=== PATIENT | female | born 1955 | race African-American/Black ===

== ENCOUNTER 2017-11-08 08:00 | Emergency (ER) | payer MEDICARE, MEDICAID ==
[~2017-11-08] VITALS: Ht 157.5 cm; Wt 81.0 kg
[~2017-11-08 08:00] MED LIST: AMLODIPINE5 MG PO; ATORVASTATIN CA10 MG PO; BIOTUSSIN PO; CELEBREX100 M1 PO; CLONIDINE0.1 MG PO; DARVOCET-N 100100 MG OR; DUONEB IN; FAMOTIDINE20 M1 PO; FLEXERIL OR; FLEXERIL PO; GLYBURIDE5 M1 PO; GLYBURIDE5 MG PO; HYDROCHLOROT12.5 MG PO; INCRUSE EL62.5 MCG/I; LISINOP/HCTZ1 TA1 PO; LISINOPRIL20 MG PO; MEDDOSEPAK PO; MELOXICAM15 MG PO; MELOXICAM7.5 MG PO; NAPROSYN500 MG PO; NO HOME MEDS; PAROXETINE HCL30 MG PO; PAROXETINE20 MG PO; PAXIL20 MG OR; PREDNISONE10 MG PO; PREMARIN0.625 MG OR; PREVACID30 MG OR; PROAIR HFA IN; PROVERA5 MG OR; ROBITUSSIN AC10 ML PO; SULAR10 MG OR; TESSALON PER100 MG PO; TRAMADOL HCL50 MG PO; VENTOLIN HFA IN; ZITHROMAX250 MG PO; ZITHROMAX500 MG PO; ZPAK PO
[2017-11-08 09:09] VITALS: BP 159/82
[2017-11-08] MEDS ORDERED: LORTAB 1010 MG PO (09:19)
== END 2017-11-08 11:20 | disposition short-term general hospital (02) ==
LOC: ED 08:00
PROC: 2W3MX1Z Immobilization of Left Lower Extremity using Splint (ICD-10-PCS; principal; 2017-11-08)
DX: S82.62XA Displaced fracture of lateral malleolus of left fibula, initial encounter for closed fracture (principal); S72.422A Displaced fracture of lateral condyle of left femur, initial encounter for closed fracture; M25.562 Pain in left knee; V18.4XXA Pedal cycle driver injured in noncollision transport accident in traffic accident, initial encounter; Y92.414 Local residential or business street as the place of occurrence of the external cause; Y93.55 Activity, bike riding

== ENCOUNTER 2017-11-26 11:21 | Observation (INO) | payer MEDICARE, MEDICAID ==
[~2017-11-26] VITALS: Ht 157.5 cm; Wt 89.2 kg
[~2017-11-26 11:21] MED LIST changes: +LORTAB 1010 MG PO
[2017-11-26] MEDS ORDERED: LOVENOX40 MG/0.4 SC (12:00)
[2017-11-26] MEDS ORDERED: AMLODIPINE5 MG PO (12:02)
[2017-11-26] MEDS ORDERED: LOSARTAN POT50 MG PO (12:02)
[2017-11-26 12:24] LABS: HEMATOCRIT 30.5 % (37.0-47.0); HEMOGLOBIN 9.6 g/dl (12.0-16.0); IMMATURE GRANULOCYTES 0.8 % (0.0-1.0); MEAN CORPUSCULAR HGB 31.5 pG CALC (26.0-32.0); MEAN CORPUSCULAR HGB CONC 31.5 g/L CALC (32.0-36.0); NEUT# 10.2 thou/uL (2.00-7.15); RED BLOOD COUNT 3.05 mill/uL (4.20-5.60); RED CELL DISTRI WIDTH 13.9 % (11.5-15.5)
[2017-11-26 12:47] LABS: ALBUMIN 3.7 g/dL (3.2-5.0); BILIRUBIN, TOTAL 0.7 mg/dL (0.0-1.4); CALCIUM 10.3 mg/dL (8.4-10.2); CREATININE 1.2 mg/dL (0.5-1.0); POTASSIUM 4.2 mmol/l (3.5-5.1)
[2017-11-26 14:06] LABS: MYOGLOBIN 29 ng/mL (0 - 62)
[2017-11-26 17:00] VITALS: BP 155/89
[2017-11-26 18:00] VITALS: BP 149/75
[2017-11-27] VITALS (7 sets, daily range): BP systolic 132–154; BP diastolic 63–82
[2017-11-27 06:29] LABS: HEMATOCRIT 27.7 % (37.0-47.0); HEMOGLOBIN 8.6 g/dl (12.0-16.0); IMMATURE GRANULOCYTES 0.3 % (0.0-1.0); NEUT# 5.94 thou/uL (2.00-7.15); RED BLOOD COUNT 2.77 mill/uL (4.20-5.60); RED CELL DISTRI WIDTH 13.6 % (11.5-15.5)
[2017-11-27 06:59] LABS: ANION GAP 12 (6-22 (CALC)); BUN 17 mg/dL (8-23); BUN/CREATININE RATIO 16 (12-20 (CALC)); CALCIUM 9.8 mg/dL (8.4-10.2); CARBON DIOXIDE 22 mmol/l (22-30); CHLORIDE 108 mmol/l (95-108); CREATININE 1.1 mg/dL (0.5-1.0); GFR 50 ML/MIN (>=60 (CALC)); GFR FOR AFR.AMER. > 60 ML/MIN (>=60 (CALC)); GLUCOSE 113 mg/dL (82-115); MAGNESIUM 1.8 mg/dL (1.6-2.3); POTASSIUM 4.4 mmol/l (3.5-5.1); SODIUM 138 mmol/l (137-146)
[2017-11-27 15:01] LABS: URINE BILIRUBIN - DIPSTICK NEGATIVE (NEGATIVE); URINE BLOOD DIPSTICK NEGATIVE (NEGATIVE); URINE COLOR YELLOW; URINE GLUCOSE - DIPSTICK NEGATIVE (NEGATIVE); URINE KETONE NEGATIVE (NEGATIVE); URINE LEUK ESTERASE NEGATIVE (NEGATIVE); URINE NITRITE - DIPSTICK NEGATIVE (Negative); URINE PROTEIN - DIPSTICK NEGATIVE (NEG-TRACE); URINE UROBILINOGEN - DIPSTICK 0.2 E.U./dL (0.2)
[2017-11-27 15:02] LABS: URINE CLARITY CLEAR
[2017-11-28 05:28] VITALS: BP 155/79
[2017-11-28 06:34] LABS: HEMATOCRIT 28.2 % (37.0-47.0); HEMOGLOBIN 8.7 g/dl (12.0-16.0); IMMATURE GRANULOCYTES 0.5 % (0.0-1.0); MEAN CORPUSCULAR HGB 30.9 pG CALC (26.0-32.0); MEAN CORPUSCULAR HGB CONC 30.9 g/L CALC (32.0-36.0); NEUT# 5.37 thou/uL (2.00-7.15); RED BLOOD COUNT 2.82 mill/uL (4.20-5.60); RED CELL DISTRI WIDTH 13.4 % (11.5-15.5)
[2017-11-28 06:48] LABS: ANION GAP 12 (6-22 (CALC)); BUN 15 mg/dL (8-23); BUN/CREATININE RATIO 13 (12-20 (CALC)); CARBON DIOXIDE 23 mmol/l (22-30); CHLORIDE 109 mmol/l (95-108); CREATININE 1.1 mg/dL (0.5-1.0); GFR 50 ML/MIN (>=60 (CALC)); GFR FOR AFR.AMER. > 60 ML/MIN (>=60 (CALC)); GLUCOSE 125 mg/dL (82-115); MAGNESIUM 1.6 mg/dL (1.6-2.3); POTASSIUM 4.4 mmol/l (3.5-5.1); SODIUM 139 mmol/l (137-146)
[2017-11-28 07:23] VITALS: BP 141/78
[2017-11-28] MEDS ORDERED: OXYCODONE/ACETA1 TA8 PO (11:53)
[2017-11-28] MEDS ORDERED: RESTORIL15 MG PO (11:53)
[2017-11-28 12:02] VITALS: BP 139/79
== END 2017-11-28 14:35 | disposition home health service (06) ==
LOC: ED 11:21 → ED-I 15:04 → ED 15:58 → MS2 15:59
PROVIDERS: Emergency Medicine; Nurse Practitioner Family; ADMIT Internal Medicine; ATTEND Internal Medicine
PROC: 3E0234Z Introduction of Serum, Toxoid and Vaccine into Muscle, Percutaneous Approach (ICD-10-PCS; principal; 2017-11-28)
DX: R07.89 Other chest pain (principal); S43.402A Unspecified sprain of left shoulder joint, initial encounter; S72.92XD Unspecified fracture of left femur, subsequent encounter for closed fracture with routine healing; S82.002D Unspecified fracture of left patella, subsequent encounter for closed fracture with routine healing; S82.892D Other fracture of left lower leg, subsequent encounter for closed fracture with routine healing; M19.90 Unspecified osteoarthritis, unspecified site; F17.210 Nicotine dependence, cigarettes, uncomplicated; J44.9 Chronic obstructive pulmonary disease, unspecified; B19.20 Unspecified viral hepatitis C without hepatic coma; F32.9 Major depressive disorder, single episode, unspecified; K21.9 Gastro-esophageal reflux disease without esophagitis; G89.29 Other chronic pain; M54.9 Dorsalgia, unspecified; E11.22 Type 2 diabetes mellitus with diabetic chronic kidney disease; I12.9 Hypertensive chronic kidney disease with stage 1 through stage 4 chronic kidney disease, or unspecified chronic kidney disease; N18.9 Chronic kidney disease, unspecified; E66.9 Obesity, unspecified; X50.0XXA Overexertion from strenuous movement or load, initial encounter; V13.4XXD Pedal cycle driver injured in collision with car, pick-up truck or van in traffic accident, subsequent encounter; Z79.01 Long term (current) use of anticoagulants; Z68.36 Body mass index [BMI] 36.0-36.9, adult; M25.532 Pain in left wrist; D64.9 Anemia, unspecified; Z23 Encounter for immunization
CPT/HCPCS: J1650; Q9967

== ENCOUNTER → 2018-08-18 | Outpatient (REF) | payer MEDICARE, MEDICAID ==
[~2018-08-18] MED LIST changes: +LOSARTAN POT50 MG PO; +LOVENOX40 MG/0.4 SC; +OXYCODONE/ACETA1 TA8 PO; +RESTORIL15 MG PO
== END | disposition home or self-care (01) ==
LOC: LAB 09:47
PROVIDERS: ATTEND Internal Medicine
DX: I10 Essential (primary) hypertension (principal); E78.49 Other hyperlipidemia; N18.9 Chronic kidney disease, unspecified; E03.9 Hypothyroidism, unspecified; R53.83 Other fatigue; I50.22 Chronic systolic (congestive) heart failure; E11.65 Type 2 diabetes mellitus with hyperglycemia; E55.9 Vitamin D deficiency, unspecified

== ENCOUNTER 2019-01-27 17:08 | Observation (INO) | payer MEDICARE, MEDICAID ==
[~2019-01-27] VITALS: Ht 157.5 cm; Wt 81.8 kg
[2019-01-27] MEDS ORDERED: GLIPIZIDE5 MG PO (17:36)
[2019-01-27] MEDS ORDERED: TRELEGY ELLIPTA1 AER IN (17:38)
[2019-01-27 18:14] LABS: HEMATOCRIT 40.2 % (37.0-47.0); HEMOGLOBIN 12.8 g/dl (12.0-16.0); IMMATURE GRANULOCYTES 0.4 % (0.0-5.0); MEAN CELL VOLUME 96.9 fL CALC (80.0-100.0); MEAN CORPUSCULAR HGB 30.8 pG CALC (26.0-32.0); MEAN CORPUSCULAR HGB CONC 31.8 g/L CALC (32.0-36.0); NEUT# 7.09 thou/uL (2.00-7.15); RED BLOOD COUNT 4.15 mill/uL (4.20-5.60); RED CELL DISTRI WIDTH 12.6 % (11.5-15.5)
[2019-01-27 18:33] LABS: ALBUMIN 4.2 g/dL (3.2-5.0); ALKALINE PHOSPHATASE 134 u/l (38-126); ANION GAP 15 (6-22 (CALC)); BILIRUBIN, TOTAL 0.3 mg/dL (0.0-1.4); BUN 31 mg/dL (8-23); BUN/CREATININE RATIO 15 (12-20 (CALC)); CARBON DIOXIDE 20 mmol/l (22-30); CHLORIDE 108 mmol/l (95-108); CREATININE 2.1 mg/dL (0.5-1.0); GFR 24 ML/MIN (>=60 (CALC)); GFR FOR AFR.AMER. 29 ML/MIN (>=60 (CALC)); LIPASE 18 u/l (23-300); POTASSIUM 4.6 mmol/l (3.5-5.1); SGOT/AST 112 u/l (9-36); SODIUM 138 mmol/l (137-146); TOTAL PROTEIN 7.4 g/dL (6.3-8.2)
[2019-01-27 18:34] LABS: D-DIMER 0.27 mg/L (0.19-0.60); INTERNATIONAL NORMALIZED RATIO 0.9 RATIO (0.7-1.3); PROTHROMBIN TIME 9.8 SECONDS (9.0-12.5)
[2019-01-27 20:35] LABS: URINE BILIRUBIN - DIPSTICK NEGATIVE (NEGATIVE); URINE BLOOD DIPSTICK NEGATIVE (NEGATIVE); URINE COLOR YELLOW; URINE GLUCOSE - DIPSTICK NEGATIVE (NEGATIVE); URINE KETONE TRACE mg/dL (NEGATIVE); URINE LEUK ESTERASE NEGATIVE (NEGATIVE); URINE NITRITE - DIPSTICK NEGATIVE (Negative); URINE PH 5.5 (4.5-8.0); URINE PROTEIN - DIPSTICK TRACE mg/dL (NEG-TRACE); URINE SPECIFIC GRAVITY 1.025; URINE UROBILINOGEN - DIPSTICK 0.2 E.U./dL (0.2)
[2019-01-27 21:10] VITALS: BP 156/84
[2019-01-27 22:26] VITALS: BP 157/77
[2019-01-27 22:55] VITALS: BP 196/84
[2019-01-27 23:50] VITALS: BP 196/84
[2019-01-28] VITALS (11 sets, daily range): BP systolic 136–198; BP diastolic 61–98
[2019-01-28 06:18] LABS: HEMATOCRIT 36.6 % (37.0-47.0); HEMOGLOBIN 11.8 g/dl (12.0-16.0); IMMATURE GRANULOCYTES 0.4 % (0.0-5.0); MEAN CELL VOLUME 97.1 fL CALC (80.0-100.0); MEAN CORPUSCULAR HGB 31.3 pG CALC (26.0-32.0); MEAN CORPUSCULAR HGB CONC 32.2 g/L CALC (32.0-36.0); NEUT# 6.14 thou/uL (2.00-7.15); RED BLOOD COUNT 3.77 mill/uL (4.20-5.60); RED CELL DISTRI WIDTH 12.6 % (11.5-15.5)
[2019-01-28 06:26] LABS: CREATININE 1.3 mg/dL (0.5-1.0); POTASSIUM 4.1 mmol/l (3.5-5.1)
[2019-01-28] MEDS ORDERED: ADVAIR DISK1 PO (16:01)
[2019-01-29 04:06] VITALS: BP 149/73
[2019-01-29 05:42] LABS: ALBUMIN 3.4 g/dL (3.2-5.0); CREATININE 1.2 mg/dL (0.5-1.0); POTASSIUM 4.4 mmol/l (3.5-5.1)
[2019-01-29 07:36] VITALS: BP 175/69
[2019-01-29 11:14] VITALS: BP 143/79
[2019-01-29 15:00] VITALS: BP 137/55
== END 2019-01-29 15:34 | disposition home or self-care (01) ==
LOC: ED 17:08 → ED-I 20:00 → ED 20:18 → MS2 20:19
PROVIDERS: Emergency Medicine; Internal Medicine Nephrology; ADMIT Internal Medicine; ATTEND Internal Medicine
DX: R07.89 Other chest pain (principal); N17.9 Acute kidney failure, unspecified; I12.9 Hypertensive chronic kidney disease with stage 1 through stage 4 chronic kidney disease, or unspecified chronic kidney disease; E11.22 Type 2 diabetes mellitus with diabetic chronic kidney disease; N18.3 Chronic kidney disease, stage 3 (moderate); J44.9 Chronic obstructive pulmonary disease, unspecified; F41.1 Generalized anxiety disorder; F32.9 Major depressive disorder, single episode, unspecified; F17.200 Nicotine dependence, unspecified, uncomplicated; B19.20 Unspecified viral hepatitis C without hepatic coma; D63.1 Anemia in chronic kidney disease; E87.2 Acidosis; N25.81 Secondary hyperparathyroidism of renal origin; R55 Syncope and collapse
CPT/HCPCS: G0378

== ENCOUNTER 2019-03-08 21:21 | Emergency (ER) | payer MEDICARE, MEDICAID ==
[~2019-03-08] VITALS: Ht 157.5 cm; Wt 95.0 kg
[~2019-03-08 21:21] MED LIST changes: +ADVAIR DISK1 PO; +GLIPIZIDE5 MG PO; +TRELEGY ELLIPTA1 AER IN
[2019-03-08 21:55] LABS: HEMATOCRIT 40.9 % (37.0-47.0); HEMOGLOBIN 12.8 g/dl (12.0-16.0); IMMATURE GRANULOCYTES 0.3 % (0.0-5.0); MEAN CELL VOLUME 98.1 fL CALC (80.0-100.0); MEAN CORPUSCULAR HGB 30.7 pG CALC (26.0-32.0); MEAN CORPUSCULAR HGB CONC 31.3 g/L CALC (32.0-36.0); NEUT# 6.86 thou/uL (2.00-7.15); RED BLOOD COUNT 4.17 mill/uL (4.20-5.60); RED CELL DISTRI WIDTH 12.8 % (11.5-15.5)
[2019-03-08 22:44] LABS: CREATININE 1.7 mg/dL (0.5-1.0)
[2019-03-08] MEDS ORDERED: CYCLOBENZAPR5 MG PO (23:22)
[2019-03-09 00:03] VITALS: BP 170/79
[2019-03-09] MEDS ORDERED: PERCOCET 10/31 COMBO PO (12:42)
[2019-03-09] MEDS ORDERED: MEDDOSEPAK PO (12:42)
[2019-03-11] MEDS ORDERED: OMEPRAZOLE20 M1 PO (17:08)
[2019-03-11] MEDS ORDERED: OXYBUTYNIN CHLOR5 M1 PO (17:09)
== END 2019-03-09 00:03 | disposition home or self-care (01) ==
LOC: ED 21:21
PROVIDERS: Family Medicine
DX: M54.2 Cervicalgia (principal); E11.9 Type 2 diabetes mellitus without complications; I10 Essential (primary) hypertension

== ENCOUNTER 2019-03-09 09:35 | Emergency (ER) | payer MEDICARE, MEDICAID ==
[~2019-03-09] VITALS: Ht 157.5 cm; Wt 81.8 kg
[~2019-03-09 09:35] MED LIST changes: +CYCLOBENZAPR5 MG PO
[2019-03-09 10:32] LABS: HEMATOCRIT 39.9 % (37.0-47.0); HEMOGLOBIN 12.7 g/dl (12.0-16.0); IMMATURE GRANULOCYTES 0.4 % (0.0-5.0); MEAN CELL VOLUME 97.1 fL CALC (80.0-100.0); MEAN CORPUSCULAR HGB 30.9 pG CALC (26.0-32.0); MEAN CORPUSCULAR HGB CONC 31.8 g/L CALC (32.0-36.0); NEUT# 7.22 thou/uL (2.00-7.15); RED BLOOD COUNT 4.11 mill/uL (4.20-5.60); RED CELL DISTRI WIDTH 12.6 % (11.5-15.5)
[2019-03-09 11:48] LABS: C-REACTIVE PROTEIN 0.6 mg/dL (0-0.9)
[2019-03-09] MEDS ORDERED: PERCOCET 10/31 COMBO PO (12:42)
[2019-03-09] MEDS ORDERED: MEDDOSEPAK PO (12:42)
[2019-03-09 13:45] VITALS: BP 146/76
[2019-03-11] MEDS ORDERED: OMEPRAZOLE20 M1 PO (17:08)
[2019-03-11] MEDS ORDERED: OXYBUTYNIN CHLOR5 M1 PO (17:09)
== END 2019-03-09 13:50 | disposition home or self-care (01) ==
LOC: ED 09:35
PROVIDERS: Emergency Medicine
DX: M50.30 Other cervical disc degeneration, unspecified cervical region (principal); I10 Essential (primary) hypertension; E11.9 Type 2 diabetes mellitus without complications

== ENCOUNTER 2019-07-08 14:54 | Observation (INO) | payer MEDICARE, MEDICAID ==
[~2019-07-08] VITALS: Ht 157.5 cm; Wt 80.0 kg
[~2019-07-08 14:54] MED LIST changes: +OMEPRAZOLE20 M1 PO; +OXYBUTYNIN CHLOR5 M1 PO; +PERCOCET 10/31 COMBO PO
[2019-07-08 15:23] LABS: HEMATOCRIT 37.7 % (37.0-47.0); HEMOGLOBIN 11.9 g/dl (12.0-16.0); IMMATURE GRANULOCYTES 0.8 % (0.0-5.0); MEAN CELL VOLUME 96.2 fL CALC (80.0-100.0); MEAN CORPUSCULAR HGB 30.4 pG CALC (26.0-32.0); MEAN CORPUSCULAR HGB CONC 31.6 g/L CALC (32.0-36.0); NEUT# 6.46 thou/uL (2.00-7.15); RED BLOOD COUNT 3.92 mill/uL (4.20-5.60); RED CELL DISTRI WIDTH 13.3 % (11.5-15.5)
[2019-07-08 15:42] LABS: ANION GAP 13 (6-22 (CALC)); BUN 18 mg/dL (8-23); BUN/CREATININE RATIO 11 (12-20 (CALC)); CARBON DIOXIDE 22 mmol/l (22-30); CHLORIDE 110 mmol/l (95-108); CREATININE 1.7 mg/dL (0.5-1.0); GFR 30 ML/MIN (>=60 (CALC)); GFR FOR AFR.AMER. 37 ML/MIN (>=60 (CALC)); POTASSIUM 3.8 mmol/l (3.5-5.1); SODIUM 141 mmol/l (137-146)
[2019-07-08] MEDS ORDERED: OMEPRAZOLE20 M1 PO (16:52)
[2019-07-08 18:51] VITALS: BP 178/79
[2019-07-08 22:48] VITALS: BP 144/72
[2019-07-09] VITALS (9 sets, daily range): BP systolic 141–187; BP diastolic 69–88
[2019-07-09 05:38] LABS: HEMATOCRIT 38.8 % (37.0-47.0); HEMOGLOBIN 12.4 g/dl (12.0-16.0); IMMATURE GRANULOCYTES 0.4 % (0.0-5.0); MEAN CELL VOLUME 94.6 fL CALC (80.0-100.0); MEAN CORPUSCULAR HGB 30.2 pG CALC (26.0-32.0); NEUT# 5.05 thou/uL (2.00-7.15); RED BLOOD COUNT 4.1 mill/uL (4.20-5.60)
[2019-07-09 05:58] LABS: ALBUMIN 3.5 g/dL (3.2-5.0); CHOLESTEROL HDL RATIO 2.3 (<4.4 (CALC)); CREATININE 1.3 mg/dL (0.5-1.0); TOTAL PROTEIN 6.4 g/dL (6.3-8.2)
[2019-07-09 06:01] LABS: BILIRUBIN, TOTAL 0.5 mg/dL (0.0-1.4)
[2019-07-10 01:23] VITALS: BP 125/70
[2019-07-10 05:45] VITALS: BP 145/70
[2019-07-10 08:30] VITALS: BP 158/64
[2019-07-10 08:42] VITALS: BP 158/64
[2019-07-10] MEDS ORDERED: GLUCOTROL5 MG PO (10:07)
[2019-07-10] MEDS ORDERED: MEDDOSEPAK PO (10:10)
[2019-07-10] MEDS ORDERED: TRAMADOL HCL50 MG PO (10:10)
[2019-07-10] MEDS ORDERED: FLEXERIL5 MG PO (10:10)
== END 2019-07-10 11:42 | disposition home or self-care (01) ==
LOC: ED 14:54 → ED-I 16:22 → ED 16:34 → MS2 16:35
PROVIDERS: Family Medicine; ADMIT Internal Medicine; ATTEND Internal Medicine
DX: R07.2 Precordial pain (principal); E11.22 Type 2 diabetes mellitus with diabetic chronic kidney disease; I12.9 Hypertensive chronic kidney disease with stage 1 through stage 4 chronic kidney disease, or unspecified chronic kidney disease; N18.9 Chronic kidney disease, unspecified; J44.9 Chronic obstructive pulmonary disease, unspecified; D64.9 Anemia, unspecified; K21.9 Gastro-esophageal reflux disease without esophagitis; F17.200 Nicotine dependence, unspecified, uncomplicated; G47.33 Obstructive sleep apnea (adult) (pediatric); Z79.84 Long term (current) use of oral hypoglycemic drugs

== ENCOUNTER 2020-01-26 09:54 | Observation (INO) | payer MEDICARE, MEDICAID ==
[~2020-01-26] VITALS: Ht 157.5 cm; Wt 75.2 kg
[2020-01-26] VITALS (7 sets, daily range): BP systolic 102–205; BP diastolic 62–105
[~2020-01-26 09:54] MED LIST changes: +FLEXERIL5 MG PO; +GLUCOTROL5 MG PO
--- NOTE | 2020-01-26 10:03 | NUR ---
PT TO ROOM VIA EMS
[2020-01-26] MEDS ORDERED: DITROPAN XL5 MG PO (10:09)
[2020-01-26] MEDS ORDERED: COZAAR100 MG PO (10:10)
[2020-01-26] MEDS ORDERED: RAYALDEE30 MCG PO (10:11)
[2020-01-26] MEDS ORDERED: WIXELA INHUB 251 AER IN (10:13)
[2020-01-26 10:48] LABS: HEMATOCRIT 39.7 % (37.0-47.0); IMMATURE GRANULOCYTES 0.3 % (0.0-5.0); MEAN CELL VOLUME 97.3 fL CALC (80.0-100.0); MEAN CORPUSCULAR HGB 31.9 pG CALC (26.0-32.0); MEAN CORPUSCULAR HGB CONC 32.7 g/L CALC (32.0-36.0); NEUT# 4.27 thou/uL (2.00-7.15); RED BLOOD COUNT 4.08 mill/uL (4.20-5.60); RED CELL DISTRI WIDTH 12.5 % (11.5-15.5)
[2020-01-26 11:01] LABS: ALBUMIN 3.8 g/dL (3.2-5.0); ALKALINE PHOSPHATASE 109 u/l (38-126); AMYLASE 65 u/l (30-110); ANION GAP 11 (6-22 (CALC)); BILIRUBIN, TOTAL 0.5 mg/dL (0.0-1.4); BUN 24 mg/dL (8-23); BUN/CREATININE RATIO 19 (12-20 (CALC)); CARBON DIOXIDE 24 mmol/l (22-30); CHLORIDE 108 mmol/l (95-108); CREATININE 1.3 mg/dL (0.5-1.0); GFR 41 ML/MIN (>=60 (CALC)); GFR FOR AFR.AMER. 50 ML/MIN (>=60 (CALC)); LIPASE < 10 u/l (23-300); POTASSIUM 4.6 mmol/l (3.5-5.1); SGOT/AST 64 u/l (9-36); SODIUM 138 mmol/l (137-146)
--- NOTE | 2020-01-26 11:01 | NUR ---
PT RESTING ON STRETCHER; NO S/SOF DISTRESS NOTED; MONITORING DEVICES IN PLACE; CALL LIGHT WITHIN REACH;WILL CONTINUE TO MONITOR
[2020-01-26 11:25] LABS: MYOGLOBIN 38 ng/mL (0 - 62)
--- NOTE | 2020-01-26 11:45 | NUR ---
DR PABLO AT BEDSIDE TO DISCUCC POC AND FINDINGS
--- NOTE | 2020-01-26 11:52 | NUR ---
PT MEDICATED PER MAR FOR CHESTPRESSURE RATING 6 OUT OF 10; PT ADVISED OF CONTINUED WAIT TIME AND PENDING ADMISSION; DENIES ANY OTHER NEEDS AT THIS TIME; WILL CONTINUE TO MONITOR
--- NOTE | 2020-01-26 12:34 | NUR ---
PT MEDICATED PER MAR FOR PT MAINTANANCE BP MEDICATIONS; PT ADVISED OF CONTINUED WAIT TIME
--- NOTE | 2020-01-26 13:06 | NUR ---
ATTEMPTED TO CALL REPORT TO MS; RN BUSY AND WOULD CALL BACK
--- NOTE | 2020-01-26 13:22 | NUR ---
Admission Note Report Given to: NADER AVITIA Transported by: X Wheelchair Stretcher Transported with: X Nurse Transporter X Patent IV O2 X Training And Development Rep Location: ICU X MS2
--- NOTE | 2020-01-26 13:24 | NUR ---
REPORT RECEIVED FROM PAMELA IN ED, PT TRANSPORTED TO UNIT VIA W/C @ 3725, ALERT AND ORIENTED X 3, DENIES PAIN, TELE MONITOR IN PLACE. ORIENTED TO ROOM AND CALL THAYER, WEIGHED AND SETTLED IN BED, MEAL ORDERED PT STATES SHE HUNGRY, WILL CONTINUE TO MONITOR.
--- NOTE | 2020-01-26 16:38 | NUR ---
JUST STARTED ADMISSION ASSESSMENT, PT STARTED ANSWERING QUESTINGS OK THEN SUDDENLY I OBSERVED HER APPEARANCE WAS CHANGED, WHEN QUESTIONED, SHE STATED SHE DOES NOT FEEL GOOD, SHE BECAME DIAPHORETIC, LETHARGIC AND WEAK. VS MEASURED AND THERE WAS SIGNIFICANT DROP IN BP, WALKING DRAGLINE OILER (DINH) NOTIFIED AND WROTE ORDERS, WILL CONTINUE TO ASSESS AND MONITOR.
--- NOTE | 2020-01-26 18:26 | NUR ---
PT C/O NUMBNESS TO BOTH HANDS STATING THIS IS NEW ONSET, STATES SHE STILL HAS SOME LEFT CHEST PAIN BUT NOT BAD EARLIER, WILL CONTINUE TO MONITOR.
--- NOTE | 2020-01-26 19:45 | NUR ---
PHYSICAL ASSESMENT COMPLETE. PT REPORTS NAUSEA HAS RESOLVED. PT DOES NOT WANT TO EAT DINNER TRAY AND TRAY IS REMOVED PER PT'S REQUEST. MEDICATED FOR C/O PAIN TO L SIDE CHEST, SUBSTERNAL. PAIN DESCRIBED "ACHING" AND CONSTANT. RATES 5/10. SEE MAR FOR ADMIN & F/U. PT DENIES FURTHER NEEDS @ THIS TIME. PLAN OF CARE REVIEWED. PT VERBALIZES UNDERSTANDING AND DENIES QUESTIONS. CALL THAYRE WITHIN REACH, AGREES TO CALL PRN. BED LOCKED IN LOW POSITION W/ BEDRAILS UP X2. ITEMS WITHIN REACH.
--- NOTE | 2020-01-26 20:30 | NUR ---
PT PROVIDED W/ 1/2 TURKEY SANDWICH, JELLO, SMALL SODA CAN ALTERNATIVE TO DINNER TRAY/HS SNACK. PT TOLERATED W/O DIFFICULTY.
--- NOTE | 2020-01-26 23:32 | NUR ---
MEDICATED FOR INSOMNIA, SEE MAR. WARM BLANKETS PROVIDED. CALL THAYER WITHIN REACH. AGREES TO CALL PRN.
--- NOTE | 2020-01-27 04:10 | NUR ---
PT SLEEPING, APPEARS COMFORTABLE AND IN NO DISTRESS. RESP REG AND UNLABORED. CALL THAYER REMAINS WITHIN REACH. BED ALARM ON. BED LOCKED IN LOW POSITION WITH TOP BED RAILS UP X2. ITEMS WITHIN REACH.
[2020-01-27 04:56] LABS: CHOLESTEROL HDL RATIO 2.1 (<4.4 (CALC)); MAGNESIUM 1.9 mg/dL (1.6-2.3)
[2020-01-27 06:10] VITALS: BP 181/80
--- NOTE | 2020-01-27 06:36 | NUR ---
AM ANTIHYPERTENSIVES ADMINISTERED EARLY FOR ELEVATED B/P. WILL ENDORSE TO ONCOMING NURSE TO RECHECK B/P AND ADVISE PHYSICIAN IF B/P REMAINS ELEVATED.
--- NOTE | 2020-01-27 07:00 | NUR ---
SHIFT CHANGE REPORT, PT AWAKE ALERT AND ORIENTED SITTING UP IN BED, C/O SHARP BURNING PAIN TO TRACY BREASTS RADIATING TO UPPER BACK THAT SHE HAS BEEN EXPERIENCING FOR SOME TIME NOW, SHE ALSO STATES SHE FEELS BETTER THAN SHE DID YESTERDAY, TELE MONITOR IN PLACE, CALL THAYER IN REACH.
[2020-01-27 07:50] VITALS: BP 173/81
[2020-01-27 10:03] LABS: CREATININE 1.3 mg/dL (0.5-1.0); POTASSIUM 4.8 mmol/l (3.5-5.1)
[2020-01-27 11:01] VITALS: BP 143/76
[2020-01-27] MEDS ORDERED: FLEXERIL5 M1 PO (11:58)
[2020-01-27] MEDS ORDERED: TRAMADOL HCL50 MG PO (11:58)
--- NOTE | 2020-01-27 12:00 | NUR ---
MEDICAL TEAM ROUNDED AND DISCUSSED PLAN OF CARE, PT ATE MEAL, REPORTS FEELING BETTER.
== END 2020-01-27 17:06 | disposition home or self-care (01) ==
LOC: ED 09:54 → ED-I 11:40 → ED 11:51 → MS2 11:52 → ED-I 11:52 → MS2 12:11
PROVIDERS: Emergency Medicine; Nurse Practitioner Family; ADMIT Internal Medicine; ATTEND Internal Medicine
DX: S29.011A Strain of muscle and tendon of front wall of thorax, initial encounter (principal); I16.0 Hypertensive urgency; I12.9 Hypertensive chronic kidney disease with stage 1 through stage 4 chronic kidney disease, or unspecified chronic kidney disease; E11.22 Type 2 diabetes mellitus with diabetic chronic kidney disease; N18.2 Chronic kidney disease, stage 2 (mild); J43.9 Emphysema, unspecified; G47.33 Obstructive sleep apnea (adult) (pediatric); K21.9 Gastro-esophageal reflux disease without esophagitis; F17.200 Nicotine dependence, unspecified, uncomplicated; M19.90 Unspecified osteoarthritis, unspecified site; B19.20 Unspecified viral hepatitis C without hepatic coma; E03.9 Hypothyroidism, unspecified; X50.3XXA Overexertion from repetitive movements, initial encounter; Y93.H9 Activity, other involving exterior property and land maintenance, building and construction; Z79.84 Long term (current) use of oral hypoglycemic drugs
CPT/HCPCS: G0378

== ENCOUNTER 2020-07-11 07:30 | Observation (INO) | payer MEDICARE, MEDICAID ==
[2020-07-11] VITALS (16 sets, daily range): BP systolic 129–191; BP diastolic 67–95
[~2020-07-11] VITALS: Ht 157.5 cm; Wt 76.7 kg
[~2020-07-11 07:30] MED LIST changes: +COZAAR100 MG PO; +DITROPAN XL5 MG PO; +FLEXERIL5 M1 PO; +RAYALDEE30 MCG PO; +WIXELA INHUB 251 AER IN
--- NOTE | 2020-07-11 07:40 | NUR ---
PATIENT AMBULATED TO ROOM BY AMBULANCE AND PHYSICIAN AT BEDSIDE FOR EVAL
--- NOTE | 2020-07-11 07:45 | NUR ---
PT ASSESSED. CHANGED TO GOWN. MONITORS IN PLACE. PT COMPLAINS OF 10/10 PAIN TO LEFT ARM AND SHOULDER SINCE SATURDAY. HAS NOT BEEN ABLE TO MOVE ARE. LEFT HAND SWOLLEN. RING REMOVED, PLACED IN CONTAINER, LABELED AND PUT IN PTS PURSE. PT AWARE OF THIS. PT AO X 3, SKIN PINK WARM AND DRY. UNABLE TO RAISE OR HOLD LEFT ARM FOR NIHSS DUE TO PAIN
[2020-07-11 08:27] LABS: HEMATOCRIT 38.2 % (37.0-47.0); HEMOGLOBIN 11.8 g/dl (12.0-16.0); IMMATURE GRANULOCYTES 0.5 % (0.0-5.0); MEAN CELL VOLUME 96.7 fL CALC (80.0-100.0); MEAN CORPUSCULAR HGB 29.9 pG CALC (26.0-32.0); MEAN CORPUSCULAR HGB CONC 30.9 g/dL CAL (32.0-36.0); NEUT# 11.66 thou/uL (2.00-7.15); RED BLOOD COUNT 3.95 mill/uL (4.20-5.60)
[2020-07-11 08:47] LABS: ALBUMIN 3.9 g/dL (3.2-5.0); ALKALINE PHOSPHATASE 122 u/l (38-126); ANION GAP 12 (6-22 (CALC)); BILIRUBIN, TOTAL 0.5 mg/dL (0.0-1.4); BUN 18 mg/dL (8-23); BUN/CREATININE RATIO 14 (12-20 (CALC)); CARBON DIOXIDE 24 mmol/l (22-30); CHLORIDE 104 mmol/l (95-108); CREATININE 1.3 mg/dL (0.5-1.0); GFR 41 ML/MIN (>=60 (CALC)); GFR FOR AFR.AMER. 50 ML/MIN (>=60 (CALC)); POTASSIUM 4.7 mmol/l (3.5-5.1); SGOT/AST 41 u/l (9-36); SODIUM 135 mmol/l (137-146); TOTAL PROTEIN 6.9 g/dL (6.3-8.2)
--- NOTE | 2020-07-11 09:15 | NUR ---
PT RETURNED FROM XRAY. MONITORS IN PLACE. POSITION OF COMFORT. BLANKET GIVEN
--- NOTE | 2020-07-11 10:30 | NUR ---
PT RESTING ON STRETCHER. IV ANTIBIOTICS INFUSING
--- NOTE | 2020-07-11 10:30 | NUR ---
REPORT CALLED TO PAOLA DOE ICU
--- NOTE | 2020-07-11 10:50 | NUR ---
PT ADMITTED TO ICU BED 5 FROM ED FOR CVA RULE OUT. PT TRANSFERRED TO BED FROM STRETCHER WITH MAX ASSIST. PT A&OX4, ABLE TO MAKE NEEDS KNOWN. SR ON TELEMETRY, HR 78. PT DENIES CP, SOB OR DISTRESS. PT VERY PROTECTIVE OF LUE, GUARDING, STATES PAIN 10/10, DENIES FALLING OR HITTING ARM. LUE SWOLLEN, PP STRONG. PT UNABLE TO MAKE FIST, MOVE FINGERS OR LIFT ARM AT THIS ITME. RESPIRATIONS EVEN/UNLABORED, SA02@99%RA, LS CLEAR THROUGHOUT. ABDOMEN SOFT, NON-TENDER, BSX4 ACTIVE. PT REPORTS LBM 8-30-20. PT REMAINS NPO, 20G TO LEJ/SL, FLUSHES WITHOUT DIFFICULTY, GOOD BLOOD RETURN. PT ORIENTED TO ROOM, UNIT, AND CALL LIGHT. WILL MONITOR.
--- NOTE | 2020-07-11 10:50 | NUR ---
PT TRANSPORTED VIA STRETCHER, MONITOR IN PLACE TO ICU
--- NOTE | 2020-07-11 11:25 | NUR ---
NOTIFIED SHAWN DONATO OF PT PAIN LEVEL AND SWELLING AT LUE, NEW ORDERS RECIEVED.
--- NOTE | 2020-07-11 12:00 | NUR ---
ALEXANDRA WITH OT AT BEDSIDE FOR ASSESSMENT.
--- NOTE | 2020-07-11 12:24 | NUR ---
LAB AT BEDSIDE FOR BLOOD DRAW.
--- NOTE | 2020-07-11 12:45 | NUR ---
OFF UNIT TO CT SCAN VIA WC.
--- NOTE | 2020-07-11 13:05 | NUR ---
SP THERAPY AT BEDSIDE FOR ASSESSMENT
--- NOTE | 2020-07-11 13:37 | NUR ---
SHAWN DONATO AT BEDSIDE FOR ASSESSMENT AND TO DISCUSS PLAN OF CARE.
--- NOTE | 2020-07-11 13:39 | NUR ---
PT ARRIVED AT BEDSIDE FOR VISIT.
--- NOTE | 2020-07-11 13:54 | NUR ---
OBTAINED BLOOD FOR LABS VIA LEJ, PT TOLERATED WELL. LAB NOTIFIED.
[2020-07-11] MEDS ORDERED: EPCLUSA PO (14:16)
[2020-07-11 14:29] LABS: C-REACTIVE PROTEIN 2.9 mg/dL (0-0.9)
--- NOTE | 2020-07-11 15:40 | NUR ---
PT ASSISTED TO BSC, VOIDED 500ML YELLOW URINE. SPECIMEN OBTAINED AND SENT TO LAB.
[2020-07-11 15:53] LABS: URINE BILIRUBIN - DIPSTICK NEGATIVE (NEGATIVE); URINE BLOOD DIPSTICK NEGATIVE (NEGATIVE); URINE COLOR YELLOW; URINE GLUCOSE - DIPSTICK NEGATIVE (NEGATIVE); URINE KETONE NEGATIVE (NEGATIVE); URINE NITRITE - DIPSTICK NEGATIVE (Negative); URINE PROTEIN - DIPSTICK NEGATIVE (NEG-TRACE); URINE SPECIFIC GRAVITY 1.025; URINE UROBILINOGEN - DIPSTICK 0.2 E.U./dL (0.2)
[2020-07-11 15:56] LABS: URINE LEUK ESTERASE SMALL (NEGATIVE)
[2020-07-11 16:09] LABS: URINE RBC 0-2 RBC/hpf (0-5); URINE SQUAMOUS EPITHELIAL CELL FEW EPI/hpf (0-FEW); URINE WBC 0-2 WBC/hpf (0-5)
--- NOTE | 2020-07-11 16:22 | NUR ---
PT CALLED WITH CODE. UPDATE GIVEN.
--- NOTE | 2020-07-11 17:15 | NUR ---
DIETARY ON UNIT, DINNER TRAY SET UP.
--- NOTE | 2020-07-11 19:00 | NUR ---
RECEIVED REPORT. BEDRESTING WITH LEFT ARM ELEVATED. C/O LEFT SHOULDER PAIN WHICH RADIATES DOWN LEFT ARM AND WORSE WITH MOVEMENT. LEFT ARM WARM TO TOUCH. ALSO, C/O PAIN OF LEFT GROIN. PT SATATES "THE MORE IT RAINS, THE WORSE MY JOINTS ACHE AND THE MORE PAIN TO MOVE THEM". BLOOD DRAWN FOR LAST TROPONIN
--- NOTE | 2020-07-11 20:50 | NUR ---
BEDRESING. EYES CLOSED. N/C OR DISTRESS NOTED.
--- NOTE | 2020-07-11 21:10 | NUR ---
ACCUCHECK 191. DENIES NEEDS/PAIN. SCHED MEDS GIVEN AND SNACK PROVIDED. ENCOURAGED TO CALL FOR ANY NEEDS. CALL LIGHT IS IN REACH.
--- NOTE | 2020-07-11 23:00 | NUR ---
bedresting. eyes closed. no distress noted
[2020-07-12] VITALS (15 sets, daily range): BP systolic 131–169; BP diastolic 67–96
--- NOTE | 2020-07-12 00:20 | NUR ---
LAB HERE FOR LAST TROPONIN TO BE DRAWN-TOLERATED WELL. AFTER, STANDBY ASSIST TO BSC.
--- NOTE | 2020-07-12 01:28 | NUR ---
BEDRESTING. INTERMITTENT SNOORING NOTED. N/C VOICED
--- NOTE | 2020-07-12 02:30 | NUR ---
TO BSC WITH STANDBY ASSIST-TOLREATED WELL
--- NOTE | 2020-07-12 04:30 | NUR ---
BEDRESTING. LIGHTS OUT. EYES CLOSED. RESP EVEN AND NONLABORED. NO DISTRESS NOTED
[2020-07-12] MEDS ORDERED: OMEPRAZOLE20 MG PO (05:11)
--- NOTE | 2020-07-12 05:11 | NUR ---
PT. C/O INDEGESTION AND REPORTS TAKING OMEPRAZOLE AT HOME AND UPDATED IN MED REC; PT. MEDICATED WITH ORDERED PRN ZOFRAN ALONG ITH SCHEDULED HEPARIN. MILK PROVIDED TO ASSIST WITH INDIGESTION. DENIES FURTHER NEEDS.
[2020-07-12 05:39] LABS: CHOLESTEROL HDL RATIO 2.8 (<4.4 (CALC)); MAGNESIUM 2.1 mg/dL (1.6-2.3)
--- NOTE | 2020-07-12 06:36 | NUR ---
BEDRESTING. STATES FEELS BETTER. STILL A LITTLE CHILLY, EVEN WITH AN EXTRA BLANKET. N/C AT THIS TIME
--- NOTE | 2020-07-12 06:45 | NUR ---
REPORT RECEIVED FROM JUSTINO DOE. CARE ASSUMED.
--- NOTE | 2020-07-12 07:00 | NUR ---
PT RESTING IN BED AWAKE. PT IS ALERT AND ORIENTED X3. SHIFT ASSESSMENT COMPLETED AT THIS TIME. IV PATENT X1. CALL LIGHT IN REACH. WILL CONTINUE TO MONITOR.
--- NOTE | 2020-07-12 07:20 | NUR ---
PT TO MRI VIA WHEELCHAIR ACCOMPANIED BY HOME SALES SERVICE PROFESSIONALCHLOE IZAGUIRRE.
[2020-07-12 07:32] LABS: HEMATOCRIT 36.8 % (37.0-47.0); HEMOGLOBIN 11.7 g/dl (12.0-16.0); IMMATURE GRANULOCYTES 0.5 % (0.0-5.0); MEAN CELL VOLUME 95.1 fL CALC (80.0-100.0); MEAN CORPUSCULAR HGB 30.2 pG CALC (26.0-32.0); MEAN CORPUSCULAR HGB CONC 31.8 g/dL CAL (32.0-36.0); NEUT# 14.76 thou/uL (2.00-7.15); RED BLOOD COUNT 3.87 mill/uL (4.20-5.60); RED CELL DISTRI WIDTH 11.9 % (11.5-15.5)
[2020-07-12 07:37] LABS: ALBUMIN 3.7 g/dL (3.2-5.0); BILIRUBIN, TOTAL 0.4 mg/dL (0.0-1.4); CREATININE 1.5 mg/dL (0.5-1.0); TOTAL PROTEIN 6.7 g/dL (6.3-8.2)
[2020-07-12 07:44] LABS: POTASSIUM 5.3 mmol/l (3.5-5.1)
--- NOTE | 2020-07-12 07:45 | NUR ---
PT RETURNED FROM MRI VIA WHEELCHAIR. UNABLE TO PERFORM MRI.
--- NOTE | 2020-07-12 08:31 | NUR ---
PT TEARFUL AND STATING HEAD HURTS AND SHE FEELS DEPRESSED. DR KEITH NOTIFIED.
--- NOTE | 2020-07-12 08:32 | NUR ---
ADDENDUM: PT ATTEMPTED TO EVALUATE THE PATIENT ON 07/11/2020 AT 01:25 PM, HOWEVER, SPEECH THERAPISTS WERE EVALUATING THE PATIENT AND STATED THAT THEY WILL BE FINISHED BY 2:00 PM.
--- NOTE | 2020-07-12 08:53 | NUR ---
DR KEITH AT BEDSIDE.
--- NOTE | 2020-07-12 09:43 | NUR ---
PT ASSISTED UP TO BS TO VOID. THEN ASSISTED BACK TO BED.
--- NOTE | 2020-07-12 10:37 | NUR ---
report called to lu cru[facility] on [facility]
--- NOTE | 2020-07-12 10:40 | NUR ---
PHYSICAL THERAPY AT BEDSIDE.
--- NOTE | 2020-07-12 11:00 | NUR ---
PT TRANSFERRED TO MED SURG VIA WHEELCHAIR ACCOMPANIED BY THIS NURSE. BED SIDE REPORT GIVEN TO CHARLES DOE WELL.
--- NOTE | 2020-07-12 11:30 | NUR ---
PT PRESENTS TO MED/SURG ROOM 269 FROM ICU ALERT AND ORIENTED X 3. LEFT ARM IS PAINFUL FOR HER TO MOVE, THUS SLING PROVIDED. PT IS NEGATIVE FOR NIHSS, 1 FOR LEFT ARM DRIFT ONLY, WHICH HAS BEEN THERE FOR SOME TIME. NO COMPLAINTS, NO DISTRESS OBSERVED.
--- NOTE | 2020-07-12 19:24 | NUR ---
PT. SITTING UP IN BED WITH NO RESP. DISTRESS NOTED; DENIES NEEDS AT THIS TIME. ASSESSMENT COMPLETED. NEURO CHECK AT BASELINE; NO CHANGES. LEFT ARM IN SLING; PT. CONTINUES TO REPORT PAIN WITH MOVEMENT. ENCOURAGED TO CALL FOR ANY NEEDS. CALL LIGHT IS IN REACH. WILL CONITNUE TO MONITOR.
--- NOTE | 2020-07-12 23:18 | NUR ---
VSS. NO DISTRESS NOTED. DENIES NEEDS/PAIN. ENCOURAGED TO CALL FOR ANY NEEDS. CALL LIGHT IS IN REACH. COFFEE PROVIDED.
--- NOTE | 2020-07-13 02:45 | NUR ---
PT. C/O LEFT ARM PAIN AND MEDICATED WITH ORDERED PRN MORPHINE; WILL REASSESS. COMMODE EMPTIED.
[2020-07-13 03:34] VITALS: BP 146/70
[2020-07-13 07:40] VITALS: BP 158/71
--- NOTE | 2020-07-13 07:40 | NUR ---
PT SITTING IN BED. &O X3. NO DISTRESS NOTED. SLING TO LT ARM IN PLACE. PT DENIES ANY CURRENT PAIN AT THIS TIME. NO OTHER NEEDS AT THIS TIME. ASSESSMENT COMPLETED. DISCUSSED POC. CALL LIGHT IN REACH. CONTINUE TO MONITOR.
[2020-07-13 08:39] LABS: HEMATOCRIT 34.1 % (37.0-47.0); HEMOGLOBIN 10.6 g/dl (12.0-16.0); MEAN CELL VOLUME 95.3 fL CALC (80.0-100.0); MEAN CORPUSCULAR HGB 29.6 pG CALC (26.0-32.0); MEAN CORPUSCULAR HGB CONC 31.1 g/dL CAL (32.0-36.0); RED BLOOD COUNT 3.58 mill/uL (4.20-5.60); RED CELL DISTRI WIDTH 11.5 % (11.5-15.5)
[2020-07-13 08:50] LABS: CREATININE 1.4 mg/dL (0.5-1.0); POTASSIUM 5.5 mmol/l (3.5-5.1)
[2020-07-13 10:30] VITALS: BP 150/72
--- NOTE | 2020-07-13 10:50 | NUR ---
Pt. found resting in bed, informed pt. of treatment plan of which she agreed to participate in physical therapy. Pt. reports she is familiar with exercise as she used to attend a class before. Started treatment with in room gait training 2x25 feet with CGA of 1, pt. refused use of assistive devices. Pt. required CGA and intermittent cues for safety. At the foot of the bed. pt. used R hand on railing and also performed standing: marching, heel raises, hip abduction and mini squat exercises x 10 repetitions each with CGA and verbal instruction. Pt. returned to sit then supine with min. assist x 1. Reviewed use of call light and left within reach. Pt. without questions/concerns after treatment. Floor nurse informed of pt.'s request for BSC to be emptied. AMPAC score:16.
[2020-07-13] MEDS ORDERED: ULTRAM50 MG PO (11:48)
[2020-07-13] MEDS ORDERED: PREDNISONE10 MG PO (11:48)
--- NOTE | 2020-07-13 13:02 | NUR ---
Discharge instructions given. Patient verbalizes understanding of same. Discharged in stable condition via Wheelchair to Home accompanied by staff. All belongings sent with pt.
--- NOTE | 2020-07-13 13:34 | NUR ---
LEI MAKER screened patient following physician's diet order change. Patient did not have any signs or symptoms of aspiration. LEI MAKER provided education about posture and rate of eating. Patient repeated instructions back to LEI MAKER to ensure understanding.
== END 2020-07-13 13:02 | disposition home health service (06) ==
LOC: ED 07:30 → ED-I 09:20 → ED 09:36 → MS2 09:37 → ICU 10:09 → MS2 10:09 → ICU 10:09 → MS2 07-12 10:59
PROVIDERS: Family Medicine; Nurse Practitioner; ADMIT Internal Medicine; ATTEND Internal Medicine
DX: M13.89 Other specified arthritis, multiple sites (principal); J43.9 Emphysema, unspecified; D72.829 Elevated white blood cell count, unspecified; E87.5 Hyperkalemia; I12.9 Hypertensive chronic kidney disease with stage 1 through stage 4 chronic kidney disease, or unspecified chronic kidney disease; E11.22 Type 2 diabetes mellitus with diabetic chronic kidney disease; N18.2 Chronic kidney disease, stage 2 (mild); G47.00 Insomnia, unspecified; B19.20 Unspecified viral hepatitis C without hepatic coma; K21.9 Gastro-esophageal reflux disease without esophagitis; G47.33 Obstructive sleep apnea (adult) (pediatric); F17.200 Nicotine dependence, unspecified, uncomplicated; Z79.84 Long term (current) use of oral hypoglycemic drugs; Z20.828 Contact with and (suspected) exposure to other viral communicable diseases
CPT/HCPCS: G0378

== ENCOUNTER 2020-09-28 10:47 | Observation (INO) | payer MEDICARE, MEDICAID ==
[~2020-09-28] VITALS: Ht 154.9 cm; Wt 78.6 kg
[~2020-09-28 10:47] MED LIST changes: +EPCLUSA PO; +OMEPRAZOLE20 MG PO; +ULTRAM50 MG PO
--- NOTE | 2020-09-28 10:50 | NUR ---
PT AMBULATED TO ROOM WITH STEADY GAIT FOR BEDSIDE TRIAGE, DECLINED WC
[2020-09-28 11:40] LABS: IMMATURE GRANULOCYTES 0.4 % (0.0-5.0); MEAN CELL VOLUME 98.6 fL CALC (80.0-100.0); MEAN CORPUSCULAR HGB 30.8 pG CALC (26.0-32.0); MEAN CORPUSCULAR HGB CONC 31.2 g/dL CAL (32.0-36.0); NEUT# 10.04 thou/uL (2.00-7.15); RED BLOOD COUNT 4.19 mill/uL (4.20-5.60); RED CELL DISTRI WIDTH 14.2 % (11.5-15.5)
[2020-09-28 11:45] LABS: ALKALINE PHOSPHATASE 92 u/l (38-126); BILIRUBIN, TOTAL 0.5 mg/dL (0.0-1.4); BUN 23 mg/dL (8-23); BUN/CREATININE RATIO 14 (12-20 (CALC)); CHLORIDE 107 mmol/l (95-108); CREATININE 1.6 mg/dL (0.5-1.0); GFR 32 ML/MIN (>=60 (CALC)); GFR FOR AFR.AMER. 39 ML/MIN (>=60 (CALC)); POTASSIUM 4.4 mmol/l (3.5-5.1); SGOT/AST 38 u/l (9-36); SODIUM 141 mmol/l (137-146); TOTAL PROTEIN 7.9 g/dL (6.3-8.2)
[2020-09-28 11:48] LABS: ALBUMIN 4.5 g/dL (3.2-5.0); ANION GAP 12 (6-22 (CALC)); CARBON DIOXIDE 26 mmol/l (22-30)
[2020-09-28 11:54] LABS: HEMATOCRIT 41.3 % (37.0-47.0); HEMOGLOBIN 12.9 g/dl (12.0-16.0)
--- NOTE | 2020-09-28 12:10 | NUR ---
PT AMBULATED TO BATHROOM WITHOUT SOB OR CHEST PAIN.
--- NOTE | 2020-09-28 13:32 | NUR ---
PT RETURNED FROM XRAY. IV INFILTRATED DURING CT. REMOVED AT THIS TIME.
--- NOTE | 2020-09-28 14:45 | NUR ---
PT COMFORTABLE IN BED. ATTACHED TO MONITOR. NEW IV SITE OBTAINED. PENDING ADMISSION.
[2020-09-28] MEDS ORDERED: AMLODIPINE BESY10 MG PO (14:49)
[2020-09-28] MEDS ORDERED: FUROSEMIDE20 MG PO (14:53)
[2020-09-28] MEDS ORDERED: LOSARTAN POTASS50 MG PO (14:54)
[2020-09-28] MEDS ORDERED: LOPRESSOR50 M1 PO (14:55)
[2020-09-28] MEDS ORDERED: ADULT ASPIRIN R81 MG PO (14:56)
[2020-09-28] MEDS ORDERED: OMEPRAZOLE20 MG PO (14:57)
[2020-09-28] MEDS ORDERED: GLIPIZIDE5 MG PO (14:57)
--- NOTE | 2020-09-28 15:55 | NUR ---
PT REPORTS PAIN IMPROVED. BED IN LOW POSITION. CALL LIGHT WITHIN REACH.
--- NOTE | 2020-09-28 16:20 | NUR ---
ATTEMPTED TO CALL REPORT TO M/S.
--- NOTE | 2020-09-28 16:42 | NUR ---
REPORT CALLED TO NURSE IRIS SANTA.
--- NOTE | 2020-09-28 16:50 | NUR ---
BP ELEVATED. 0.1 CLONIDINE GIVEN PO. WILL RECHK BP IN 20MINS
--- NOTE | 2020-09-28 18:29 | NUR ---
PT BP IMPROVED, UPDATED BP 178/71, REPORT CALLED TO NADER SIMMONS ON [facility]
[2020-09-28 18:35] VITALS: BP 183/77
--- NOTE | 2020-09-28 18:38 | NUR ---
PT ARRIVED TO [facility] ROOM 267 VIA WHEELCHAIR ACCOMPAINED BY ER STAFF. PT AMBULATED FROM WHEELCHAIR TO BED WITH NO DIFFICULTY. VITALS OBATINED. PT OREINTED TO ROOM AND CALL LIGHT SYSTEM. PT DENIES ANY NEEDS AT THIS TIME. WRITTER EXPLAINED THAT SHIFT CHANGE WAS IN PROGRESS AND NIGHT NURSE WOULD BE TAKING OVER. PT VERBAILZED UNDERSTANDING. ALL SAFETY PRECAUTIONS IN PLACE WITH CALL LIGHT IN REACH. ENCOURAGED PT TO CALL IF NEEDED ASSIST. WILL CONTINUE TO MONITOR
--- NOTE | 2020-09-28 19:30 | NUR ---
PATIENT RESTING IN BED AT THIS TIME WITH HOB ELEVATED. PATIENT IS AWAKE ALERT AND ORIENTEDX3. PATIENT C/O CHEST PRESSURE THAT RADIATES TO HER BACK AND SHOULDER BLADES. STATES 9/10 AND STATES THAT SHE HAS HAD THIS PAIN FOR A COUPLE OF DAYS. WAS SEE AT CLINIC TODAY AND SENT TO THE HOSPITAL FOR HTN. BP-183/77, HR-64 AT THIS TIME. TELE MONITOR IN PLACE. SALINE LOCK TO LEFT NECK-SITE APPEARS HEALTHY AT THIS TIME. LUNGS ARE CLEAR. NO PERIPHERAL EDEMA NOTED. DENIES ANY DIFFICULTY WITH URINATION AND STATES THAT SHE HAS BEEN HAVING LOOSE STOOLS LAST TIME IN THE ER HERE. PATIENT ORIENTED TO ROOM AND SURROUNDINGS. INSTRUCTED ON USE OF NURSE CALL LIGHT, TV REMOTE, AND USE OF PHONE. SAFETY PRECAUTIONS IN PLACE. CALL LIGHT IN REACH. WILL CONT TO MONITOR
[2020-09-28 21:14] VITALS: BP 167/88
--- NOTE | 2020-09-28 22:14 | NUR ---
SPOKE WITH DR VICTOR MANUEL WHYTE PATIENT BP AND PAIN-NEW ORDERS RECIEVED-LOPRESSOR 50MG PO GIVEN ORDERED AND ULTRAM 50MG PO GIVEN FOR CHEST PAIN RADIATING TO HER BACK. PT RESTING IN BED WATCHING TV. ATE WELL FOR DINNER. TELE MONITOR IN PLACE. CALL LIGHT IN REACH. WILL CONT TO MONITOR.
--- NOTE | 2020-09-28 23:42 | NUR ---
PATIENT RESTING IN BED-STATES THAT HER PAIN IS BETTER IN HER CHEST AFTER ULTRAM. NO COMPLAINTS AT THIS TIME. LAST TROP WAS NEG. TELE MONITOR IN PLACE. CALL LIGHT IN REACH. WILL CONT TO MONITOR.
[2020-09-29] VITALS: BP 151/73
[2020-09-29 03:23] VITALS: BP 136/76
--- NOTE | 2020-09-29 03:31 | NUR ---
BP IS MUCH BETTER THIS MORNING. PATIENT RESTING IN BED AND APPEARS SLEEPING AT THIS TIME. TELE MONITOR IN PLACE. LEFT NECK IV SITE INTACT. CALL LIGHT IN REACH. WILL CONT TO MONITOR.
--- NOTE | 2020-09-29 04:37 | NUR ---
PATIENT RESTING IN BED WATCHING TV. PATIENT MEDICATED WITH ULTRAM FOR CHEST AND BACK PAIN. TELE MONITOR IN PLACE. IV SITE TO LEFT NECK REMAINS INTACT. CALL LIGHT IN REACH. WILL CONT TO MONITOR.
[2020-09-29 06:08] LABS: HEMATOCRIT 36.1 % (37.0-47.0); HEMOGLOBIN 11.1 g/dl (12.0-16.0); IMMATURE GRANULOCYTES 0.3 % (0.0-5.0); MEAN CELL VOLUME 98.9 fL CALC (80.0-100.0); MEAN CORPUSCULAR HGB 30.4 pG CALC (26.0-32.0); MEAN CORPUSCULAR HGB CONC 30.7 g/dL CAL (32.0-36.0); NEUT# 6.04 thou/uL (2.00-7.15); RED BLOOD COUNT 3.65 mill/uL (4.20-5.60)
[2020-09-29 06:10] LABS: BILIRUBIN, TOTAL 0.4 mg/dL (0.0-1.4); CREATININE 1.5 mg/dL (0.5-1.0); POTASSIUM 4.1 mmol/l (3.5-5.1)
[2020-09-29 06:14] LABS: ALBUMIN 3.2 g/dL (3.2-5.0); TOTAL PROTEIN 5.9 g/dL (6.3-8.2)
[2020-09-29 07:30] VITALS: BP 159/82
--- NOTE | 2020-09-29 07:30 | NUR ---
ASSESSMENT IS COMPLETED: IV SITE IS FREE FROM REDNESS OR EDEMA HR IS REG,PULSES ARE STRONG X4, ABD IS SOFT WITH ACTIVE BS. BREATH SOUNDS ARE CLEAR, BILATERALLY. C/O MID CHEST PAIN. TELE MONITOR #[id number]
--- NOTE | 2020-09-29 08:30 | NUR ---
DR KEITH IN TO VISIT WITH PT
[2020-09-29] MEDS ORDERED: MEDDOSEPAK PO (10:20)
[2020-09-29] MEDS ORDERED: TIZANIDINE2 MG PO (10:25)
--- NOTE | 2020-09-29 10:45 | NUR ---
PT TRANSPORTED TO HAVE A CXR COMPLETED. VIA WC WITH STAFF. RETURNED AT 11AM AND C/O NAUSEA. NO MEDICATIONS ORDERED AT THIS TIME.
[2020-09-29 11:29] VITALS: BP 169/87
--- NOTE | 2020-09-29 12:00 | NUR ---
PT IS RELAXING IN BED WITH NO DISTRESS. C/O PAIN IN THE MID CHEST EXPLAINED IT WAS MUSCLE PAIN PER MD. VERBALIED UNDERSTANDING.
--- NOTE | 2020-09-29 12:30 | NUR ---
IV SITE DISCONTINUED CATHETER INTACT. NO REDNESS OR EDEMA. PRESSURE APPLIED PT TOLERATED WELL.
--- NOTE | 2020-09-29 13:00 | NUR ---
DISCHARGE INSTRUCTIONS GIVEN AND VERBALIZED UNDERSTANDING, PT TRANSPORTED VIA WC WITH STAFF TO PERSONAL VEHICLE. IV SITE DISCONTINEUD CATHETER INTACT. Discharge instructions given. Patient verbalizes understanding of same. Discharged in stable condition via Wheelchair to Home with family. All belongings sent with pt.
== END 2020-09-29 13:02 | disposition home or self-care (01) ==
LOC: ED 10:47 → ED-I 13:45 → ED 16:21 → MS2 16:22
PROVIDERS: Family Medicine; Nurse Practitioner Family; ADMIT Internal Medicine; ATTEND Internal Medicine
DX: R07.89 Other chest pain (principal); M19.91 Primary osteoarthritis, unspecified site; I10 Essential (primary) hypertension; E11.9 Type 2 diabetes mellitus without complications; J43.9 Emphysema, unspecified; B19.20 Unspecified viral hepatitis C without hepatic coma; K21.9 Gastro-esophageal reflux disease without esophagitis; F41.9 Anxiety disorder, unspecified; G47.33 Obstructive sleep apnea (adult) (pediatric); F32.9 Major depressive disorder, single episode, unspecified; F17.200 Nicotine dependence, unspecified, uncomplicated; Z20.828 Contact with and (suspected) exposure to other viral communicable diseases
CPT/HCPCS: J1650; Q9967

== ENCOUNTER 2021-01-15 09:59 | Inpatient (IN) | payer MEDICARE, MEDICAID ==
[~2021-01-15] VITALS: Ht 157.5 cm; Wt 82.6 kg
[~2021-01-15 09:59] MED LIST changes: +ADULT ASPIRIN R81 MG PO; +AMLODIPINE BESY10 MG PO; +FUROSEMIDE20 MG PO; +LOPRESSOR50 M1 PO; +LOSARTAN POTASS50 MG PO; +TIZANIDINE2 MG PO
[2021-01-15] MEDS ORDERED: CIPROFLOXACN500 MG PO (11:20)
[2021-01-15 12:00] LABS: HEMATOCRIT 33.4 % (37.0-47.0); HEMOGLOBIN 10.4 g/dl (12.0-16.0); IMMATURE GRANULOCYTES 0.4 % (0.0-5.0); MEAN CELL VOLUME 99.1 fL CALC (80.0-100.0); MEAN CORPUSCULAR HGB 30.9 pG CALC (26.0-32.0); MEAN CORPUSCULAR HGB CONC 31.1 g/dL CAL (32.0-36.0); NEUT# 5.26 thou/uL (2.00-7.15); RED BLOOD COUNT 3.37 mill/uL (4.20-5.60); RED CELL DISTRI WIDTH 14.3 % (11.5-15.5)
[2021-01-15 12:11] LABS: INTERNATIONAL NORMALIZED RATIO 1.1 RATIO (0.7-1.3)
[2021-01-15 12:13] LABS: CREATININE 1.4 mg/dL (0.5-1.0); POTASSIUM 4.3 mmol/l (3.5-5.1); TOTAL PROTEIN 6.7 g/dL (6.3-8.2)
[2021-01-15 12:17] LABS: ALBUMIN 3.9 g/dL (3.2-5.0); BILIRUBIN, TOTAL 0.9 mg/dL (0.0-1.4)
[2021-01-15 18:05] VITALS: BP 190/99
[2021-01-15 19:42] VITALS: BP 170/84
[2021-01-15 19:50] VITALS: BP 174/99
[2021-01-15 20:41] VITALS: BP 190/88
[2021-01-16] VITALS: BP 145/80
[2021-01-16 04:00] VITALS: BP 155/82
[2021-01-16 04:12] LABS: HEMATOCRIT 34.3 % (37.0-47.0); IMMATURE GRANULOCYTES 0.5 % (0.0-5.0); MEAN CELL VOLUME 96.6 fL CALC (80.0-100.0); MEAN CORPUSCULAR HGB CONC 32.1 g/dL CAL (32.0-36.0); NEUT# 11.95 thou/uL (2.00-7.15); RED BLOOD COUNT 3.55 mill/uL (4.20-5.60); RED CELL DISTRI WIDTH 14.1 % (11.5-15.5)
[2021-01-16 04:19] LABS: ALBUMIN 3.9 g/dL (3.2-5.0); BILIRUBIN, TOTAL 0.7 mg/dL (0.0-1.4); CREATININE 1.6 mg/dL (0.5-1.0); TOTAL PROTEIN 6.6 g/dL (6.3-8.2)
[2021-01-16 07:30] VITALS: BP 146/68
[2021-01-16 11:00] VITALS: BP 146/88
[2021-01-16 16:55] VITALS: BP 157/93
[2021-01-16 19:00] VITALS: BP 158/92
[2021-01-17] VITALS: BP 143/86
[2021-01-17 04:00] VITALS: BP 139/85
[2021-01-17 08:09] VITALS: BP 151/82
[2021-01-17 10:30] VITALS: BP 134/75
[2021-01-17 11:00] LABS: HEMATOCRIT 37.3 % (37.0-47.0); HEMOGLOBIN 11.3 g/dl (12.0-16.0); IMMATURE GRANULOCYTES 0.5 % (0.0-5.0); MEAN CELL VOLUME 100.5 fL CALC (80.0-100.0); MEAN CORPUSCULAR HGB 30.5 pG CALC (26.0-32.0); MEAN CORPUSCULAR HGB CONC 30.3 g/dL CAL (32.0-36.0); NEUT# 13.8 thou/uL (2.00-7.15); RED BLOOD COUNT 3.71 mill/uL (4.20-5.60); RED CELL DISTRI WIDTH 14.4 % (11.5-15.5)
[2021-01-17 11:20] LABS: ALBUMIN 4.1 g/dL (3.2-5.0); BILIRUBIN, TOTAL 0.6 mg/dL (0.0-1.4); POTASSIUM 4.7 mmol/l (3.5-5.1); TOTAL PROTEIN 6.9 g/dL (6.3-8.2)
[2021-01-17 15:12] VITALS: BP 136/81
[2021-01-17 19:00] VITALS: BP 144/74
[2021-01-18] VITALS: BP 132/67
[2021-01-18 04:00] VITALS: BP 125/67
[2021-01-18 05:13] LABS: HEMATOCRIT 34.2 % (37.0-47.0); HEMOGLOBIN 10.3 g/dl (12.0-16.0); MEAN CELL VOLUME 100.9 fL CALC (80.0-100.0); MEAN CORPUSCULAR HGB 30.4 pG CALC (26.0-32.0); MEAN CORPUSCULAR HGB CONC 30.1 g/dL CAL (32.0-36.0); RED BLOOD COUNT 3.39 mill/uL (4.20-5.60); RED CELL DISTRI WIDTH 14.2 % (11.5-15.5)
[2021-01-18 05:35] LABS: CREATININE 2.3 mg/dL (0.5-1.0); MAGNESIUM 1.6 mg/dL (1.6-2.3)
[2021-01-18 07:18] VITALS: BP 136/73
[2021-01-18 11:07] VITALS: BP 139/85
[2021-01-18 15:25] VITALS: BP 138/83
[2021-01-18 19:00] VITALS: BP 142/88
[2021-01-19] VITALS: BP 155/90
[2021-01-19 04:00] VITALS: BP 146/86
[2021-01-19 04:46] LABS: HEMATOCRIT 36.2 % (37.0-47.0); MEAN CELL VOLUME 99.5 fL CALC (80.0-100.0); MEAN CORPUSCULAR HGB 30.2 pG CALC (26.0-32.0); MEAN CORPUSCULAR HGB CONC 30.4 g/dL CAL (32.0-36.0); RED BLOOD COUNT 3.64 mill/uL (4.20-5.60); RED CELL DISTRI WIDTH 13.8 % (11.5-15.5)
[2021-01-19 05:09] LABS: CREATININE 2.1 mg/dL (0.5-1.0); MAGNESIUM 1.7 mg/dL (1.6-2.3); POTASSIUM 5.1 mmol/l (3.5-5.1)
[2021-01-19 07:24] VITALS: BP 147/94
[2021-01-19 11:31] VITALS: BP 135/81
[2021-01-19] MEDS ORDERED: LEVAQUIN750 M1 PO (11:34)
[2021-01-19] MEDS ORDERED: ULTRAM50 M1 PO (11:36)
[2021-01-19] MEDS ORDERED: GABAPENTIN300 M2 PO (11:38)
[2021-01-19] MEDS ORDERED: PREDNISONE20 MG PO (12:03)
== END 2021-01-19 13:52 | DRG 291 ==
LOC: ED 09:59 → ED-I 15:50 → ED 16:36 → MS2 16:37
PROVIDERS: Emergency Medicine; Nurse Practitioner; ADMIT Internal Medicine; ATTEND Internal Medicine
PROC: 06HY33Z Insertion of Infusion Device into Lower Vein, Percutaneous Approach (ICD-10-PCS; principal; 2021-01-15)
DX: I13.0 Hypertensive heart and chronic kidney disease with heart failure and stage 1 through stage 4 chronic kidney disease, or unspecified chronic kidney disease (principal); J18.9 Pneumonia, unspecified organism; N17.9 Acute kidney failure, unspecified; E11.22 Type 2 diabetes mellitus with diabetic chronic kidney disease; N18.9 Chronic kidney disease, unspecified; I50.9 Heart failure, unspecified; J43.9 Emphysema, unspecified; E11.42 Type 2 diabetes mellitus with diabetic polyneuropathy; G47.33 Obstructive sleep apnea (adult) (pediatric); F32.9 Major depressive disorder, single episode, unspecified; K21.9 Gastro-esophageal reflux disease without esophagitis; F17.200 Nicotine dependence, unspecified, uncomplicated; T50.1X6A Underdosing of loop [high-ceiling] diuretics, initial encounter; Z91.128 Patient's intentional underdosing of medication regimen for other reason; B19.20 Unspecified viral hepatitis C without hepatic coma; Z79.84 Long term (current) use of oral hypoglycemic drugs; Z20.822 Contact with and (suspected) exposure to COVID-19
CPT/HCPCS: J1650; Q9967

== ENCOUNTER 2021-02-01 22:03 | Inpatient (IN) | payer MEDICARE, MEDICAID ==
[~2021-02-01] VITALS: Ht 152.4 cm; Wt 84.0 kg
[~2021-02-01 22:03] MED LIST changes: +CIPROFLOXACN500 MG PO; +GABAPENTIN300 M2 PO; +LEVAQUIN750 M1 PO; +PREDNISONE20 MG PO; +ULTRAM50 M1 PO
--- NOTE | 2021-02-01 22:42 | NUR ---
IV ATTEMPTED WITHOUT SUCCESS. PT STATES THEY HAVE TO PUT IT IN HER NECK. SAT IS NOW AT 94...PT CONTINUES TO BREATHE AT 34 MIN.
[2021-02-01 23:18] LABS: HEMATOCRIT 32.9 % (37.0-47.0); HEMOGLOBIN 10.3 g/dl (12.0-16.0); IMMATURE GRANULOCYTES 0.4 % (0.0-5.0); MEAN CELL VOLUME 97.1 fL CALC (80.0-100.0); MEAN CORPUSCULAR HGB 30.4 pG CALC (26.0-32.0); MEAN CORPUSCULAR HGB CONC 31.3 g/dL CAL (32.0-36.0); NEUT# 7.22 thou/uL (2.00-7.15); RED BLOOD COUNT 3.39 mill/uL (4.20-5.60); RED CELL DISTRI WIDTH 13.5 % (11.5-15.5)
--- NOTE | 2021-02-01 23:26 | NUR ---
BREATHING TREATMENT GIVEN BACK TO BACK.
--- NOTE | 2021-02-01 23:30 | NUR ---
IV ESTABLISHED. MEDS GIVEN. PLACED ON O2.
[2021-02-01 23:35] LABS: ALBUMIN 4.1 g/dL (3.2-5.0); CREATININE 1.7 mg/dL (0.5-1.0); POTASSIUM 4.2 mmol/l (3.5-5.1)
[2021-02-01 23:38] LABS: ACT PARTIAL THROMBO TIME 25.6 SECONDS (20.0-32.5); INTERNATIONAL NORMALIZED RATIO 1.1 RATIO (0.7-1.3); PROTHROMBIN TIME 10.8 SECONDS (9.0-12.5)
[2021-02-01 23:40] LABS: BILIRUBIN, TOTAL 1.1 mg/dL (0.0-1.4)
[2021-02-01 23:41] LABS: D-DIMER 1.19 mg/L (0.19-0.60)
--- NOTE | 2021-02-02 00:30 | NUR ---
RESTING QUIETLY AWAITING DISPO.
--- NOTE | 2021-02-02 01:19 | NUR ---
BREATHING APPEARS IMPROVED.
--- NOTE | 2021-02-02 01:40 | NUR ---
Admission Note Report Given to: NADER SIMMONS Transported by: X Wheelchair Stretcher Transported with: X Nurse Transporter X Patent IV X O2 X Bat Carrier Location: ICU X MS2
[2021-02-02 01:50] VITALS: BP 148/85
--- NOTE | 2021-02-02 01:50 | NUR ---
PT RECEIVED FROM ED TO ROOM 278. ARRIVES VIA WHEELCHAIR ACCOMPANIED BY SOMMER DOE. PT AMBULATORY TO BED. GAIT UNSTEADY. PT DENIES PAIN AT THIS TIME. ORIENTED TO UNIT, ROOM, CALL THAYER, LIGHTS, TV. ICE WATER PROVIDED. CALL THAYER WITHIN REACH. AGREES TO CALL PRN.
--- NOTE | 2021-02-02 02:02 | NUR ---
FLUTE TEACHER REPORT TRIJEMINAlexandre PVC'S.P TREMAINS ASYMTOMATIC. WILL CONTINUE TO MONITOR.
--- NOTE | 2021-02-02 02:31 | NUR ---
PHYSICAL ASSESMENT COMPLETE. PT STATING AT 99 % O2 WITH LABORED BREATHING. PT HAS STRONG PULSES BUT HAS ANKLE SWELLING BILATERALLY. SCHEDULED MEDICATIONS AND PRN MEDICATION ADMINISTERED, SEE E-MAR. PT DENIES ANY NEEDS AT THIS TIME. PLAN OF CARE REVIEWED, PT DENIES QUESTIONS, VERBALIZES UNDERSTANDING. ITEMS WITHIN REACH, BED LOCKED IN LOW POSITION W/ BEDRAILS UP X2. CALL THAYER WITHIN REACH, AGREES TO CALL PRN.
[2021-02-02 04:00] VITALS: BP 150/86
--- NOTE | 2021-02-02 04:02 | NUR ---
PT RESTING IN BED. PT VOICES NO NEEDS OR COMPLAINTS AT THIS TIME. CALL LIGHT IN REACH, CONTINUE TO MONITOR.
--- NOTE | 2021-02-02 07:00 | NUR ---
RECIEVED REPORT FROM NADER SIMMONS
[2021-02-02 07:25] VITALS: BP 142/79
--- NOTE | 2021-02-02 07:48 | NUR ---
PT RESTING IN HIGH FOWLERS POSITION. PT IS A/O X3. ASSESSMENT AND VITALS COMPLETED.BP 142/79, HR 78, O2 99% ON 2L NC. RESPIRATIONS ARE SHALLOW. LUNG SOUNDS ARE CLEAR IN UPPERS WITH WHEEZING IN LOWER. HEART RHYTH IS NORMAL WITH TELE IN PLACE, SR WITH IVCD PER ER MONITORING. BOWEL SOUNDS ARE ACTIVE. RADIAL AND PEDAL PULSES ARE STRONG. #20G IN REJ, FLUSHED SITE APPEARS HEALTHY AND PATENT WITH VERY LITTLE BLOOD RETURN. SITE APPEARS HEALTHY AND PATENT. SKIN IS WARM AND INTACT. 2+ EDEMA NOTED IN BLE, MORE SO ON THE LEFT. PT COMPLAINS OF 6/10 BACK PAIN, TORADOL ADMINISTERED. PT DENIES OF ANY OTHER NEEDS AT THIS TIME ALL SAFETY PRECAUTIONS ARE IN PLACE WITH CALL LIGHT IN REACH. WILL CONTINUE TO MONITOR.
--- NOTE | 2021-02-02 08:46 | NUR ---
TORADOL ADMINISTERED FOR 8/ BACK PT. PT TOLERATED WELL. ATTEMPTED TO CHECK #20G LEJ FOR BLOOD RETURN, GOOD BLOOD RETURN NOTED. SITE REMAINS HEALTHY AND PATENT. PT DENIES OF ANY OTHER NEEDS AT THIS TIME. ALL SAFETY PRECAUTIONS ARE IN PLACE. WILL CONTINUE TO MONITOR.
--- NOTE | 2021-02-02 09:01 | NUR ---
PT REQUEST FOR BREATHING TREATMENT. RT CALLED .
--- NOTE | 2021-02-02 09:46 | NUR ---
REASSESSMENT OF PAIN RESULTING IN 03/20. RT AT BEDSIDE TO ADMINISTER TREATMENT.
[2021-02-02 10:43] LABS: URINE BILIRUBIN - DIPSTICK NEGATIVE (NEGATIVE); URINE BLOOD DIPSTICK NEGATIVE (NEGATIVE); URINE COLOR YELLOW; URINE GLUCOSE - DIPSTICK NEGATIVE (NEGATIVE); URINE KETONE NEGATIVE (NEGATIVE); URINE LEUK ESTERASE NEGATIVE (NEGATIVE); URINE PROTEIN - DIPSTICK NEGATIVE (NEG-TRACE); URINE UROBILINOGEN - DIPSTICK 0.2 E.U./dL (0.2)
[2021-02-02 10:49] VITALS: BP 146/83
[2021-02-02 10:49] LABS: URINE NITRITE - DIPSTICK NEGATIVE (Negative)
--- NOTE | 2021-02-02 11:54 | NUR ---
PT RESTINGNIN SEMI EDMONDSON POSITION EATING LUNCH. REPSIRATIONS ARE SHALLOW ON 2L NC. TROPONIN DRAW FROM #20G LE, SITE FLUSHED, REMAINS HEALTHY AND PATENT. PT DENIES OF ANY NEEDS AT THIS TIME. ALL SAFETY PRECAUTIONS ARE IN PLACE WITH CALL LIGHT IN REACH. WILL CONTINUE TO MONITOR.
[2021-02-02 15:05] VITALS: BP 130/72
--- NOTE | 2021-02-02 15:44 | NUR ---
PT COMPLAINS OF 8/10 BACK PAIN, TORADOL ADMINISTERED. RESPIRATIONS ARE LABORED, WHEEZING PRESENT. RT CALLED FOR BREATHING TREATMENT. TELE MONITORING IN PLACE. #20G LEJ REMAINS HEALTHY AND PATENT. PT DENIES OF ANY OTHER NEEDS OR DISCOMFORTS. ALL SAFTEY PRECAUTIONS ARE IN PLACE. WILL CONTINUE TO MONITOR.
--- NOTE | 2021-02-02 16:40 | NUR ---
RT AT BEDSIDE TO ADMINISTER BREATHING TREATMENT.
[2021-02-02 19:00] VITALS: BP 148/75
--- NOTE | 2021-02-02 19:56 | NUR ---
PHYSICAL ASSESMENT COMPLETE. PT CURRENTLY DENIES PAIN OR DISCOMFORT. SCHEDULED MEDICATIONS AND PRN MEDICATION ADMINISTERED, SEE E-MAR. PT DENIES ANY NEEDS AT THIS TIME. PLAN OF CARE REVIEWED, PT DENIES QUESTIONS, VERBALIZES UNDERSTANDING. ITEMS WITHIN REACH, BED LOCKED IN LOW POSITION W/ BEDRAILS UP X2. CALL THAYER WITHIN REACH, AGREES TO CALL PRN.
[2021-02-03] VITALS (7 sets, daily range): BP systolic 138–160; BP diastolic 77–90
--- NOTE | 2021-02-03 00:07 | NUR ---
PT HAS A TEMPORAL TEMPERATURE OF 102.2. PT STATES HE IS A LITTLE HOT. ADMINISTERED PO TYLENOL. WILL RECHECK TEMPERATURE AND MONITURE CLOSELY.
--- NOTE | 2021-02-03 00:13 | NUR ---
PT LAYING IN BED WITH EYES CLOSED, APPEARS TO BE SLEEPING, APPEARS COMFORTABLE AND IN NO DISTRESS. RESPIRATIONS REGULAR AND UNLABORED. ITEMS REMAIN WITHIN REACH, CALL THAYER REMAINS WITHIN REACH. BED REMAINS LOCKED AND IN LOW POSITION WITH BEDRAILS UP X2. WILL CONTINUE TO MONITOR.
--- NOTE | 2021-02-03 04:14 | NUR ---
PT RESTING IN BED, NO SIGNS OF DISTRESS NOTED, RESP EVEN AND UNLABORED. PT VOICES NO NEEDS OR COMPLAINTS AT THIS TIME. CALL LIGHT IN REACH, CONTINUE TO MONITOR.
[2021-02-03 05:42] LABS: HEMATOCRIT 31.6 % (37.0-47.0); HEMOGLOBIN 9.5 g/dl (12.0-16.0); MEAN CELL VOLUME 99.1 fL CALC (80.0-100.0); MEAN CORPUSCULAR HGB 29.8 pG CALC (26.0-32.0); MEAN CORPUSCULAR HGB CONC 30.1 g/dL CAL (32.0-36.0); RED BLOOD COUNT 3.19 mill/uL (4.20-5.60); RED CELL DISTRI WIDTH 13.3 % (11.5-15.5)
[2021-02-03 06:08] LABS: CREATININE 2.4 mg/dL (0.5-1.0); MAGNESIUM 1.9 mg/dL (1.6-2.3); POTASSIUM 4.5 mmol/l (3.5-5.1)
--- NOTE | 2021-02-03 07:30 | NUR ---
PATIENT RESTING IN BED AT THIS TIME. SIDERAILS UP X2 CALL LIGHT WITHIN REACH. BRUSH CUTTER DONE SEE INTERVENTIONS. LUNG SOUNDS ARE DIMINISHED AND EXPIRATORY WHEEZING NOTED. PATIENT DOES EXHIBIT 2+ PITTING EDEMA ON BILATERAL LOWER LEGS AND ANKLES. PATIENT STATES HER PAIN LEVEL HAS COME DOWN FROM BEING PREVIOUSLY MEDICATED ON PREVIOUS SHIFT. PATIENT STATES HER PAIN LEVEL IS ONLY A 2. TELE ON AND BEING MONITORED BY ED.
--- NOTE | 2021-02-03 11:44 | NUR ---
PATIENT IN BED AT THIS TIME AGRICULTURE SCIENCE TEACHER PREFORMING TEST PATIENT DENIES ANY NEEDS SIDERAILS ARE UP CALL LIGHT WITHIN REACH.
--- NOTE | 2021-02-03 12:46 | NUR ---
EDUCATION GIVEN ON THE USE OF AN INCENTIVE SPIROMETER AT THIS TIME. PATIENT VERBALIZES AND DEMONSTRATES PROPER USE.
--- NOTE | 2021-02-03 15:53 | NUR ---
PATIENT RESTING IN BED AT THIS TIME AND WATCHING TV. PATIENT DENEIS ANY NEEDS. PATIENT RATES HER PAIN AT A 2 CURRENTLY AND IS DULL FEELING. PATIENT BREATH SOUNDS ARE CLEAR AT THIS TIME. PATIENT SIDERAILS ARE UP X 2 CALL LIGHT WITHIN REACH.
[2021-02-04 03:35] VITALS: BP 167/92
[2021-02-04 06:21] LABS: HEMOGLOBIN 9.9 g/dl (12.0-16.0); MEAN CELL VOLUME 100.3 fL CALC (80.0-100.0); MEAN CORPUSCULAR HGB 30.1 pG CALC (26.0-32.0); RED BLOOD COUNT 3.29 mill/uL (4.20-5.60); RED CELL DISTRI WIDTH 13.2 % (11.5-15.5)
[2021-02-04 06:39] LABS: CREATININE 2.4 mg/dL (0.5-1.0); MAGNESIUM 1.9 mg/dL (1.6-2.3); POTASSIUM 4.5 mmol/l (3.5-5.1)
[2021-02-04 07:05] VITALS: BP 152/88
--- NOTE | 2021-02-04 07:05 | NUR ---
PATIENT LAYING IN BED AT THIS TIME. LINT CLEANER DONE AT THIS TIME SEE INTERVENTIONS. LUNG SOUNDS ARE DIMINISHED IN LOWER BASIS, RESPIRATIONS ARE SHALLOW AND EVEN. PATIENT STATED PAIN IS A 2 ON PAIN SCALE OF 0-10. PATIENT HAS EDEMA 2-2+. IJ IN LEFT NECK IN PLACE AT THIS TIME AND FLUSHED WITHOUT ISSUE. SIDERAILS ARE UP X 2 CALL LIGHT WIHTIN REACH.
[2021-02-04 10:42] VITALS: BP 168/91
--- NOTE | 2021-02-04 11:53 | NUR ---
YOVANI SITTING AT BED SIDE EATING LUNCH. PATIENT STATES HER PAIN LEVEL IS ONLY A "2" A THIS TIME AND DENIES ANY OTHER NEEDS. CALL LIGHT AND PERSONAL ITEMS ARE WITHIN REACH. SIDERAILS ARE UP X 2
[2021-02-04 15:04] VITALS: BP 161/85
--- NOTE | 2021-02-04 15:28 | NUR ---
PATIENT RESTING IN BED AT THIS TIME DENIES ANY NEEDS CALL LIGHT AND PERSONAL ITEMS WITHIN REACH SIDERAILS UP X 2
--- NOTE | 2021-02-04 19:35 | NUR ---
PT ASSESSMENT COMPLETED AT THIS TIME. C/O SOB UPON EXERTION. PT IS WEARING NC OXYGEN. V/S ASSESSED ALSO AT THIS TIME. NO S/O DISTRESS NOTED. POC AND MEDICATION SCHEDULE DISCUSSED AT THIS TIME.
--- NOTE | 2021-02-04 21:58 | NUR ---
PT MEDICATED ORDERS PROVIDE AND FOR PAIN REPORTED "EVERYWHERE" 7/10 ON PAIN SCALE.
[2021-02-05] VITALS (7 sets, daily range): BP systolic 152–174; BP diastolic 52–91
--- NOTE | 2021-02-05 00:55 | NUR ---
PT MEDICATED FOR ELEVATED BP. PT WAS ASLEEP I ENTERED THE ROOM. NO S/O DISTRESS OR PAIN. DENIED ANY OTHER NEEDS AT THIS TIME.
--- NOTE | 2021-02-05 04:51 | NUR ---
BLOOD DRAWN FOR LABS AND SITE FLUSHED WITH NS. PT REPORTS SLEEPING VERY WELL AND QUICKLY RETURNED TO SLEEP PRIOR TO MY LEAVING THE ROOM. TV IS ON AND LIGHTS TURNED BACK DOWN FOR PT COMFORT. CALL LIGHT AND BSC ARE AT SIDE.
[2021-02-05 04:57] LABS: HEMOGLOBIN 10.1 g/dl (12.0-16.0); IMMATURE GRANULOCYTES 1.1 % (0.0-5.0); MEAN CELL VOLUME 99.7 fL CALC (80.0-100.0); MEAN CORPUSCULAR HGB 30.5 pG CALC (26.0-32.0); MEAN CORPUSCULAR HGB CONC 30.6 g/dL CAL (32.0-36.0); NEUT# 17.3 thou/uL (2.00-7.15); RED BLOOD COUNT 3.31 mill/uL (4.20-5.60); RED CELL DISTRI WIDTH 13.2 % (11.5-15.5)
[2021-02-05 05:08] LABS: ALBUMIN 3.4 g/dL (3.2-5.0); CREATININE 2.2 mg/dL (0.5-1.0); POTASSIUM 4.6 mmol/l (3.5-5.1); TOTAL PROTEIN 6.1 g/dL (6.3-8.2)
[2021-02-05 05:11] LABS: BILIRUBIN, TOTAL 0.5 mg/dL (0.0-1.4)
--- NOTE | 2021-02-05 07:00 | NUR ---
PATIENT RESTING IN BED AT THIS TIME GEOTHERMAL PRODUCTION MANAGER DONE AT THIS TIME. LUNG SOUNDS REMAIN DIMINISHED BREATH SOUND ARE NON LABORED. PATIENT DENIES ANY PAIN AT THIS TIME. O2 REMAINS ON AT 2 LITERS AND SPO2 IS 94% TELE REMAINS ON PATIENT AND BEING MONITORED BY ED. SIDERAILS ARE UP X 2 CALL LIGHT AND PERSONAL ITEMS WITHIN REACH.
--- NOTE | 2021-02-05 12:05 | NUR ---
PATIENT RESTING IN BED AT THIS TIME. PATIENT STATED SHE FEELS A LITTLE SHORT OF BREATH AND VITAL SIGNS TAKEN T. 97.3 REP. 20 BP 151/79 P. 56 SPOE 93% ON 2 LITERS. CALL LIGHT AND PERSONAL ITEMS WITHIN REACH AND PATIENT EATING LUNCH.
--- NOTE | 2021-02-05 16:00 | NUR ---
PATIENT RESTING IN BED DENIES ANY NEEDS AT THIS TIME. SIDERAILS UP X 2 CALL LIGHT AND PERSONAL ITEMS WITHIN REACH.
--- NOTE | 2021-02-05 19:00 | NUR ---
REPORT RECEIVED FROM [place] RED RN, CARE OF PT ASSUMED AT THIS TIME.
--- NOTE | 2021-02-05 20:35 | NUR ---
PT RESTING IN BED, APPEARS COMFORTABLE AND IN NO APPARENT DISTRESS. RESPIRATIONS REGULAR AND UNLABORED. PHYSICAL ASSESMENT COMPLETED. PT REORTS NO BM X 2 DAYS. MOM ADMINISTERED, SEE E-MAR. WARM PRUNE JUICE PROVIDED. SCHEDULED MEDICATIONS ADMINISTERED, SEE E-MAR. PRN ANALGESIC ADMINISTERED PER PT'S REQUEST FOR GENERALIZED ACHES, SEE E-MAR. PLAN OF CARE REVIEWED. PT VERBALIZES UNDERSTANDING. DIET COLA AND ICE PROVIDED PER PTS REQUEST, PT DENIES FURTHER NEEDS AT THIS TIME. CALL THAYER WITHIN REACH, AGREES TO CALL PRN.
--- NOTE | 2021-02-06 02:00 | NUR ---
PT LAYING IN BED WITH EYES CLOSED, RESPIRATIONS REGULAR AND UNLABORED, NO APPARENT DISTRESS. APPEARS TO BE SLEEPING COMFORTABLY. CALL THAYER REMAINS WITHIN REACH.
--- NOTE | 2021-02-06 03:58 | NUR ---
PT REQUESTS NEBULIZER TXRONALDO RT MADE AWARE.
[2021-02-06 04:00] VITALS: BP 158/86
--- NOTE | 2021-02-06 05:00 | NUR ---
NO RESULTS FROM MOM AND PRUNE JUICE. AM LABS DRAWN FROM - SITE. WEIGHT ON STAND UP SCALE IS 85 KG, UNCHANGED FROM YESTERDAY. PT DENIES NEEDS AT THIS TIME. CALL THAYER WITHIN REACH, AGREES TO CALL PRN.
--- NOTE | 2021-02-06 05:22 | NUR ---
REPORTED BY Terry MONTESINOS CNA, PT UP TO BATHROOM, LARGE SOLID BM NOTED, THEN PT BACK TO BED.
[2021-02-06 05:48] LABS: HEMATOCRIT 34.6 % (37.0-47.0); HEMOGLOBIN 10.8 g/dl (12.0-16.0); MEAN CORPUSCULAR HGB 30.6 pG CALC (26.0-32.0); MEAN CORPUSCULAR HGB CONC 31.2 g/dL CAL (32.0-36.0); NEUT# 15.81 thou/uL (2.00-7.15); RED BLOOD COUNT 3.53 mill/uL (4.20-5.60)
[2021-02-06 06:14] LABS: ALBUMIN 3.4 g/dL (3.2-5.0); BILIRUBIN, TOTAL 0.5 mg/dL (0.0-1.4); CREATININE 2.1 mg/dL (0.5-1.0); POTASSIUM 4.4 mmol/l (3.5-5.1); TOTAL PROTEIN 6.2 g/dL (6.3-8.2)
--- NOTE | 2021-02-06 07:00 | NUR ---
PT REPORT RECEIVED FROM NIGHT NURSETAL
[2021-02-06 07:37] VITALS: BP 179/83
--- NOTE | 2021-02-06 08:00 | NUR ---
PT WAS FOUND RESTING IN BED EATING BREAKFAST;PT IS A&O X3;VS AND ASSESSMENT WERE COMPLETED;PT HAS NO REPORTS OF PAIN AT THIS TIME;HEART SOUNDS WERE REGULAR IN RATE AND RHYTHM;LUNG SOUNDS ARE CLEAR AND DIMINSHED IN THE LOWER LOBES;RESPIRATIONS ARE EVEN AND UNLABORED ON 2L O2 VIA NC;PT HAS SOME EDEMA PRESENT IN THE LOWER EXTREMETIES BILATERALLY;TELE IS IN PLACE;#20G IV IN LEJ IS SL, PATENT, AND FREE OF COMPLICATIONS AT THIS TIME;TELE IS IN PLACE;SAFETY PRECAUTIONS IN PLACE;CALL LIGHT WITHIN REACH;WILL CONTINUE TO MONITOR.
--- NOTE | 2021-02-06 08:40 | NUR ---
CALL PLACED TO OFFICE, SPOKE WITH RAH.
--- NOTE | 2021-02-06 09:21 | NUR ---
AND TANMAY ESCOBAR AT BEDSIDE DISCUSSING POC WITH PT
[2021-02-06 10:50] VITALS: BP 168/75
--- NOTE | 2021-02-06 12:00 | NUR ---
PT WAS FOUND RESTING IN BED;PT HAS NO REPORTS OF PAIN AT THIS TIME;O2 @2L VIA NC IS IN PLACE;TELE IN PLACE;#20G IV IN LEJ IS SL, PATENT AND FREE OF COMPLICATIONS;SAFETY PRECAUTIONS IN PLACE;CALL LIGHT WITHIN REACH;BED IN LOWEST POSITION;WILL CONTINUE TO MONITOR.
[2021-02-06 15:00] VITALS: BP 155/68
--- NOTE | 2021-02-06 16:00 | NUR ---
PT WAS FOUND RESTING IN BED;PT HAS NO REPORTS OF PAIN AT THIS TIME;O2 @2L VIA NC IS IN PLACE;TELE IS IN PLACE;#20G IV IN LEJ IS SL, PATENT AND FREE OF COMPLICATIONS;SAFETY PRECAUTIONS IN PLACE;CALL LIGHT WITHIN REACH;BED IN LOWEST POSITION;WILL CONTINUE TO MONITOR.
--- NOTE | 2021-02-06 16:28 | NUR ---
ERICH,ANRP AT BEDSIDE
[2021-02-06 19:00] VITALS: BP 165/82
--- NOTE | 2021-02-06 20:00 | NUR ---
RECEIVED REPORT FROM NURSE FARHANA, PATIENT CURREBTLY RESTING IN BED WATCHING TV, ALERT ORIENTED, WITH SALINE LOCK ON LEFT EJ PATENT FLUSHES WELL, REMAINS ON TELE SB 55, HOOKED TO O2 @ 2LPM VIA NC POX 99%, EXERTIONAL DYSPNEA NOTED, C/O GENERAIZED BODY PAIN WILL MEDICATE, LBM 02/06, REMAINS ON FLUID RESTRICTION 1500CC COMPLIAT, CALL LIGHT AT REACH.
--- NOTE | 2021-02-06 20:10 | NUR ---
NOTIFIED SKIN DIVING TEACHER ABOUT PATIENT REQUEST FOR A SLEEP AID WITH ORDERS MADE REQUEST SENT TO [facility].
[2021-02-07] VITALS (7 sets, daily range): BP systolic 148–160; BP diastolic 73–84
--- NOTE | 2021-02-07 01:11 | NUR ---
PATIENT RESTING WITH EYES CLOSED, BREATHING SHALLOW UNLABORED REMAINS ON O2 @ 2LPM CALL LIGHT AT REACH.
--- NOTE | 2021-02-07 03:53 | NUR ---
PATIENT SITTING IN BED, REQUESTED ICE CHIPS, I&0 RECORDEDED, BLOOD DRAWN FROM LEFT EJ AND FLUSHED WITH SALINE, PATIENT RESTING IN BED, EYES CALL LIGHT AT REACH.
[2021-02-07 05:45] LABS: HEMATOCRIT 36.8 % (37.0-47.0); HEMOGLOBIN 11.2 g/dl (12.0-16.0); IMMATURE GRANULOCYTES 0.9 % (0.0-5.0); MEAN CELL VOLUME 98.4 fL CALC (80.0-100.0); MEAN CORPUSCULAR HGB 29.9 pG CALC (26.0-32.0); MEAN CORPUSCULAR HGB CONC 30.4 g/dL CAL (32.0-36.0); NEUT# 13.69 thou/uL (2.00-7.15); RED BLOOD COUNT 3.74 mill/uL (4.20-5.60)
[2021-02-07 06:05] LABS: ALBUMIN 3.2 g/dL (3.2-5.0); BILIRUBIN, TOTAL 0.5 mg/dL (0.0-1.4); CREATININE 2.3 mg/dL (0.5-1.0); POTASSIUM 4.5 mmol/l (3.5-5.1); TOTAL PROTEIN 5.6 g/dL (6.3-8.2)
--- NOTE | 2021-02-07 07:00 | NUR ---
PT REPORT RECEIVED FROM NIGHT NURSERAMAN
--- NOTE | 2021-02-07 08:00 | NUR ---
PT WAS FOUND RESTING IN BED ON HER RIGHT SIDE;PT IS A&O X3;VS AND ASSESSMENT WERE COMPLETED;HEART SOUNDS ARE REGULAR IN RATE AND RHYTHM;LUMG SOUNDS ARE CLEAR AND DIMINISHED IN LOWER LOBES;RESPIRATIONS ARE EVEN AND UNLABORED ON O2 @2L VIA NC;TELE IS IN PLACE;#20G IN LEJ IS SL, PATENT AND FREE OF COMPLICATIONS;SAFETY PRECAUTIONS IN PLACE;CALL LIGHT IS WITHIN REACH;BED IN LOWEST POSITION;WILL CONTINUE TO MONITOR.
--- NOTE | 2021-02-07 12:00 | NUR ---
PT WAS FOUND RESTING IN BED EATING LUNCH;PT HAS NO REPORTS OF PAIN AT THIS TIME;TELE IS IN PLACE;O2 @2L VIA NC IS IN PLACE;#20G IV IN LEJ IS SL, PATENT AND FREE OF COMPLICATIONS;SAFETY PRECAUTIONS IN PLACE;CALL LIGHT WITHIN REACH;BED IN LOWEST POSITION;WILL CONTINUE TO MONITOR.
--- NOTE | 2021-02-07 16:00 | NUR ---
PT WAS FOUND RESTING IN BED;PT HAS NO REPORTS OF PAIN AT THIS TIME;TELE IS IN PLACE;O2 @2L VIA NC IS IN PLACE;#20G IV IN LEJ IS SL, PATENT AND FREE OF COMPLICATIONS;SAFETY PRECAUTIONS IN PLACE;CALL LIGHT WITHIN REACH;BED IN LOWEST POSITION;WILL CONTINUE TO MONITOR.
--- NOTE | 2021-02-07 21:57 | NUR ---
PT UP IN BED WITH EYES OPEN AND ABLE TO MAKE NEEDS KNOWN. SKIN WARM TO TOUCH. MEDS GIVEN AND TOLERATED WELL. TOLERATED NEB TREATMENT WELL. COMPLAINED OF GENERAL PAIN AND WAS MEDICATED WITH MORPHINE ORDERED. LOVENOX THERAPY IN PLACE AND NO S/S OF BLEEDING OR HEMORRHAGE. IV SITE INTACT AND NO S/S OF INFECTION/INFILTRATION. BLOOD SUGAR 285 AND SSC COVERAGE GIVEN AND ORDERED. REQUESTED SONATA FOR INSOMNIA AND GIVEN BY MOUTH AND WILL CONTIBUE TO OBSERVE
[2021-02-08] VITALS (9 sets, daily range): BP systolic 115–188; BP diastolic 73–91
[2021-02-08 06:07] LABS: HEMATOCRIT 35.6 % (37.0-47.0); HEMOGLOBIN 11.2 g/dl (12.0-16.0); MEAN CELL VOLUME 97.3 fL CALC (80.0-100.0); MEAN CORPUSCULAR HGB 30.6 pG CALC (26.0-32.0); MEAN CORPUSCULAR HGB CONC 31.5 g/dL CAL (32.0-36.0); RED BLOOD COUNT 3.66 mill/uL (4.20-5.60); RED CELL DISTRI WIDTH 13.1 % (11.5-15.5)
--- NOTE | 2021-02-08 06:51 | NUR ---
PT SITTING UP IN BED WITH EYES OPENAND ABLE TO MAKE NEEDS KNOWN.SKIN WARMTO TOUCH. IV LASIX GIVEN THIS AM AND TOLERATED WELL. RESPIRATION ARE EVEN AND NONLABORED. HOB ELEVATED AND CALL LIGHT WITHIN REACH
--- NOTE | 2021-02-08 07:10 | NUR ---
REPORT RECEIVED FROM NADER CALVERT
--- NOTE | 2021-02-08 07:20 | NUR ---
PT RESTING IN SEMI FOWLERS POSITION,A&O X3;VS OBTAINED AND ASSESSMENT COMPLETED;PT DENIES ANY CURRENT PAIN OR DISCOMFORTS,PAIN SCALE AND REPORTING EDUCATED;RESPIRATIONS SHALLOW ON O2 @ 2L VIA NC,CLEAR LUNG SOUNDS;ABDOMEN DISTENDED/SOFT ON PALPATION AND ACTIVE IN ALL 4 QUADRANTS;STRONG PEDAL PULSES;SKIN INTACT;TELE MONITORING IN PLACE;#20G TO LEJ FLUSHED AND PATENT,SITE APPEARS HEALTHY;ACCUCHECK 247, PT COVERED WITH SLIDING SCALE INSULIN PER ORDER;PT DENIES ANY ADDITIONAL NEEDS AT THIS TIME;ENCOURAGED TO CALL FOR ASSISTANCE IF NEEDED;FALL PRECAUTIONS IN PLACE WITH BED IN THE LOWEST POSITION AND CALL LIGHT IN REACH;WILL CONTINUE TO MONITOR
--- NOTE | 2021-02-08 07:54 | NUR ---
LAB AT BEDSIDE
--- NOTE | 2021-02-08 09:04 | NUR ---
BP RE-CHECK 140/77 HR 54
--- NOTE | 2021-02-08 09:15 | NUR ---
PT REPORTS RIGHT ASIF PAIN RATING 7/10 ON THE PAIN SCALE AND REQUESTS PRN PAIN MEDICATION, PT MEDICATED WITH PRN MORPHINE 1MG SLOW IVP BY NADER KENDRICK AT THIS TIME;WILL CONTINUE TO MONITOR FOR EFFECTIVENESS
[2021-02-08 09:59] LABS: ALBUMIN 3.1 g/dL (3.2-5.0); POTASSIUM 4.7 mmol/l (3.5-5.1)
--- NOTE | 2021-02-08 11:15 | NUR ---
PT RESTING IN SEMI FOWLERS POSITION;RESPIRATIONS REMAIN EVEN AND UNLABORED ON O2 @ 2L VIA NC;PT DENIES ANY CURRENT PAIN OR DISCOMFORTS;TELE MONITORING IN PLACE;IV SITE PATENT;ACCUCHECK 295 AND PT COVERED WITH SLIDING SCALE INSULIN PER ORDER;BP RE-CHECK 160/73 HR 53;PT DENIES ANY ADDITIONAL NEEDS AND IS ENCOURAGED TO CALL FOR ASSISTANCE IF NEEDED;FALL PRECAUTIONS IN PLACE WITH CALL LIGHT IN REACH;WILL CONTINUE TO MONITOR
--- NOTE | 2021-02-08 11:55 | NUR ---
AT BEDSIDE DISCUSSING POC
--- NOTE | 2021-02-08 12:29 | NUR ---
RT AT BEDSIDE ADMINISTERING BREATHING TX.
--- NOTE | 2021-02-08 16:00 | NUR ---
PT RESTING IN SEMI FOWLERS POSITION;RESPIRATIONS EVEN AND UNLABORED ON O2 @ 2L VIA NC;PT DENIES ANY CURRENT PAIN OR NEEDS;TELE MONITORING IN PLACE;IV SITE PATENT TO LEJ;PT ENCOURAGED TO CALL FOR ASSISTANCE IF NEEDED;CALL LIGHT IN REACH;WILL CONTINUE TO MONITOR
--- NOTE | 2021-02-08 16:40 | NUR ---
PT BP 174/87 HR 54, PT MEDICATED WITH PRN CLODINE 0.2MG PO AT THIS TIME;WILL CONTINUE TO MONITOR FOR EFFECTIVENESS
[2021-02-09 00:35] VITALS: BP 156/83
--- NOTE | 2021-02-09 01:09 | NUR ---
LATE ENTRY FOR 02/08/21 @ 2100 PT IN BED RESTING QUIETLY. IV SITE TO LEJ STARTED LEAKING UPON FLUSH OF SITE. ATTEMPTED TO START A NEW PERIPHERAL LINE WITHOUT SUCCESS. ER NURSE NOTIFIED OF ASSIATNCE NEEDED. PENDING ER NURSE ARRIVAL TO FLOOR AT THIS TIME. BREATHING EVEN AND UNLABORED. NO COMPLAINTS VOICED. WILL MONITOR.
--- NOTE | 2021-02-09 01:11 | NUR ---
PT RESTING QUIETLY IN BED, NO COMPLAINTS VOICED AT THIS TIME. ER STAFF REPORTED TO FLOOR TO ASSIST IN NEW PLACEMENT OF IV SITE. SITE ATTEMPTED TO REJ WITHOUT SUCCESS. ER NURSE WAS ABLE TO START A NEW SITE TO [facility], FLUSHES EASILY. PT IS REFUSING BLOOD DRAW AND IS REQUESTING BLOOD DRAW FROM [facility] SITE. INSTRUCTED PT ON THE RISK OF LOOSING SITE IF BLOOD IS DRAWN FROM SITE, PT VERBALIZED SHE DOESN'T CARE SHE IS NOT GOING TO ALLOW LAB TO STICK HER AGAIN. WILL REASSESS SITUATION WHEN LAB COMES TO FLOOR FOR MORNING DRAW. BED IN LOWEST POSITION, CALL LIGHT WITHIN REACH. WILL CONTINUE TO MONITOR.
[2021-02-09 04:00] VITALS: BP 143/71
--- NOTE | 2021-02-09 04:04 | NUR ---
PT IS REFUSING TO HAVE LABS DRAWN THIS AM. UNABLE TO OBTAIN VIA LEJ AND ATTEMPTED PHLEBOTOMY TO BOTH R HAND AND L HAND WITHOUT SUCCESS. ADVISED PT ON THE IMPORTANCE OF ALLOWING LAB EMPLOYEE TO DRAW BLOOD TO WHICH PT REFUSED AGAIN. WILL MONITOR.
--- NOTE | 2021-02-09 06:55 | NUR ---
REPORT RECEIVED FROM ANNIE KULKARNI.
--- NOTE | 2021-02-09 06:57 | NUR ---
PT RESTING COMFORTABLY IN BED. NAD. VSS.HOT ROLL LAMINATOR TO MONITOR.
[2021-02-09 07:45] VITALS: BP 158/70
--- NOTE | 2021-02-09 08:15 | NUR ---
PT RESTING IN SEMI FOWLERS POSITION,A&O X3;VS OBTAINED AND ASSESSMENT COMPLETED;PT REPORTS NECK PAIN RATING 7/10 ON THE PAIN SCALE AND REQUESTS PRN PAIN MEDICATION;PT MEDICATED WITH PRN MORPHINE 1MG SLOW IVP;RESPIRATIONS EVEN AND UNLABORED ON O2 @ 2L VIA NC, CLEAR LUNG SOUNDS;ABDOMEN DISTENDED/SOFT ON PALPATION AND ACTIVE IN ALL 4 QUADRANTS;STRONG PEDAL PULSES;SKIN INTACT;TELE MONITORING IN PLACE;#20G TO LEJ FLUSHED AND PATENT,SITE APPEARS HEALTHY;ACCUCHECK 209,PT COVERED WITH SLIDING SCALE INSULIN PER ORDER;PT DENIES ANY ADDITIONAL NEEDS AND IS ENCOURAGED TO CALL FOR ASSISTANCE IF NEEDED;FALL PRECAUTIONS IN PLACE WITH BED IN THE LOWEST POSITION AND CALL LIGHT IN REACH;WILL CONTINUE TO MONITOR
--- NOTE | 2021-02-09 08:16 | NUR ---
LAB AT BEDSIDE
[2021-02-09 08:25] LABS: HEMATOCRIT 38.6 % (37.0-47.0); HEMOGLOBIN 11.8 g/dl (12.0-16.0); MEAN CELL VOLUME 97.7 fL CALC (80.0-100.0); MEAN CORPUSCULAR HGB 29.9 pG CALC (26.0-32.0); MEAN CORPUSCULAR HGB CONC 30.6 g/dL CAL (32.0-36.0); RED BLOOD COUNT 3.95 mill/uL (4.20-5.60); RED CELL DISTRI WIDTH 13.1 % (11.5-15.5)
[2021-02-09 09:09] LABS: ALBUMIN 3.3 g/dL (3.2-5.0); CREATININE 1.8 mg/dL (0.5-1.0); POTASSIUM 4.6 mmol/l (3.5-5.1)
[2021-02-09 10:30] VITALS: BP 151/70
--- NOTE | 2021-02-09 11:35 | NUR ---
PT RESTING IN SEMI FOWLERS POSITION TALKING ON THE PHONE WITH FAMILY;RESPIRATIONS EVEN AND UNLABORED ON O2 @ 2L VIA NC;PT DENIES ANY CURRENT PAIN OR DISCOMFORTS;TELE MONITORING IN PLACE;IV SITE TO [facility] REMAINS PATENT;ACCUCHECK 271, PT COVERED WITH SLIDING SCALE INSULIN PER ORDER;PT DENIES ANY ADDITIONAL NEEDS AND IS ENCOURAGED TO CALL FOR ASSISTANCE IF NEEDED;CALL LIGHT IN REACH;WILL CONTINUE TO MONITOR
--- NOTE | 2021-02-09 11:48 | NUR ---
NUTRITION CONSULT OBTAINED AT THIS TIME BY DIETITIAN.
--- NOTE | 2021-02-09 12:17 | NUR ---
AT BEDSIDE DISCUSSING POC.
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
[2021-02-09 15:00] VITALS: BP 151/65
--- NOTE | 2021-02-09 16:20 | NUR ---
PT RESTING IN SEMI FOWLERS POSITION;RESPIRATIONS EVEN AND UNLABORED ON O2 @ 2L VIA NC;PT DENIES ANY CURRENT PAIN OR NEEDS;IV SITE TO [facility] PATENT;TELE MONITORING IN PLACE;ENCOURAGED TO CALL FOR ASSISTANCE IF NEEDED;CALL LIGHT IN REACH;WILL CONTINUE TO MONITOR
[2021-02-09 19:00] VITALS: BP 138/80
--- NOTE | 2021-02-09 20:17 | NUR ---
PT SITING UP IN BED UPON ASSESSMENT. PT C/O PAIN IN LEFT CHEST WALL, DENIES PAIN IS RELATED TO CARDIAC. BREATHING EVEN AND UNLABORED, SOB WITH EXERTION. O2 CONTINUES @ 2L VIA NC. INSTRUCTED PT ON THE IMPORTANCE OF A LOW SODIUM DIET TO DCREASE RISK FOR CARDIAC COMPLICATIONS. PT VERBALIZED UNDERSTANDING TO INSTRUCTION GIVEN. WILL MONITOR.
--- NOTE | 2021-02-09 21:30 | NUR ---
MEDICATIONS ADMINSTERED PER ORDER. PT TOLERATED WELL. IV SITE TO LEJ REMAINS, FLUSHES EASILY. NO S/S OF INFECTION OR INFILTRATION NOTED AT THIS TIME. WILL MONITOR.
--- NOTE | 2021-02-09 22:16 | NUR ---
PT REQUESTED A HS SNACK, PROVIDED PT WITH A HALF OF A TURKEY SANDWICH WITH COLIN AND A CUP OF ORANGE JELLO. PT INDICATED THAT WAS SUFFICIENT FOR HS SNACK. WILL MONITOR.
[2021-02-10 00:03] VITALS: BP 160/76
--- NOTE | 2021-02-10 00:16 | NUR ---
PT RESTING QUIETLY IN BED. NO COMPLAINTS VOICED AT THIS TIME. BREATHING EVEN AND UNLABORED. WILL MONITOR
[2021-02-10 04:15] VITALS: BP 154/77
--- NOTE | 2021-02-10 04:20 | NUR ---
PT RESTING COMFORTBLY WITH EYES CLOSED AT THIS TIME. BREATHING EVEN AND UNLABORED. O2 REMAINS 2L VIA NC. VS STABLE. NO COMPLAINTS VOICED. DENIES PAIN. WILL MONITOR
[2021-02-10 07:33] LABS: ALBUMIN 3.3 g/dL (3.2-5.0); CREATININE 2.1 mg/dL (0.5-1.0); POTASSIUM 5.1 mmol/l (3.5-5.1)
[2021-02-10 07:35] VITALS: BP 166/81
--- NOTE | 2021-02-10 08:30 | NUR ---
PT RESTING IN THE BED, AXOX3. C/O PAIN IN THE CHEST AREA. MED PER ORDER. EDUCATED ON SWITCH FROM IV TO PO MEDS. IS ABLE TO USE THE ISSU, UP TO 1500. NO RESP DISTRESS NOTED AT THIS TIME. REPOSITIONED FOR COMFORT, SIDE RAILS UP CALL LIGHT IN REACH BED LOCKED IN LOW POSITION, ALL SAFTY MEASURES IN PLACE. WILL CONTINUE TO MONIOTR THE PATIENT.
--- NOTE | 2021-02-10 10:11 | NUR ---
PT RESTING IN THE BED, STATES "MUCH MORE RELAXED" , NO DISTRESS NOTED. WILL CONTINUE TO MONIOTR THE PATIENT.
[2021-02-10 10:24] VITALS: BP 153/62
--- NOTE | 2021-02-10 12:00 | NUR ---
INSTRUCTED PT SHE WILL BE DISCHARGED SOMETIME TODAY, AFTER THE LIFE VEST IS FITTED.
[2021-02-10] MEDS ORDERED: LASIX 40 MG TAB40 MG PO (12:09)
[2021-02-10] MEDS ORDERED: MEDDOSEPAK PO (12:10)
[2021-02-10] MEDS ORDERED: LORTAB5 PO (12:11)
--- NOTE | 2021-02-10 17:01 | NUR ---
INFORMED PT , THE VEST WILL BE HERE AT 1800.
--- NOTE | 2021-02-10 18:30 | NUR ---
INFORMED PATIENT [facility] CALLED AND STATED "ON THE WAY".
[2021-02-10 19:55] VITALS: BP 152/80
--- NOTE | 2021-02-10 20:00 | NUR ---
Discharge instructions given. Patient verbalizes understanding of same. Discharged in stable condition via Wheelchair to Home with staff. All belongings sent with pt.
--- NOTE | 2021-02-10 20:11 | NUR ---
LIFE VEST ARRIVED TO FIT PT WITH VEST @ 185. LIFE VEST FITTING COMPLETED AT 1929. THIS NURSE DISCONNECTED PT FROM TELE AND REMOVED IV SITE TO LEJ @ 194. [facility] CALLED FOR TRANSPORT HOME WITH HOME HEALTH AT 1954. PT PHYSICALLY LEFT THE FLOOR WITH ALL BELONGINGS AT 1999 ESCORTED BY STAFF TO THE ER ENTRANCE.
[2021-02-11] MEDS ORDERED: HYDROCO/APAP1 TA9 PO (12:29)
== END 2021-02-10 20:00 | DRG 291 ==
LOC: ED 22:03 → ED-I 02-02 00:08 → ED 02-02 00:25 → MS2 02-02 00:26 → ED 02-02 01:35 → MS2 02-02 01:35
PROVIDERS: Family Medicine; Internal Medicine Nephrology; Nurse Practitioner; Nurse Practitioner Family; ADMIT Internal Medicine; ATTEND Internal Medicine
DX: I13.0 Hypertensive heart and chronic kidney disease with heart failure and stage 1 through stage 4 chronic kidney disease, or unspecified chronic kidney disease (principal); I50.43 Acute on chronic combined systolic (congestive) and diastolic (congestive) heart failure; J18.9 Pneumonia, unspecified organism; N17.9 Acute kidney failure, unspecified; E87.1 Hypo-osmolality and hyponatremia; I42.9 Cardiomyopathy, unspecified; J43.9 Emphysema, unspecified; E11.22 Type 2 diabetes mellitus with diabetic chronic kidney disease; N18.30 Chronic kidney disease, stage 3 unspecified; D63.1 Anemia in chronic kidney disease; I20.9 Angina pectoris, unspecified; K21.9 Gastro-esophageal reflux disease without esophagitis; F32.9 Major depressive disorder, single episode, unspecified; G47.33 Obstructive sleep apnea (adult) (pediatric); F17.200 Nicotine dependence, unspecified, uncomplicated; B19.20 Unspecified viral hepatitis C without hepatic coma; Z79.84 Long term (current) use of oral hypoglycemic drugs; Z20.822 Contact with and (suspected) exposure to COVID-19
CPT/HCPCS: G0378; J1650

== ENCOUNTER 2021-03-13 08:38 | Emergency (ER) | payer MEDICARE, MEDICAID ==
[~2021-03-13 08:38] MED LIST changes: +HYDROCO/APAP1 TA9 PO; +LASIX 40 MG TAB40 MG PO; +LORTAB5 PO
[2021-03-13] MEDS ORDERED: ASPIRIN81 MG PO (09:05)
[2021-03-13] MEDS ORDERED: TRAMADOL HCL50 MG PO (09:06)
[2021-03-13] MEDS ORDERED: CLOTRIMAZOLE PO (09:08)
[2021-03-13] MEDS ORDERED: ISOSORBIDE DINIT5 MG PO (09:08)
[2021-03-13] MEDS ORDERED: B121000 MC1 PO (09:09)
[2021-03-13] MEDS ORDERED: HYDRALAZINE HCL50 MG PO (09:11)
[2021-03-13] MEDS ORDERED: HYDROCO/APAP1 TA9 PO (09:59)
[2021-03-13 10:04] VITALS: BP 167/97
== END 2021-03-13 10:43 | disposition home or self-care (01) ==
LOC: ED 08:38
DX: M25.551 Pain in right hip (principal); I11.0 Hypertensive heart disease with heart failure; I50.9 Heart failure, unspecified; E11.9 Type 2 diabetes mellitus without complications; Z79.84 Long term (current) use of oral hypoglycemic drugs

== ENCOUNTER 2021-03-18 07:23 | Observation (INO) | payer MEDICARE, MEDICAID ==
[~2021-03-18] VITALS: Ht 157.5 cm; Wt 83.0 kg
[~2021-03-18 07:23] MED LIST changes: +ASPIRIN81 MG PO; +B121000 MC1 PO; +CLOTRIMAZOLE PO; +HYDRALAZINE HCL50 MG PO; +ISOSORBIDE DINIT5 MG PO
--- NOTE | 2021-03-18 07:23 | NUR ---
PATIENT TO ROOM VIA EMS AND PHYSICIAN NOTIFIED OF PATIENT STATUS
[2021-03-18] MEDS ORDERED: OXYCODONE5 M1 PO (08:03)
--- NOTE | 2021-03-18 09:00 | NUR ---
PATIENT RESTING AWAITING RADIOLOGY RESULTS. PAIN 4 ON 0-10 SCALE
--- NOTE | 2021-03-18 10:00 | NUR ---
RESTING ON STRETCHER. CALL THAYER WITHIN REACH.
--- NOTE | 2021-03-18 10:41 | NUR ---
UP TO BSC WITH ASSIST OF 1.
--- NOTE | 2021-03-18 11:40 | NUR ---
RESTING ON STRETCHER. CALL THAYER WITHIN REACH.
[2021-03-18 12:12] LABS: HEMATOCRIT 33.4 % (37.0-47.0); HEMOGLOBIN 10.3 g/dl (12.0-16.0); IMMATURE GRANULOCYTES 0.5 % (0.0-5.0); MEAN CELL VOLUME 93.6 fL CALC (80.0-100.0); MEAN CORPUSCULAR HGB 28.9 pG CALC (26.0-32.0); MEAN CORPUSCULAR HGB CONC 30.8 g/dL CAL (32.0-36.0); NEUT# 10.25 thou/uL (2.00-7.15); RED BLOOD COUNT 3.57 mill/uL (4.20-5.60); RED CELL DISTRI WIDTH 13.3 % (11.5-15.5)
[2021-03-18 12:17] LABS: ALBUMIN 3.6 g/dL (3.2-5.0); CREATININE 1.4 mg/dL (0.5-1.0); MAGNESIUM 1.7 mg/dL (1.6-2.3); POTASSIUM 3.8 mmol/l (3.5-5.1); TOTAL PROTEIN 6.8 g/dL (6.3-8.2)
--- NOTE | 2021-03-18 12:40 | NUR ---
PT REPORTS SHE DID NOT TAKE HER BP MEDS THIS MORNING WHEN ASKED BP IS ELEVATED. MD NOTIFIED. PT TO TAKE BP MEDS OF HERS SHE BROUGHT THEM WITH HER.
--- NOTE | 2021-03-18 13:40 | NUR ---
RESTING ON STRETCHER. CALL THAYER WITHIN REACH.
[2021-03-18] MEDS ORDERED: LOSARTAN POTASS50 MG PO (13:55)
[2021-03-18] MEDS ORDERED: TRAMADOL HCL50 MG PO (13:56)
[2021-03-18] MEDS ORDERED: TRELEGY ELLIPTA1 AER IN (13:57)
--- NOTE | 2021-03-18 14:30 | NUR ---
RESTING ON STRETCHER. CALL THAYER WITHIN REACH. AWAITING VENOUS ACCESS. MD AT BEDSIDE TO ATTEMPT.
--- NOTE | 2021-03-18 15:24 | NUR ---
BED ASSIGNMENT RECEIVED. AWAITING CENTRAL LINE PLACEMENT FOR TRANSFER UPSTAIRS.
--- NOTE | 2021-03-18 16:27 | NUR ---
CENTRAL LINE PLACED BY DR ROBB USING STERILE TECHNIQUE. PT TOLERATED WELL. BLEEDING CONTROLLED.
--- NOTE | 2021-03-18 17:23 | NUR ---
RESTING ON STRETCHER. AWAITING CT AND THEN TRANSPORT TO FLOOR
--- NOTE | 2021-03-18 18:15 | NUR ---
PT TRANSPORTED TO FLOOR WITH RN IN STABLE CONDITION.
--- NOTE | 2021-03-18 18:15 | NUR ---
PATIENT ARRIVED TO FLOOR VIA STREACHER. INTO BED WITH ASST. AXOX3, O2 RA. VS B/P 150/86 PL 78 02SATS 98% TEMP 97.4 RESP 18. NOTED TRIPPLE LUMIN CATH TO THE RIGHT GRION, CLEAN DRY AND INTACT. RIGHT LOWER EXT EDEMA, PAIN FUL TO TOUCH. ORIENTED TO THE ROOM, CALL SYSTEM , BED. T.V. AND TELEPHONE. PT RIGHTS EXPLAINED TO THE PATIENT. EDUCATED ON COVID RESTRICTIONS FOR VISITORS. PT UNABLE TO STAND ON SCALES AT THIS TIME DUE TO THE PAIN MEDICATION TAKE EFFECT. ALLERGY BAND AND FALL BAND IN PLACE. REPOSITIONED FOR COMOFRT, SIDE RAILS UP CALL LIGHT IN REACH, BED LOCKED IN LOW POSITION, WILL CONTINUE TO MONIOTR THE PATIENT.
[2021-03-18 18:29] VITALS: BP 150/86
[2021-03-18 19:27] VITALS: BP 147/86
--- NOTE | 2021-03-18 21:37 | NUR ---
PATIENT RESTING IN BED AT THIS TIME-STATES THAT SHE DID VOMITTING MODERATE AMT OF UNDIGESTED FOOD. MEDICATED WITH ZOFRAN 4MG IVP ORDERED FOR N/V. IVF PATENT AND INFUSING VIA RIGHT FEMERAL SITE ORDERED. TELE MONITOR IN PLACE. SAFETY PRECAUTIONS REINFORCED. CALL LIGHT IN REACH. WILL CONT TO MONITOR.
[2021-03-18 23:31] VITALS: BP 151/83
--- NOTE | 2021-03-18 23:35 | NUR ---
PATIENT RESTING IN BED AT THIS TIME. MEDICATED WITH SOLUMEDROL ORDERED VIA RIGHT FEMEROL TLC. IVF PATENT AND INFUSING ORDERED. VS TAKEN AND RECORDED. AFEBRILE. TELE MONITOR IN PLACE. NO FURTHER C/O NAUSEA AT THIS TIME. CALL LIGHT IN REACH. WILL CONT TO MONITOR.
[2021-03-19 05:00] VITALS: BP 144/66
--- NOTE | 2021-03-19 05:14 | NUR ---
PATIENT RESTING IN BED WATCHING TV. AM LABS DRAWN FROM RIGHT FEMORAL TLC-GOOD BLOOD RETURN FROM ALL 3 PORTS. FLUSHED WITH NS PER PROTOCL. VS TAKEN AND RECORDED. C/O RIGHT SIDE PAIN-8/10 ON PAIN SCALE. MEDICATED WITH DILAUDID 1MG IVP ORDERED FOR PAIN. PROVIDED WITH DIET GINGERALE. SAFETY PRECAUTIONS REINFORCED. TELE MONITOR IN PLACE-SR-60 AT LAST READING. CALL LIGHT IN REACH. WILL CONT TO MONITOR.
[2021-03-19 05:19] LABS: HEMATOCRIT 35.6 % (37.0-47.0); HEMOGLOBIN 10.9 g/dl (12.0-16.0); IMMATURE GRANULOCYTES 0.6 % (0.0-5.0); MEAN CELL VOLUME 94.7 fL CALC (80.0-100.0); MEAN CORPUSCULAR HGB CONC 30.6 g/dL CAL (32.0-36.0); NEUT# 11.34 thou/uL (2.00-7.15); RED BLOOD COUNT 3.76 mill/uL (4.20-5.60); RED CELL DISTRI WIDTH 13.4 % (11.5-15.5)
[2021-03-19 05:40] LABS: BILIRUBIN, TOTAL 0.7 mg/dL (0.0-1.4); CREATININE 1.6 mg/dL (0.5-1.0); POTASSIUM 4.5 mmol/l (3.5-5.1)
--- NOTE | 2021-03-19 05:44 | NUR ---
PATIENT ASSISTED OOB TO BSC TO VOID 200CC OF CONCENTRATED JANETH URINE. ASSISTED BACK INTO BED. TELE MONITOR IN PLACE. IVF PATENT AND INFUSING VIA RIGHT TLC FEMORAL SITE ORDERED. CALL LIGHT IN REACH. WILL CONT TO MONITOR.
[2021-03-19 07:35] VITALS: BP 149/82
--- NOTE | 2021-03-19 07:35 | NUR ---
PT LAYING IN BED. A&O X4. NO DISTRESS NOTED. PT C/O OF PAIN TO RT LEG,KNEE AND SHOULDER, WITH ONSET SINCE SATURDAY OF LAST WEEK. TRIPLE LUMEN TO RT GROIN/FEM IN PLACE WITH NS INFUSING @ 100ML/HR. EDEMA NOTE TO RT FOOT +2. NO WARMTH OR SWELLING NOTED TO ANY OTHER PART OF EXTREMITY. PT EDUCATED ON THE NEED FOR A URINE SAMPLE, PT AGREEABLE. MANAGER DATA WAREHOUSE IN PLACE. ACCUCHECK OBTAINED THIS MORNING, NO COVERAGE AVAILABLE A KYLE ESCOBAR NOTIFIED. ASSESSMENT COMPLETED. DISCUSSED POC. CALL LIGHT WITHIN REACH.
--- NOTE | 2021-03-19 09:43 | NUR ---
DR KEITH AND Tiana WRIGHT APRN AT BEDSIDE DISCUSSING POC
[2021-03-19 11:00] VITALS: BP 140/79
[2021-03-19 12:23] LABS: URINE BILIRUBIN - DIPSTICK NEGATIVE (NEGATIVE); URINE BLOOD DIPSTICK NEGATIVE (NEGATIVE); URINE CLARITY CLEAR; URINE GLUCOSE - DIPSTICK NEGATIVE (NEGATIVE); URINE KETONE NEGATIVE (NEGATIVE); URINE LEUK ESTERASE NEGATIVE (Negative); URINE NITRITE - DIPSTICK NEGATIVE (Negative); URINE PROTEIN - DIPSTICK 30 mg/dL (NEG-TRACE); URINE SPECIFIC GRAVITY 1.025
[2021-03-19 12:27] LABS: URINE RBC 0-2 RBC/hpf (0-5); URINE SQUAMOUS EPITHELIAL CELL FEW EPI/hpf (0-FEW); URINE WBC 0-2 WBC/hpf (0-5)
[2021-03-19] MEDS ORDERED: COLCHICINE0.6 M2 PO (12:59)
[2021-03-19 13:57] LABS: URINE COLOR DK. YELLOW
--- NOTE | 2021-03-19 14:12 | NUR ---
UPDATED PT ON D/C PLANNING. RT FEMORAL CENTRAL LINE REMOVED. INTACT UPON REMOVAL. PRESSURE HELD FOR SEVERAL MINUTES, AREA CLEANSED, AND OCCLUSIVE DRESSING PLACED. PT TOLERATED WELL.
[2021-03-19 14:36] VITALS: BP 140/79
--- NOTE | 2021-03-19 14:38 | NUR ---
D/C INSTRUCTIONS GIVEN, VERBALIZED UNDERSTANDING.
--- NOTE | 2021-03-19 15:00 | NUR ---
Discharge instructions given. Patient verbalizes understanding of same. Discharged in stable condition via wheelchair to home accompanied by Tom LARA. Dressing to rt fem remains intact. Vandana metz approved by waterproofing supervisor Kan DOE. All belongings sent with pt.
== END 2021-03-19 15:00 | disposition home or self-care (01) ==
LOC: ED 07:23 → ED-I 13:25 → ED 14:10 → ED-I 14:11 → MS2 14:37
PROVIDERS: Emergency Medicine; Nurse Practitioner Family; ADMIT Internal Medicine; ATTEND Internal Medicine
PROC: 06HY33Z Insertion of Infusion Device into Lower Vein, Percutaneous Approach (ICD-10-PCS; principal; 2021-03-18)
DX: L03.115 Cellulitis of right lower limb (principal); M79.601 Pain in right arm; M25.511 Pain in right shoulder; G89.29 Other chronic pain; I13.0 Hypertensive heart and chronic kidney disease with heart failure and stage 1 through stage 4 chronic kidney disease, or unspecified chronic kidney disease; E11.22 Type 2 diabetes mellitus with diabetic chronic kidney disease; N18.2 Chronic kidney disease, stage 2 (mild); I50.9 Heart failure, unspecified; J43.9 Emphysema, unspecified; E66.9 Obesity, unspecified; B19.20 Unspecified viral hepatitis C without hepatic coma; K21.9 Gastro-esophageal reflux disease without esophagitis; F32.9 Major depressive disorder, single episode, unspecified; G47.33 Obstructive sleep apnea (adult) (pediatric); F17.200 Nicotine dependence, unspecified, uncomplicated; Z79.84 Long term (current) use of oral hypoglycemic drugs; Z20.822 Contact with and (suspected) exposure to COVID-19
CPT/HCPCS: G0378; J2060; Q9967

== ENCOUNTER 2021-06-29 09:17 | Observation (INO) | payer MEDICARE, MEDICAID ==
[~2021-06-29] VITALS: Ht 157.5 cm; Wt 79.0 kg
[~2021-06-29 09:17] MED LIST changes: +COLCHICINE0.6 M2 PO; +OXYCODONE5 M1 PO; +PAROXETINE HCL10 MG PO; -PAROXETINE HCL30 MG PO
--- NOTE | 2021-06-29 09:17 | NUR ---
PATIENT TO ROOM VIA EMS AND PHYSICIAN NOTIFIED OF PATIENT STATUS
--- NOTE | 2021-06-29 10:42 | NUR ---
PT MEDICATED IM. LAB TO COME DRAW ORDERED LABS. COMFORT MEASURES PROVIDED.
[2021-06-29 11:09] LABS: HEMATOCRIT 35.3 % (37.0-47.0); HEMOGLOBIN 10.8 g/dl (12.0-16.0); IMMATURE GRANULOCYTES 0.2 % (0.0-5.0); MEAN CELL VOLUME 96.4 fL CALC (80.0-100.0); MEAN CORPUSCULAR HGB 29.5 pG CALC (26.0-32.0); MEAN CORPUSCULAR HGB CONC 30.6 g/dL CAL (32.0-36.0); NEUT# 8.77 thou/uL (2.00-7.15); RED BLOOD COUNT 3.66 mill/uL (4.20-5.60); RED CELL DISTRI WIDTH 15.9 % (11.5-15.5)
--- NOTE | 2021-06-29 11:30 | NUR ---
PT ADVISED OF WAIT TIME FOR TEST RESULTS. CALL LIGHT PROVIDED.
[2021-06-29 11:37] LABS: ALBUMIN 3.8 g/dL (3.2-5.0); CREATININE 1.7 mg/dL (0.5-1.0)
--- NOTE | 2021-06-29 12:30 | NUR ---
PT MEDICATED FOR RETURN C/O PAIN MORPHINE IM. TOLERATED WELL. COMFORT MEASURES PROVIDED. CALL LIGHT WIHTIN REACH
--- NOTE | 2021-06-29 14:30 | NUR ---
PT RESTING ON STRETCHER. NO C/O PAIN AT THIS TIME. APPEARS COMFORTABLE.
[2021-06-29] MEDS ORDERED: LOSARTAN POTASS50 MG PO (14:38)
[2021-06-29] MEDS ORDERED: TERBINAFINE250 M1 PO (14:39)
[2021-06-29] MEDS ORDERED: FUROSEMIDE20 MG PO (14:39)
[2021-06-29] MEDS ORDERED: CLOPIDOGREL75 MG PO (14:40)
[2021-06-29] MEDS ORDERED: CALCITRIOL0.25 MC1 PO (14:41)
[2021-06-29] MEDS ORDERED: SERTRALINE50 MG PO (14:41)
[2021-06-29] MEDS ORDERED: ALLOPURINOL100 MG PO (14:42)
[2021-06-29] MEDS ORDERED: CRESTOR10 MG PO (14:42)
[2021-06-29] MEDS ORDERED: TRELEGY ELLIPTA1 AER IN (14:43)
[2021-06-29] MEDS ORDERED: VENTOLIN HFA IN (14:45)
[2021-06-29] MEDS ORDERED: OXYCODONE5 M1 PO (14:47)
--- NOTE | 2021-06-29 16:15 | NUR ---
IV SITE OBTAINED TO LEFT NECK PT TOLETATED WELL. BRISK RETURN FLUSHES WELL.
--- NOTE | 2021-06-29 17:30 | NUR ---
MEAL TRAY PROVIDED PT FEEDS SELF WITHOUT ASSIST.
--- NOTE | 2021-06-29 18:15 | NUR ---
PT ABLE TO REPOSITION SELF. CALL LIGHT WITHIN REACH. NO C/O PAIN
[2021-06-29 19:00] VITALS: BP 180/95
--- NOTE | 2021-06-29 19:10 | NUR ---
REPORT RECEIVED FROM Srinath KIRK RN
--- NOTE | 2021-06-29 19:20 | NUR ---
REPORT PROVIDED TO NADER LEE. ADVISED OF ALL EVENTS, MEDS, ATTACHMENTS PT TO MEDSUR VIA STRETCHER ON TELE, LT EJ PATENT SALINE LOCKED. PT DENIES PAIN AT THIS TIME IS ABLE TO MAEW. VSS.
--- NOTE | 2021-06-29 19:25 | NUR ---
REPORT RECEIVED FROM Srinath KIRK RN
--- NOTE | 2021-06-29 19:25 | NUR ---
PATIENT ARRIVED ON FLOOR ACOMPANIED BY Srinath KIRK RN VIA STRETCHER
--- NOTE | 2021-06-29 20:00 | NUR ---
66 YEAR OLD FEMALE ARRIVD TO FLOOR VIA STRETCHER ACCOPANIED BY ER NURSING STAFF WITH DIAGNOSIS OF GOUT, DM, HTN, CHF, COPD, HX OF PNEUMONIA AND ARTHRITIS. PATIENT IS ALERT, VERBAL, ABLE TO MAKE NEEDS KNOWN. ABLE TO TOLERATE MEDS WELL WHOLE. CONT OF BOWEL AND BLADDER WITH OCC EPISODES OF INC NOTD--CARE PROVIDED PRN. ABLE TO TRANSFER WITH ONE PERSON ASSIST D/T WEAKNESS--USES CANE AT HOME--NOT IN HOUSE WITH HER AT THE MOMENT. DENIES PAIN AT TIME OF ASSESSMENT. ALLERGIES TO PCN. CARDIAC LOW FAT 2 GRAM NA DIET IN PLACE. LAST BM YESTERDAY. FULL CODE. SKIN ASSESSMENT COMPLETED--NO GROSS ABNORMALITIES NOTED ONLY OLD SURGICAL SCARRING FROM A CHOLECYSTECTOMY TO THE RIGHT SIDE OF ABDOMEN. 22 GAUGE INTACT TO LEFT JUGGLAR--FLUSHES WELL--SITE UNREMARKABLE. ORIENTED TO ROOM--C/L WITHIN REACH--WILL CONT TO MONITOR FOR ANY FURTHER CHANGES.
--- NOTE | 2021-06-29 20:15 | NUR ---
ADMINISTERED MEDICATIONS PER EMAR, SEE EMAR.
[2021-06-30] VITALS: BP 147/76
--- NOTE | 2021-06-30 00:20 | NUR ---
PATIENT UP USING THE RESTROOM AT THIS TIME. DENIES CHEST PAIN. CALL LIGHT AND BEDSIDE TABLE WITHIN REACH.
[2021-06-30 04:00] VITALS: BP 123/71; BP 137/69
--- NOTE | 2021-06-30 04:20 | NUR ---
PATIENT SLEEPING SOUNDLY. CALL LIGHT AND BEDSIDE TABLE WITHIN REACH
[2021-06-30 06:16] LABS: HEMATOCRIT 33.2 % (37.0-47.0); HEMOGLOBIN 10.2 g/dl (12.0-16.0); MEAN CELL VOLUME 97.1 fL CALC (80.0-100.0); MEAN CORPUSCULAR HGB 29.8 pG CALC (26.0-32.0); MEAN CORPUSCULAR HGB CONC 30.7 g/dL CAL (32.0-36.0); RED BLOOD COUNT 3.42 mill/uL (4.20-5.60); RED CELL DISTRI WIDTH 15.5 % (11.5-15.5)
[2021-06-30 07:56] VITALS: BP 141/74
--- NOTE | 2021-06-30 07:56 | NUR ---
PT IN BED UPON ENTERING ROOM. VITALS AND ASSESSMENT DONE. PT IS ALERT AND ORIENTED. S1 AND S2 HEARD UPON ASCULTATION. LUNGS CLEAR BILATERALLY. PTS BOWELS ACTIVE IN 4 QUADRANTS. SKIN WARM AND DRY. IV IN THE LEFT JUGULAR 22 GAUGE. PEDAL PULSES BILATERALLY STRONG. NO OTHER NEEDS NOTED. CALL LIGHT WITHIN REACH.
--- NOTE | 2021-06-30 08:01 | NUR ---
PT note Patient is screened for PT intervention and no needs are identified at this time
--- NOTE | 2021-06-30 11:40 | NUR ---
DR. HESS AND Sophia GILES. AT BEDSIDE DISCUSSING POC.
--- NOTE | 2021-06-30 12:00 | NUR ---
PT IN BED. NO DISTRESS NOTED. CALL LIGHT WITHIN REACH.
[2021-06-30 12:05] VITALS: BP 150/81
[2021-06-30] MEDS ORDERED: MEDDOSEPAK PO (12:49)
--- NOTE | 2021-06-30 13:55 | NUR ---
PT WAS GIVEN HER HOME MEDICATIONS. 2 BIG BAGS WERE GIVEN TO HER. PT IS AWAITING HER IN ORDER TO GO HOME. CALL LIGHT WITHIN REACH.
--- NOTE | 2021-06-30 14:10 | NUR ---
Discharge instructions given. Patient verbalizes understanding of same. Discharged in stable condition via Wheelchair to Home with staff. All belongings sent with pt. PT WAS SENT HOME WITH HER HOME MEDICATIONS.
== END 2021-06-30 14:20 | disposition home or self-care (01) ==
LOC: ED 09:17 → ED-I 14:55 → ED 15:06 → MS2 15:07 → ED-I 15:07 → MS2 18:45
PROVIDERS: Family Medicine; Nurse Practitioner; ADMIT Hospitalist; ATTEND Hospitalist
DX: M62.838 Other muscle spasm (principal); M47.812 Spondylosis without myelopathy or radiculopathy, cervical region; M54.5 Low back pain; M54.6 Pain in thoracic spine; I13.0 Hypertensive heart and chronic kidney disease with heart failure and stage 1 through stage 4 chronic kidney disease, or unspecified chronic kidney disease; I50.9 Heart failure, unspecified; E11.22 Type 2 diabetes mellitus with diabetic chronic kidney disease; N18.2 Chronic kidney disease, stage 2 (mild); J43.9 Emphysema, unspecified; B19.20 Unspecified viral hepatitis C without hepatic coma; F32.9 Major depressive disorder, single episode, unspecified; G47.33 Obstructive sleep apnea (adult) (pediatric); K21.9 Gastro-esophageal reflux disease without esophagitis; M10.9 Gout, unspecified; F17.200 Nicotine dependence, unspecified, uncomplicated; Z79.84 Long term (current) use of oral hypoglycemic drugs; Z20.822 Contact with and (suspected) exposure to COVID-19; R07.9 Chest pain, unspecified
CPT/HCPCS: G0378

== ENCOUNTER 2021-08-21 10:32 | Observation (INO) | payer MEDICARE, MEDICAID ==
[~2021-08-21] VITALS: Ht 157.5 cm; Wt 79.8 kg
[~2021-08-21 10:32] MED LIST changes: +ALLOPURINOL100 MG PO; +CALCITRIOL0.25 MC1 PO; +CLOPIDOGREL75 MG PO; +CRESTOR10 MG PO; +SERTRALINE50 MG PO; +TERBINAFINE250 M1 PO
[2021-08-21 11:23] LABS: HEMATOCRIT 37.1 % (37.0-47.0); HEMOGLOBIN 11.3 g/dl (12.0-16.0); IMMATURE GRANULOCYTES 0.1 % (0.0-5.0); MEAN CELL VOLUME 100.8 fL CALC (80.0-100.0); MEAN CORPUSCULAR HGB 30.7 pG CALC (26.0-32.0); MEAN CORPUSCULAR HGB CONC 30.5 g/dL CAL (32.0-36.0); NEUT# 6.09 thou/uL (2.00-7.15); RED BLOOD COUNT 3.68 mill/uL (4.20-5.60); RED CELL DISTRI WIDTH 16.7 % (11.5-15.5)
[2021-08-21 11:29] LABS: ALKALINE PHOSPHATASE 98 u/l (38-126); ANION GAP 14 (6-22 (CALC)); BILIRUBIN, TOTAL 1.1 mg/dL (0.0-1.4); BUN 15 mg/dL (8-23); BUN/CREATININE RATIO 10 (12-20 (CALC)); CARBON DIOXIDE 22 mmol/l (22-30); CHLORIDE 111 mmol/l (95-108); CREATININE 1.5 mg/dL (0.5-1.0); GFR 35 ML/MIN (>=60 (CALC)); GFR FOR AFR.AMER. 42 ML/MIN (>=60 (CALC)); LIPASE < 10 u/l (23-300); POTASSIUM 4.4 mmol/l (3.5-5.1); SGOT/AST 51 u/l (9-36); SODIUM 142 mmol/l (137-146); TOTAL PROTEIN 6.9 g/dL (6.3-8.2)
[2021-08-21 11:35] LABS: ACT PARTIAL THROMBO TIME 21.5 SECONDS (20.0-32.5); PROTHROMBIN TIME 10.8 SECONDS (9.0-12.5)
[2021-08-21] MEDS ORDERED: ISOSORB MONO30 MG PO (13:01)
[2021-08-21] MEDS ORDERED: TERBINAFINE HC250 MG PO (13:02)
[2021-08-21] MEDS ORDERED: PROTONIX40 M2 PO (13:03)
[2021-08-21 15:02] VITALS: BP 195/88
[2021-08-21 19:00] VITALS: BP 172/74
[2021-08-22] VITALS: BP 148/62
[2021-08-22 04:00] VITALS: BP 140/54
[2021-08-22 04:54] LABS: HEMOGLOBIN 10.2 g/dl (12.0-16.0); MEAN CELL VOLUME 98.8 fL CALC (80.0-100.0); MEAN CORPUSCULAR HGB 30.5 pG CALC (26.0-32.0); MEAN CORPUSCULAR HGB CONC 30.9 g/dL CAL (32.0-36.0); RED BLOOD COUNT 3.34 mill/uL (4.20-5.60); RED CELL DISTRI WIDTH 16.5 % (11.5-15.5)
[2021-08-22 05:03] LABS: CREATININE 2.1 mg/dL (0.5-1.0); MAGNESIUM 1.5 mg/dL (1.6-2.3); POTASSIUM 3.9 mmol/l (3.5-5.1)
[2021-08-22 08:20] VITALS: BP 136/70
[2021-08-22 11:04] VITALS: BP 158/68
[2021-08-22 14:30] VITALS: BP 130/60
[2021-08-22 19:00] VITALS: BP 158/72
[2021-08-23] VITALS: BP 168/82; BP 175/60
[2021-08-23 04:00] VITALS: BP 147/62
[2021-08-23 05:15] LABS: HEMATOCRIT 33.6 % (37.0-47.0); HEMOGLOBIN 10.3 g/dl (12.0-16.0); MEAN CELL VOLUME 100.3 fL CALC (80.0-100.0); MEAN CORPUSCULAR HGB 30.7 pG CALC (26.0-32.0); MEAN CORPUSCULAR HGB CONC 30.7 g/dL CAL (32.0-36.0); RED BLOOD COUNT 3.35 mill/uL (4.20-5.60); RED CELL DISTRI WIDTH 16.7 % (11.5-15.5)
[2021-08-23 05:39] LABS: CREATININE 2.1 mg/dL (0.5-1.0); MAGNESIUM 1.6 mg/dL (1.6-2.3); POTASSIUM 3.6 mmol/l (3.5-5.1)
[2021-08-23 07:45] VITALS: BP 156/69
[2021-08-23] MEDS ORDERED: LEVAQUIN750 M1 PO (11:14)
[2021-08-23 12:00] VITALS: BP 150/68
== END 2021-08-23 13:35 | disposition home or self-care (01) ==
LOC: ED 10:32 → MS2 12:45
PROVIDERS: Nurse Practitioner; ADMIT Hospitalist; ATTEND Hospitalist
PROC: 05H933Z Insertion of Infusion Device into Right Brachial Vein, Percutaneous Approach (ICD-10-PCS; 2021-08-21)
PROC: 3E02340 Introduction of Influenza Vaccine into Muscle, Percutaneous Approach (ICD-10-PCS; principal; 2021-08-22)
PROC: 3E0234Z Introduction of Serum, Toxoid and Vaccine into Muscle, Percutaneous Approach (ICD-10-PCS; 2021-08-22)
DX: I13.0 Hypertensive heart and chronic kidney disease with heart failure and stage 1 through stage 4 chronic kidney disease, or unspecified chronic kidney disease (principal); I16.0 Hypertensive urgency; I50.9 Heart failure, unspecified; J43.9 Emphysema, unspecified; J18.9 Pneumonia, unspecified organism; E11.22 Type 2 diabetes mellitus with diabetic chronic kidney disease; N18.4 Chronic kidney disease, stage 4 (severe); R09.02 Hypoxemia; G47.33 Obstructive sleep apnea (adult) (pediatric); I42.9 Cardiomyopathy, unspecified; B19.20 Unspecified viral hepatitis C without hepatic coma; K21.9 Gastro-esophageal reflux disease without esophagitis; F32.A Depression, unspecified; M19.90 Unspecified osteoarthritis, unspecified site; M25.511 Pain in right shoulder; F17.200 Nicotine dependence, unspecified, uncomplicated; Z23 Encounter for immunization; Z79.84 Long term (current) use of oral hypoglycemic drugs; Z20.822 Contact with and (suspected) exposure to COVID-19; Z88.0 Allergy status to penicillin
CPT/HCPCS: G0378

== ENCOUNTER 2021-09-13 09:49 | Emergency (ER) | payer MEDICARE, MEDICAID ==
[~2021-09-13] VITALS: Ht 157.5 cm; Wt 68.0 kg
[~2021-09-13 09:49] MED LIST changes: +ISOSORB MONO30 MG PO; +PROTONIX40 M2 PO; +TERBINAFINE HC250 MG PO
[2021-09-13 11:08] LABS: HEMATOCRIT 35.7 % (37.0-47.0); IMMATURE GRANULOCYTES 0.2 % (0.0-5.0); MEAN CELL VOLUME 98.6 fL CALC (80.0-100.0); MEAN CORPUSCULAR HGB 30.4 pG CALC (26.0-32.0); MEAN CORPUSCULAR HGB CONC 30.8 g/dL CAL (32.0-36.0); NEUT# 7.55 thou/uL (2.00-7.15); RED BLOOD COUNT 3.62 mill/uL (4.20-5.60); RED CELL DISTRI WIDTH 15.3 % (11.5-15.5)
[2021-09-13 11:20] LABS: ALBUMIN 3.4 g/dL (3.2-5.0); BILIRUBIN, TOTAL 0.7 mg/dL (0.0-1.4); CREATININE 1.6 mg/dL (0.5-1.0); POTASSIUM 3.8 mmol/l (3.5-5.1); TOTAL PROTEIN 6.1 g/dL (6.3-8.2)
[2021-09-13] MEDS ORDERED: NAPROXEN500 MG PO (11:42)
[2021-09-13 12:06] VITALS: BP 183/80
== END 2021-09-13 12:20 | disposition home or self-care (01) ==
LOC: ED 09:49
PROVIDERS: Emergency Medicine
DX: S73.102A Unspecified sprain of left hip, initial encounter (principal); M16.12 Unilateral primary osteoarthritis, left hip; E11.9 Type 2 diabetes mellitus without complications; I11.0 Hypertensive heart disease with heart failure; I50.9 Heart failure, unspecified; J44.9 Chronic obstructive pulmonary disease, unspecified; G47.30 Sleep apnea, unspecified; F17.200 Nicotine dependence, unspecified, uncomplicated; Z79.84 Long term (current) use of oral hypoglycemic drugs; W19.XXXA Unspecified fall, initial encounter

== ENCOUNTER 2021-11-25 07:49 | Observation (INO) | payer MEDICARE, MEDICAID ==
[~2021-11-25] VITALS: Ht 157.5 cm; Wt 76.0 kg
[2021-11-25] VITALS (7 sets, daily range): BP systolic 170–196; BP diastolic 76–101
[~2021-11-25 07:49] MED LIST changes: +NAPROXEN500 MG PO
--- NOTE | 2021-11-25 08:02 | NUR ---
PATIENT TO ROOM VIA EMS AND PHYSICIAN AT BEDSIDE FOR EVAL
[2021-11-25 08:54] LABS: HEMATOCRIT 34.4 % (37.0-47.0); HEMOGLOBIN 10.2 g/dl (12.0-16.0); IMMATURE GRANULOCYTES 0.2 % (0.0-5.0); MEAN CELL VOLUME 102.4 fL CALC (80.0-100.0); MEAN CORPUSCULAR HGB 30.4 pG CALC (26.0-32.0); MEAN CORPUSCULAR HGB CONC 29.7 g/dL CAL (32.0-36.0); NEUT# 6.16 thou/uL (2.00-7.15); RED BLOOD COUNT 3.36 mill/uL (4.20-5.60); RED CELL DISTRI WIDTH 16.5 % (11.5-15.5)
--- NOTE | 2021-11-25 09:00 | NUR ---
Reassessment of patient completed. No distress noted.
[2021-11-25 09:12] LABS: ALBUMIN 3.6 g/dL (3.2-5.0); ALKALINE PHOSPHATASE 85 u/l (38-126); BUN 20 mg/dL (8-23); BUN/CREATININE RATIO 12 (12-20 (CALC)); CARBON DIOXIDE 26 mmol/l (22-30); CHLORIDE 110 mmol/l (95-108); CREATININE 1.7 mg/dL (0.5-1.0); GFR 30 ML/MIN (>=60 (CALC)); GFR FOR AFR.AMER. 36 ML/MIN (>=60 (CALC)); LIPASE < 10 u/l (23-300); SGOT/AST 29 u/l (9-36); SODIUM 140 mmol/l (137-146); TOTAL PROTEIN 6.5 g/dL (6.3-8.2)
[2021-11-25 09:14] LABS: ACT PARTIAL THROMBO TIME 25.7 SECONDS (20.0-32.5); PROTHROMBIN TIME 10.2 SECONDS (9.0-12.5)
[2021-11-25 09:15] LABS: ANION GAP 9 (6-22 (CALC)); POTASSIUM 4.9 mmol/l (3.5-5.1)
--- NOTE | 2021-11-25 10:05 | NUR ---
PATIENT MEDICATED AND REPOSITIONED FOR COMFORT.
[2021-11-25] MEDS ORDERED: DICLOFENAC SODI OU (10:32)
[2021-11-25] MEDS ORDERED: COLCHICINE0.6 M2 PO (10:33)
[2021-11-25] MEDS ORDERED: OMEPRAZOLE20 MG PO (10:33)
[2021-11-25] MEDS ORDERED: TRELEGY ELLIPTA1 AER IN (10:35)
--- NOTE | 2021-11-25 11:23 | NUR ---
Reassessment of patient completed. No distress noted.
--- NOTE | 2021-11-25 12:05 | NUR ---
Reassessment of patient completed. VSS. PATIENT UNCOMFORTABLE BUT NOT IN DISTRESS.
--- NOTE | 2021-11-25 12:45 | NUR ---
PATIENT RECEIVED FROM ED WITH A BLOOD PRESSURE OF 196/101 AT THIS TIME. PATIENT STATED THAT SHE HAD NOT TAKEN ANY OF HER HOME MEDICATION THIS AM. TANMAY CARPENTERPN ADVISES AND ALL HOME MEDS WERE ORDERED TO BE GIVEN. PATIENT PRESENTED TO FLOOR SHORT OF BREATH AND SPO2 OF 98% ON ROOM AIR. PATIENT PLACED ON OXYGEN AT 2LITERS AND PATIENT GIVEN EXERCISES IN BREATHING AND RELAXATION AT THIS TIME. PATIENT PRESENTS TO FLOOR WITH NO SIGNS OF EDEMA AND PULSES ARE STRONG. PATIENT DOES HAD LARGE BANDAGE ON LEFT UPPER CHEST WALL (4X4) WITH SMALL AMOUNT OF DRAINAGE NOTED. PATIENT STATE SHE HAD AN INTERNAL DEFIBULATOR PLACE ON 11/17/21 AT [facility]. PATIENT COMPLAING OF GENERALIZED PAIN AND REQUESTING HER PAIN MEDICATION AT THIS TIME. LUNG FIELD ARE CLEAR IN UPPER QUILES AND DIMINISHED IN LOWER QUILES. CARBIDER DONE SEE INTERVENTIONS PATIENT HAS TELE ON AT THIS TIME AND READING S/R AT 64BPM. WILL CONTINUE TO MONITOR.
--- NOTE | 2021-11-25 13:10 | NUR ---
PATIENT GIVEN AT THIS TIME 10MG OF ROXICODONE FOR PAIN LEVEL OF 6 OUT OF 10. PATIENT ALSO GIVEN ALL DAILY MEDICATIONS AT THIS TIME WILL CONTINUE TO MONITOR.
--- NOTE | 2021-11-25 15:23 | NUR ---
PATIENT RESTING IN BED AT THIS TIME. PATIENT STATES SHE IS FEELING MUCH BETTER AND BREATHING IN NON-LABORED. SPO2 ON 2 LITERS IS 99% AT THIS TIME. SIDERAILS ARE UP CALL LIGHT WITHIN REACH. PATIENT STATES HE PAIN LEVEL IS DOWN TO A 3 AND TOLERABLE AT THIS TIME. TELE MONITOR ON AND IS BEING MONITORED BY ED. WILL CONTINUE TO MONITOR.
--- NOTE | 2021-11-25 17:21 | NUR ---
PATIENT GIVEN 10MG OF APRESOLINE IV AT THIS TIME FOR BP OF 184/90 WILL CONTINUE TO MONITOR.
--- NOTE | 2021-11-25 20:00 | NUR ---
PATIENT RESTING IN BED AT THIS TIME WITH O2 VIA NASAL CANNULA IN PLACE AT 2LPM-O2 SAT IS 97% AT THIS TIME. BP IS ELEVATED AT 190/90-ALREADY WAS MEDICATED WITH APRESOLINE ON DAYSHIFT-HS MEDS GIVEN AT THIS TIME. ROXICODONE 10MG PO WAS GIVEN FOR GENERALIZED PAIN OF 8/10 ON PAIN SCALE. PATIENT WITH PATIENT WITH DRESSING TO LEFT UPPER CHEST-STATES THAT SHE RECENTLY GOT DEFIB LAST WEEK IN [place]. TELE MONITOR IN PLACE. SALINE LOCK TO LEFT WRIST-SITE APPEARS HEALTHY AT THIS TIME. PATIENT IS ON ISOLATION FOR COVID. SAFETY PRECAUTIONS REINFORCED. CALL LIGHT IN REACH. WILL CONT TO MONITOR.
--- NOTE | 2021-11-25 21:58 | NUR ---
RESTING IN BED. BP IS DOWN TO 170/86, HR-61. STATES THAT HE PAIN IS BETTER AT 6/10 ON PAIN SCALE. HAS BEEN UP TO THE [facility] FOR BM TONIGHT AND IS ALSO VOIDING YELLOW URINE. SAFETY PRECAUTIONS REINFORCED. CALL LIGHT IN REACH. WILL CONT TO MONITOR.
[2021-11-26] VITALS (7 sets, daily range): BP systolic 124–172; BP diastolic 55–90
--- NOTE | 2021-11-26 03:52 | NUR ---
PATIENT RESTING IN BED AT THIS TIME-C/O GENERALIZED PAIN-8/10 ON PAIN SCALE. MEDICATED WITH ROXICODONE 10MG PO FOR P AIN. BP-172/90, P-62. MEDICATED WITH APREOLINE 10MG IVP ORDERED FOR HTN. O2 IS OFF AT THIS TIME-O2 SATS IS 93%. PATIENT STATES THAT HER BREATHING IS COMFORTABLE AT THIS TIME. CALL LIGHT IN REACH. SAFETY PRECAUTIONS REINFORCED. WILL CONT TO MONITOR.
--- NOTE | 2021-11-26 04:49 | NUR ---
PATIENT RESTING IN BED WITH EYES CLOSED AND RESPS EVEN AND UNLABORED. BP-166/84, HR-60. TELE MONITOR IN PLACE. O2 OFF WITH O2 SAT OF 93%. CALL LIGHT IN REACH. WILL CONT TO MONITOR.
[2021-11-26 05:53] LABS: CHOLESTEROL HDL RATIO 3.5 (<4.4 (CALC)); CREATININE 1.7 mg/dL (0.5-1.0); MAGNESIUM 1.9 mg/dL (1.6-2.3); POTASSIUM 4.4 mmol/l (3.5-5.1)
--- NOTE | 2021-11-26 07:15 | NUR ---
PATIENT RESTING IN BED AT THIS TIME SIDERAIL ARE UP X 2 CALL LIGHT WIHTIN REACH PATIENT STATES PAIN IS A 1 OUT OF 10 TRADER DONE AT THIS TIME. LUNG QUILES REMAIN DIMINISHED NON PRODUCTICE COUGH. TELE MONITOR ON AT THIS TIME. WILL CONTINUE TO MONITOR.
--- NOTE | 2021-11-26 12:03 | NUR ---
PATIENT RESTING IN BED AT THIS TIME. PATIENT STATES HER PAIN IS A 1-2 ON PAIN SCALE AT THIS TIME. TELE MONITOR ON AT THIS TIME BEING MONITORED BY ED. SIDERAILS ARE UP CALL LIGHT WITHIN REACH EATING LUNCH AT THIS TIME.,
--- NOTE | 2021-11-26 12:46 | NUR ---
PATIENT COMPLIANING OF PAIN OF 6 OUT OF 10 ACHING (GENERALIZED) PATIENT REQUESING HER PAIN MEDICATION AT THIS TIME. 10MG OF OXYCODONE GIVEN AT THIS TIME, SIDERAILS ARE UP CALL LIGHT LIZ SIM.
--- NOTE | 2021-11-26 16:02 | NUR ---
PATIENT LAYING IN BED AT THIS TIME. PATIENT IV SITE INFILTRATED AT THIS TIME FLUSH WAS ATTEMPTED. TELE MONITOR IN PLACE AND PATIENT STATED PAIN IS A 2 AT THIS TIME. PATIENT GIVEN A SANDWHICH AT THIS TIME PATIENT STATED SHE DIDN'T EAT MUCH LUNCH. SIDERAILS ARE UP CALL LIGHT WIHTIN REACH TELE MONITOR REMAINS IN PLACE.
--- NOTE | 2021-11-26 20:45 | NUR ---
PATIENT RESTING IN BED AT THIS TIME-AWAKE ALERT AND ORIENTEDX3. PATIENT WITH C/O GENERALIZED PAIN 7/10 AT THIS TIME. MEDICATED WITH ROXICODONE 10MG PO FOR PAIN. PATIENT WITH DRESSING TO LEFT UPPER CHEST STILL INTACT. TELE MONITOR IN PLACE-LAST READING WAS SR-60'S. SALINE LOCK TO LEFT FOREARM INTACT-HEALTHY AT THIS TIME. ACCU-CHECK IS 201-NO COVERAGE ORDERED. O2 SAT IS 95% ON RA. SAFETY PRECAUTIONS REINFORCED. CALL LIGHT IN REACH. WILL CONT TO MONITOR.
[2021-11-27 00:12] VITALS: BP 145/68
--- NOTE | 2021-11-27 00:27 | NUR ---
PATIENT RESTING IN BED AT THIS TIME WITH EYES CLOSED. RESPS ARE EVEN AND UNLABORED. CALL LIGHT IN REACH. WILL CONT TO MONITOR
--- NOTE | 2021-11-27 04:06 | NUR ---
BP-177/80, HR-60 AND O2 SAT IS 97% ON RA. MEDICATED WITH APRESOLINE 10MG IVP VIA LEFT FOREARM SITE FOR HTM. MEDICATED WITH ROXICODONE 10MG PO FOR 7/10 ON PAIN SCALE. PATIENT UP TO THE SHOWER-MIN ASSIST. VOIDED 300CC OF YELLOW URINE. TELE MONITOR REAPPLIED. AND PATIENT BACK IN BED. LAB HERE TO DRAW AM LABS. SAFETY PRECAUTIONS REINFORCED. CALL LIGHT IN REACH. WILL CONT TO MONITOR.
[2021-11-27 04:10] VITALS: BP 177/88
[2021-11-27 05:41] LABS: ALBUMIN 3.7 g/dL (3.2-5.0); BILIRUBIN, TOTAL 0.7 mg/dL (0.0-1.4); MAGNESIUM 1.9 mg/dL (1.6-2.3); POTASSIUM 4.4 mmol/l (3.5-5.1); TOTAL PROTEIN 6.6 g/dL (6.3-8.2)
[2021-11-27 05:44] LABS: HEMATOCRIT 35.7 % (37.0-47.0); HEMOGLOBIN 10.8 g/dl (12.0-16.0); IMMATURE GRANULOCYTES 0.3 % (0.0-5.0); MEAN CELL VOLUME 99.2 fL CALC (80.0-100.0); MEAN CORPUSCULAR HGB CONC 30.3 g/dL CAL (32.0-36.0); NEUT# 8.96 thou/uL (2.00-7.15); RED BLOOD COUNT 3.6 mill/uL (4.20-5.60); RED CELL DISTRI WIDTH 16.9 % (11.5-15.5)
[2021-11-27 09:14] VITALS: BP 139/88
--- NOTE | 2021-11-27 09:14 | NUR ---
PATIENT IS RESTING IN BED. ASSESSMENT DONE. PATIENT IS ALERT AND ORIENT X3. TELE IN PLACE. PATIENT SATS 97% RA. PATIENT DENEIS PAIN AT THIS TIME. BRYNN CHEST DRESSING IN PLACE. PATIENT DENIES NEEDS AT THIS TIME. CALL LIGHT IN REACH.
[2021-11-27 11:05] VITALS: BP 147/90
--- NOTE | 2021-11-27 12:03 | NUR ---
PATIENT IS SITTING IN THE SIDE OF THE BED USING HER CELL PHONE WITH NO DISTRESS NOTED. PATIENT DENIES NEEDS AT THIS TIME. CALL LIGHT IN REACH.
[2021-11-27 15:18] VITALS: BP 145/69
--- NOTE | 2021-11-27 16:05 | NUR ---
PATIENT IS RESTING IN BED . PATIENT DENIES ANY NEEDS AT THIS TIME. CALL LIGHT IN REACH.
--- NOTE | 2021-11-27 16:55 | NUR ---
Discharge instructions given. Patient verbalizes understanding of same. Discharged in stable condition via Wheelchair to Home with staff. All belongings sent with pt.
== END 2021-11-27 16:55 | disposition home or self-care (01) ==
LOC: ED 07:49 → ED-I 09:34 → ED 09:49 → ED-I 09:50 → MS2 09:50 → ED-I 09:50 → MS2 12:47
PROVIDERS: Nurse Practitioner; ADMIT Internal Medicine; ATTEND Internal Medicine
DX: I13.0 Hypertensive heart and chronic kidney disease with heart failure and stage 1 through stage 4 chronic kidney disease, or unspecified chronic kidney disease (principal); I50.23 Acute on chronic systolic (congestive) heart failure; J96.01 Acute respiratory failure with hypoxia; U07.1 COVID-19; E11.22 Type 2 diabetes mellitus with diabetic chronic kidney disease; N18.9 Chronic kidney disease, unspecified; J43.9 Emphysema, unspecified; N17.9 Acute kidney failure, unspecified; B19.20 Unspecified viral hepatitis C without hepatic coma; K21.9 Gastro-esophageal reflux disease without esophagitis; F32.A Depression, unspecified; G47.33 Obstructive sleep apnea (adult) (pediatric); F17.200 Nicotine dependence, unspecified, uncomplicated; Z79.84 Long term (current) use of oral hypoglycemic drugs; Z95.0 Presence of cardiac pacemaker
CPT/HCPCS: G0378; J1956

== ENCOUNTER 2021-12-06 10:06 | Emergency (ER) | payer MEDICARE, MEDICAID ==
[~2021-12-06] VITALS: Ht 157.5 cm; Wt 72.7 kg
[~2021-12-06 10:06] MED LIST changes: +DICLOFENAC SODI OU
[2021-12-06] MEDS ORDERED: LORTAB 1010 MG PO (11:08)
[2021-12-06] MEDS ORDERED: CYCLOBENZAPRINE10 MG PO (11:08)
[2021-12-06 11:15] VITALS: BP 176/85
== END 2021-12-06 11:47 | disposition home or self-care (01) ==
LOC: ED 10:06
DX: M47.812 Spondylosis without myelopathy or radiculopathy, cervical region (principal); I11.0 Hypertensive heart disease with heart failure; I50.9 Heart failure, unspecified; E11.9 Type 2 diabetes mellitus without complications; J44.9 Chronic obstructive pulmonary disease, unspecified; F17.200 Nicotine dependence, unspecified, uncomplicated; Z79.84 Long term (current) use of oral hypoglycemic drugs

== ENCOUNTER 2021-12-12 08:48 | Emergency (ER) | payer MEDICARE, MEDICAID ==
[~2021-12-12] VITALS: Ht 157.5 cm; Wt 77.2 kg
[~2021-12-12 08:48] MED LIST changes: +CYCLOBENZAPRINE10 MG PO
[2021-12-12 09:26] LABS: HEMATOCRIT 36.3 % (37.0-47.0); HEMOGLOBIN 10.9 g/dl (12.0-16.0); IMMATURE GRANULOCYTES 0.3 % (0.0-5.0); MEAN CELL VOLUME 99.2 fL CALC (80.0-100.0); MEAN CORPUSCULAR HGB 29.8 pG CALC (26.0-32.0); NEUT# 6.34 thou/uL (2.00-7.15); RED BLOOD COUNT 3.66 mill/uL (4.20-5.60); RED CELL DISTRI WIDTH 14.3 % (11.5-15.5)
[2021-12-12 09:43] LABS: ALBUMIN 3.3 g/dL (3.2-5.0); BILIRUBIN, TOTAL 0.4 mg/dL (0.0-1.4); CREATININE 1.6 mg/dL (0.5-1.0); POTASSIUM 4.6 mmol/l (3.5-5.1); TOTAL PROTEIN 6.4 g/dL (6.3-8.2)
[2021-12-12] MEDS ORDERED: CLEOCIN300 MG PO (11:33)
[2021-12-12 12:09] VITALS: BP 176/91
== END 2021-12-12 12:15 | disposition home or self-care (01) ==
LOC: ED 08:48
PROVIDERS: Emergency Medicine
DX: J02.9 Acute pharyngitis, unspecified (principal); I11.0 Hypertensive heart disease with heart failure; I50.9 Heart failure, unspecified; E11.9 Type 2 diabetes mellitus without complications; J44.9 Chronic obstructive pulmonary disease, unspecified; G47.30 Sleep apnea, unspecified; F17.210 Nicotine dependence, cigarettes, uncomplicated; Z79.84 Long term (current) use of oral hypoglycemic drugs; Z20.822 Contact with and (suspected) exposure to COVID-19

== ENCOUNTER 2022-07-23 10:38 | Inpatient (IN) | payer MEDICARE, MEDICAID ==
[~2022-07-23] VITALS: Ht 157.5 cm; Wt 74.8 kg
[2022-07-23] VITALS (77 sets, daily range): BP systolic 121–193; BP diastolic 57–125
[~2022-07-23 10:38] MED LIST changes: +CLEOCIN300 MG PO
[2022-07-23 11:23] LABS: HEMATOCRIT 34.7 % (37.0-47.0); HEMOGLOBIN 11.2 g/dl (12.0-16.0); IMMATURE GRANULOCYTES 0.3 % (0.0-5.0); MEAN CORPUSCULAR HGB 31.6 pG CALC (26.0-32.0); MEAN CORPUSCULAR HGB CONC 32.3 g/dL CAL (32.0-36.0); NEUT# 4.51 thou/uL (2.00-7.15); RED BLOOD COUNT 3.54 mill/uL (4.20-5.60); RED CELL DISTRI WIDTH 16.1 % (11.5-15.5)
[2022-07-23 11:52] LABS: ALBUMIN 4.4 g/dL (3.2-5.0); CREATININE 1.3 mg/dL (0.5-1.0); TOTAL PROTEIN 7.4 g/dL (6.3-8.2)
[2022-07-23 11:54] LABS: BILIRUBIN, TOTAL 1.2 mg/dL (0.0-1.4); POTASSIUM 3.4 mmol/l (3.5-5.1)
[2022-07-24] VITALS (100 sets, daily range): BP systolic 97–161; BP diastolic 56–97
[2022-07-24 05:25] LABS: HEMATOCRIT 30.8 % (37.0-47.0); HEMOGLOBIN 9.9 g/dl (12.0-16.0); MEAN CELL VOLUME 98.7 fL CALC (80.0-100.0); MEAN CORPUSCULAR HGB 31.7 pG CALC (26.0-32.0); MEAN CORPUSCULAR HGB CONC 32.1 g/dL CAL (32.0-36.0); RED BLOOD COUNT 3.12 mill/uL (4.20-5.60); RED CELL DISTRI WIDTH 15.6 % (11.5-15.5)
[2022-07-24 05:49] LABS: CREATININE 1.3 mg/dL (0.5-1.0); POTASSIUM 3.4 mmol/l (3.5-5.1)
[2022-07-24 05:51] LABS: MAGNESIUM 1.3 mg/dL (1.6-2.3)
[2022-07-24] MEDS ORDERED: PROVENTIL HFA IN (13:58)
[2022-07-24] MEDS ORDERED: COREG25 MG PO (14:00)
[2022-07-24] MEDS ORDERED: FLAX SEED1000 MG PO (14:01)
[2022-07-24] MEDS ORDERED: IPRATROPIU0.5 MG/3 M IN (14:04)
[2022-07-24] MEDS ORDERED: HYDRALAZINE10 MG PO (14:04)
[2022-07-24] MEDS ORDERED: CRESTOR10 MG PO (14:06)
[2022-07-24] MEDS ORDERED: TRELEGY ELLIPTA1 AER PO (14:07)
[2022-07-24] MEDS ORDERED: ULTRAM50 M1 PO (14:08)
[2022-07-25 00:06] VITALS: BP 142/83
[2022-07-25 05:04] VITALS: BP 149/77
[2022-07-25 07:42] VITALS: BP 158/82
[2022-07-25] MEDS ORDERED: CRESTOR10 MG PO (10:41)
[2022-07-25] MEDS ORDERED: AMLODIPINE BESYL5 MG PO (10:42)
[2022-07-25] MEDS ORDERED: LOSARTAN POTASS50 MG PO (10:42)
[2022-07-25] MEDS ORDERED: OMEPRAZOLE20 MG PO (10:43)
[2022-07-25] MEDS ORDERED: OXYCODONE5 M1 PO (10:45)
[2022-07-25] MEDS ORDERED: MEDDOSEPAK PO (10:49)
[2022-07-25 12:06] LABS: HEMATOCRIT 34.2 % (37.0-47.0); HEMOGLOBIN 10.7 g/dl (12.0-16.0); MEAN CORPUSCULAR HGB 31.3 pG CALC (26.0-32.0); MEAN CORPUSCULAR HGB CONC 31.3 g/dL CAL (32.0-36.0); RED BLOOD COUNT 3.42 mill/uL (4.20-5.60); RED CELL DISTRI WIDTH 15.4 % (11.5-15.5)
[2022-07-25 12:24] LABS: CREATININE 1.6 mg/dL (0.5-1.0); MAGNESIUM 1.6 mg/dL (1.6-2.3)
[2022-07-25 12:25] LABS: POTASSIUM 4.4 mmol/l (3.5-5.1)
[2022-07-25 12:52] VITALS: BP 138/77
[2022-07-25 15:51] VITALS: BP 130/74
[2022-07-26 00:06] VITALS: BP 140/59
[2022-07-26 04:29] VITALS: BP 140/69
[2022-07-26 06:32] VITALS: BP 132/70
[2022-07-26 07:17] LABS: HEMATOCRIT 32.6 % (37.0-47.0); HEMOGLOBIN 10.4 g/dl (12.0-16.0); MEAN CELL VOLUME 99.7 fL CALC (80.0-100.0); MEAN CORPUSCULAR HGB 31.8 pG CALC (26.0-32.0); MEAN CORPUSCULAR HGB CONC 31.9 g/dL CAL (32.0-36.0); RED BLOOD COUNT 3.27 mill/uL (4.20-5.60); RED CELL DISTRI WIDTH 15.2 % (11.5-15.5)
[2022-07-26 07:55] LABS: MAGNESIUM 1.8 mg/dL (1.6-2.3); POTASSIUM 4.4 mmol/l (3.5-5.1)
[2022-07-26 11:55] VITALS: BP 164/80
[2022-07-26 15:16] VITALS: BP 154/77
[2022-07-26 19:10] VITALS: BP 153/75
[2022-07-27] VITALS (10 sets, daily range): BP systolic 136–153; BP diastolic 66–77
[2022-07-27 06:15] LABS: HEMATOCRIT 34.9 % (37.0-47.0); HEMOGLOBIN 11.1 g/dl (12.0-16.0); MEAN CELL VOLUME 99.4 fL CALC (80.0-100.0); MEAN CORPUSCULAR HGB 31.6 pG CALC (26.0-32.0); MEAN CORPUSCULAR HGB CONC 31.8 g/dL CAL (32.0-36.0); RED BLOOD COUNT 3.51 mill/uL (4.20-5.60); RED CELL DISTRI WIDTH 14.9 % (11.5-15.5)
[2022-07-27 06:29] LABS: POTASSIUM 4.5 mmol/l (3.5-5.1)
[2022-07-28] VITALS: BP 148/74
[2022-07-28 03:44] VITALS: BP 153/78
[2022-07-28 04:00] VITALS: BP 153/78
[2022-07-28 06:45] LABS: ALBUMIN 2.9 g/dL (3.2-5.0); CREATININE 1.9 mg/dL (0.5-1.0); POTASSIUM 4.6 mmol/l (3.5-5.1)
[2022-07-28 07:34] VITALS: BP 147/78
[2022-07-28 09:36] VITALS: BP 147/78
== END 2022-07-28 11:50 | disposition home health service (06) | DRG 291 ==
LOC: ED 10:38 → ED-I 12:40 → ED 13:02 → ICU 13:03 → MS2 07-24 17:00
PROVIDERS: Family Medicine; ADMIT Internal Medicine; ATTEND Internal Medicine
PROC: 02HV33Z Insertion of Infusion Device into Superior Vena Cava, Percutaneous Approach (ICD-10-PCS; principal; 2022-07-23)
DX: I13.0 Hypertensive heart and chronic kidney disease with heart failure and stage 1 through stage 4 chronic kidney disease, or unspecified chronic kidney disease (principal); I50.43 Acute on chronic combined systolic (congestive) and diastolic (congestive) heart failure; J44.1 Chronic obstructive pulmonary disease with (acute) exacerbation; N17.9 Acute kidney failure, unspecified; I16.0 Hypertensive urgency; E11.22 Type 2 diabetes mellitus with diabetic chronic kidney disease; N18.2 Chronic kidney disease, stage 2 (mild); I25.10 Atherosclerotic heart disease of native coronary artery without angina pectoris; E83.42 Hypomagnesemia; G47.33 Obstructive sleep apnea (adult) (pediatric); F32.A Depression, unspecified; B19.20 Unspecified viral hepatitis C without hepatic coma; M54.9 Dorsalgia, unspecified; G89.29 Other chronic pain; T44.7X6A Underdosing of beta-adrenoreceptor antagonists, initial encounter; F17.200 Nicotine dependence, unspecified, uncomplicated; Z91.128 Patient's intentional underdosing of medication regimen for other reason; Z95.810 Presence of automatic (implantable) cardiac defibrillator; Z20.822 Contact with and (suspected) exposure to COVID-19
CPT/HCPCS: J1650; J3475

== ENCOUNTER 2022-12-19 13:16 | Inpatient (IN) | payer MEDICARE, MEDICAID ==
[~2022-12-19] VITALS: Ht 157.5 cm; Wt 68.4 kg
[2022-12-19] VITALS (22 sets, daily range): BP systolic 144–174; BP diastolic 83–102
[~2022-12-19 13:16] MED LIST changes: +AMLODIPINE BESYL5 MG PO; +COREG25 MG PO; +FLAX SEED1000 MG PO; +HYDRALAZINE10 MG PO; +IPRATROPIU0.5 MG/3 M IN; +PROVENTIL HFA IN; +TRELEGY ELLIPTA1 AER PO
[2022-12-19 16:06] LABS: BASO% 0.4 % (0-3); EOS% 1.8 % (0-8); HEMATOCRIT 31.4 % (37.0-47.0); IMMATURE GRANULOCYTES 0.1 % (0.0-5.0); LYMPH% 17.8 % (15-41); MEAN CELL VOLUME 100.6 fL CALC (80.0-100.0); MEAN CORPUSCULAR HGB 31.1 pG CALC (26.0-32.0); MEAN CORPUSCULAR HGB CONC 30.9 g/dL CAL (32.0-36.0); MONO% 8.6 % (2-13); NEUT# 5.27 thou/uL (2.00-7.15); NEUT% 71.3 % (42-76); RED BLOOD COUNT 3.12 mill/uL (4.20-5.60); RED CELL DISTRI WIDTH 13.6 % (11.5-15.5)
[2022-12-19 16:13] LABS: HEMOGLOBIN 9.7 g/dl (12.0-16.0)
[2022-12-19 16:38] LABS: ALBUMIN 3.3 g/dL (3.2-5.0); CREATININE 1.6 mg/dL (0.5-1.0); POTASSIUM 4.2 mmol/l (3.5-5.1)
[2022-12-19 16:40] LABS: BILIRUBIN, TOTAL 0.3 mg/dL (0.02-1.3); TOTAL PROTEIN 5.7 g/dL (6.3-8.2)
[2022-12-19 17:58] LABS: URINE BILIRUBIN - DIPSTICK NEGATIVE (NEGATIVE); URINE BLOOD DIPSTICK NEGATIVE (NEGATIVE); URINE COLOR YELLOW; URINE GLUCOSE - DIPSTICK NEGATIVE (NEGATIVE); URINE KETONE NEGATIVE (NEGATIVE); URINE LEUK ESTERASE NEGATIVE (NEGATIVE); URINE PROTEIN - DIPSTICK NEGATIVE (NEG-TRACE); URINE SPECIFIC GRAVITY >=1.030; URINE UROBILINOGEN - DIPSTICK 0.2 E.U./dL (0.2)
[2022-12-19 18:00] LABS: URINE NITRITE - DIPSTICK NEGATIVE (Negative)
[2022-12-20 00:04] VITALS: BP 152/92
[2022-12-20 03:26] VITALS: BP 150/87
[2022-12-20 06:19] LABS: BASO% 0.5 % (0-3); EOS% 0.2 % (0-8); HEMATOCRIT 31.5 % (37.0-47.0); HEMOGLOBIN 9.7 g/dl (12.0-16.0); IMMATURE GRANULOCYTES 0.5 % (0.0-5.0); LYMPH% 5.6 % (15-41); MEAN CELL VOLUME 102.6 fL CALC (80.0-100.0); MEAN CORPUSCULAR HGB 31.6 pG CALC (26.0-32.0); MEAN CORPUSCULAR HGB CONC 30.8 g/dL CAL (32.0-36.0); MONO% 0.9 % (2-13); NEUT# 6.11 thou/uL (2.00-7.15); NEUT% 92.3 % (42-76); RED BLOOD COUNT 3.07 mill/uL (4.20-5.60); RED CELL DISTRI WIDTH 13.5 % (11.5-15.5)
[2022-12-20 06:30] LABS: ALBUMIN 3.4 g/dL (3.2-5.0); BILIRUBIN, TOTAL 0.4 mg/dL (0.02-1.3); CREATININE 1.6 mg/dL (0.5-1.0); MAGNESIUM 1.8 mg/dL (1.6-2.3); POTASSIUM 4.3 mmol/l (3.5-5.1)
[2022-12-20 06:47] VITALS: BP 141/79
[2022-12-20 10:20] VITALS: BP 156/84
[2022-12-20 14:48] VITALS: BP 137/83
[2022-12-20 19:31] VITALS: BP 146/80
[2022-12-21] VITALS (9 sets, daily range): BP systolic 128–176; BP diastolic 66–79
[2022-12-21 05:32] LABS: ALBUMIN 3.3 g/dL (3.2-5.0); CREATININE 1.9 mg/dL (0.5-1.0); MAGNESIUM 1.7 mg/dL (1.6-2.3); POTASSIUM 4.8 mmol/l (3.5-5.1); TOTAL PROTEIN 5.9 g/dL (6.3-8.2)
[2022-12-21 05:35] LABS: BASO% 0.4 % (0-3); HEMATOCRIT 33.6 % (37.0-47.0); HEMOGLOBIN 10.2 g/dl (12.0-16.0); IMMATURE GRANULOCYTES 0.3 % (0.0-5.0); LYMPH% 3.9 % (15-41); MEAN CELL VOLUME 102.1 fL CALC (80.0-100.0); MEAN CORPUSCULAR HGB CONC 30.4 g/dL CAL (32.0-36.0); MONO% 1.5 % (2-13); NEUT# 14.02 thou/uL (2.00-7.15); RED BLOOD COUNT 3.29 mill/uL (4.20-5.60); RED CELL DISTRI WIDTH 13.4 % (11.5-15.5)
[2022-12-21 05:37] LABS: BILIRUBIN, TOTAL 0.1 mg/dL (0.02-1.3)
[2022-12-21 06:05] LABS: NEUT% 93.9 % (42-76)
[2022-12-22 04:19] VITALS: BP 147/80
[2022-12-22 05:22] LABS: BASO% 0.2 % (0-3); HEMATOCRIT 33.3 % (37.0-47.0); HEMOGLOBIN 10.3 g/dl (12.0-16.0); IMMATURE GRANULOCYTES 0.5 % (0.0-5.0); MEAN CELL VOLUME 101.5 fL CALC (80.0-100.0); MEAN CORPUSCULAR HGB 31.4 pG CALC (26.0-32.0); MEAN CORPUSCULAR HGB CONC 30.9 g/dL CAL (32.0-36.0); MONO% 2.2 % (2-13); NEUT# 16.83 thou/uL (2.00-7.15); NEUT% 94.1 % (42-76); RED BLOOD COUNT 3.28 mill/uL (4.20-5.60); RED CELL DISTRI WIDTH 13.3 % (11.5-15.5)
[2022-12-22 05:46] LABS: ALBUMIN 3.2 g/dL (3.2-5.0); CREATININE 1.9 mg/dL (0.5-1.0); MAGNESIUM 1.9 mg/dL (1.6-2.3); POTASSIUM 4.4 mmol/l (3.5-5.1); TOTAL PROTEIN 5.5 g/dL (6.3-8.2)
[2022-12-22 06:42] VITALS: BP 146/83
[2022-12-22 10:09] VITALS: BP 155/89
[2022-12-22 15:42] VITALS: BP 145/89
[2022-12-22 18:47] VITALS: BP 146/67
[2022-12-22 23:35] VITALS: BP 145/80
[2022-12-23 04:26] VITALS: BP 149/75
[2022-12-23 05:37] LABS: BASO% 0.2 % (0-3); HEMATOCRIT 34.7 % (37.0-47.0); HEMOGLOBIN 10.8 g/dl (12.0-16.0); IMMATURE GRANULOCYTES 1.1 % (0.0-5.0); LYMPH% 4.2 % (15-41); MEAN CELL VOLUME 100.9 fL CALC (80.0-100.0); MEAN CORPUSCULAR HGB 31.4 pG CALC (26.0-32.0); MEAN CORPUSCULAR HGB CONC 31.1 g/dL CAL (32.0-36.0); MONO% 2.1 % (2-13); NEUT# 15.1 thou/uL (2.00-7.15); NEUT% 92.4 % (42-76); RED BLOOD COUNT 3.44 mill/uL (4.20-5.60); RED CELL DISTRI WIDTH 13.1 % (11.5-15.5)
[2022-12-23 06:16] LABS: CREATININE 1.8 mg/dL (0.5-1.0); POTASSIUM 3.7 mmol/l (3.5-5.1)
[2022-12-23 07:04] VITALS: BP 136/79
[2022-12-23 11:27] VITALS: BP 138/75
[2022-12-23 12:27] LABS: C. DIFFICILE TOXIN A&B NEGATIVE (NEGATIVE)
[2022-12-23] MEDS ORDERED: DOXYCYCLINE100 MG PO (12:33)
[2022-12-23] MEDS ORDERED: PREDNISONE20 MG PO (12:34)
== END 2022-12-23 14:55 | DRG 291 ==
LOC: ED 13:16 → MS2 20:57
PROVIDERS: Family Medicine; Nurse Practitioner Family; ADMIT Internal Medicine; ATTEND Internal Medicine
PROC: 05HM33Z Insertion of Infusion Device into Right Internal Jugular Vein, Percutaneous Approach (ICD-10-PCS; principal; 2022-12-19)
DX: I13.0 Hypertensive heart and chronic kidney disease with heart failure and stage 1 through stage 4 chronic kidney disease, or unspecified chronic kidney disease (principal); I50.23 Acute on chronic systolic (congestive) heart failure; J18.9 Pneumonia, unspecified organism; K86.1 Other chronic pancreatitis; J43.9 Emphysema, unspecified; E11.22 Type 2 diabetes mellitus with diabetic chronic kidney disease; N18.2 Chronic kidney disease, stage 2 (mild); K52.9 Noninfective gastroenteritis and colitis, unspecified; K21.9 Gastro-esophageal reflux disease without esophagitis; F32.A Depression, unspecified; B19.20 Unspecified viral hepatitis C without hepatic coma; G47.33 Obstructive sleep apnea (adult) (pediatric); Z95.0 Presence of cardiac pacemaker; Z20.822 Contact with and (suspected) exposure to COVID-19
CPT/HCPCS: Q9967

== ENCOUNTER 2023-01-21 01:04 | Inpatient (IN) | payer MEDICARE, MEDICAID ==
[2023-01-21] VITALS (21 sets, daily range): BP systolic 114–143; BP diastolic 59–79
[~2023-01-21] VITALS: Ht 157.5 cm; Wt 68.2 kg
[~2023-01-21 01:04] MED LIST changes: +DOXYCYCLINE100 MG PO
[2023-01-21 01:53] LABS: BASO% 0.3 % (0-3); EOS% 0.6 % (0-8); HEMATOCRIT 29.5 % (37.0-47.0); HEMOGLOBIN 8.9 g/dl (12.0-16.0); IMMATURE GRANULOCYTES 1.4 % (0.0-5.0); LYMPH% 10.9 % (15-41); MEAN CELL VOLUME 101.7 fL CALC (80.0-100.0); MEAN CORPUSCULAR HGB 30.7 pG CALC (26.0-32.0); MEAN CORPUSCULAR HGB CONC 30.2 g/dL CAL (32.0-36.0); MONO% 7.5 % (2-13); NEUT# 11.5 thou/uL (2.00-7.15); NEUT% 79.3 % (42-76); RED BLOOD COUNT 2.9 mill/uL (4.20-5.60); RED CELL DISTRI WIDTH 13.8 % (11.5-15.5)
[2023-01-21 02:03] LABS: ALBUMIN 4.2 g/dL (3.2-5.0); BILIRUBIN, TOTAL 0.8 mg/dL (0.02-1.3); CREATININE 4.5 mg/dL (0.5-1.0); POTASSIUM 4.9 mmol/l (3.5-5.1); TOTAL PROTEIN 7.2 g/dL (6.3-8.2)
--- NOTE | 2023-01-21 02:59 | NUR ---
PT IS NEWLY DIALYSIS PT, RECENTLY DISCHARGED FROM [facility] WHERE SHE HAD MULTIPLE CENTRAL LINES REMOVE. SEVERAL IV LINE ATTEMPTS MADE TO GIVE IV MEDICATION FOR BP, BUT NO RESULT. ATTEMPTING PO BP MEDICATION TO LEVEL BP, PER PHYSICIAN, WILL ATTEMPT CENTRAL LINE IF BP NOT RESOLVED.
--- NOTE | 2023-01-21 04:45 | NUR ---
ONCE ADMITTANCE DETERMINED BY PHYSICIAN, DR PABLO PLACED LINE, 22G IN LAC. RT CALLED TO BEGIN PROCESS OF WEANING OFF BIPAP. PT VITALS STABLE, WNL. PT RESTING COMFORTABLY, NO DISTRESS NOTED.
--- NOTE | 2023-01-21 06:45 | NUR ---
REPORT RECEIVED AT THIS TIME. PATIENT AWAITING ICU ADMISSION.
--- NOTE | 2023-01-21 07:27 | NUR ---
Admission Note Report Given to: BEDSIDE RN Transported by: Wheelchair X Stretcher Transported with: X Nurse Transporter X Patent IV X O2 X Watch Engineer Location: X ICU MS2
--- NOTE | 2023-01-21 08:15 | NUR ---
REPORT RECEIVED, CARE ASSUMED. PATIENT RESTING ON BED. EYES CLOSED, AWAKENS TO NAME. C/O GENERALIZED BODY ACHES. PATIENT HAS CENTRAL LINE IN PLACE. AWARE OF PENDING DIALYSYS LATER TODAY. DR RUSH AT BEDSIDE FOR EVAL.
--- NOTE | 2023-01-21 09:16 | NUR ---
PATIENT MEDICATED ORDERED. BREAKFAST TRAY WARMED.
--- NOTE | 2023-01-21 11:15 | NUR ---
PT REFUSED TROP LAB, I EDUCATED AND THEN SHE LET LAB DRAW - PT STABLE CURRENTLY ON 3 L VIA NC - NO S/S DISTRESS - CALL LIGHT IN REACH - WILL MONITOR
--- NOTE | 2023-01-21 13:59 | NUR ---
PIV INFILTRATED - PT REFUSED TO LET ME TRY ANOTHER ONE CURRENTLY SHE STATES SHES EXHAUSTED - WILL TRY AGAIN AFTER SHE EATS - CALL LIGHT IN REACH
--- NOTE | 2023-01-21 15:08 | NUR ---
PT TAKEN TO DIALYSIS IN STABLE CONDITION
--- NOTE | 2023-01-21 15:30 | NUR ---
PATIENT TRANSFERRED VIA BED TO DIALYSIS ROOM [facility]. PATIENT TOLERATED WELL. DENIES NEEDING ANYTHING AT THIS TIME.
--- NOTE | 2023-01-21 15:33 | NUR ---
HEMODIALYSIS INITIATED AT 1533. PATIENT TOLERATING WELL. DENIES NEEDING ANYTHING AT THIS TIME.
--- NOTE | 2023-01-21 15:38 | NUR ---
PT OFF FLOOR AND IN DIALYSIS
--- NOTE | 2023-01-21 17:01 | NUR ---
Pt still in dialysis
--- NOTE | 2023-01-21 18:58 | NUR ---
POST-TX: PT TOLERATED PROCEDURE WELL. DENIES ANY NEEDS, VOICES NO COMPLAINTS. PHYSICAL ASSESMENT UNCHANGED.POST PROCEDURE WT TAKEN IN BEDSCALE PT UNABLE TO TOLERATE STANGING SCALE. BED WT 73.3 KG. PT PLEASANT AND RESP UNABORED. 2L REMOVED VIA HEMODIALYSIS. CVC FLUSHED ORDERED. PATENT. PT RETURNED TO ICU VIA BED AND BEDSIDE REPORT TO NURSES OMKAR AND TIA.
[2023-01-22] VITALS (40 sets, daily range): BP systolic 113–138; BP diastolic 57–81
[2023-01-22 00:37] LABS: HEMATOCRIT 24.8 % (37.0-47.0); HEMOGLOBIN 7.6 g/dl (12.0-16.0); MEAN CELL VOLUME 100.4 fL CALC (80.0-100.0); MEAN CORPUSCULAR HGB 30.8 pG CALC (26.0-32.0); MEAN CORPUSCULAR HGB CONC 30.6 g/dL CAL (32.0-36.0); RED BLOOD COUNT 2.47 mill/uL (4.20-5.60); RED CELL DISTRI WIDTH 13.5 % (11.5-15.5)
[2023-01-22 00:59] LABS: CREATININE 2.9 mg/dL (0.5-1.0); POTASSIUM 3.4 mmol/l (3.5-5.1)
--- NOTE | 2023-01-22 08:19 | NUR ---
REPORT RECEIVED FROM AD OPERATIONS SPECIALIST - PT OBSERVED IN BED WITH EYES CLOSED - BED IN LOW LOCKED POSITION - CALL LIGHT IN REACH
--- NOTE | 2023-01-22 10:50 | NUR ---
Pt in bed with eyes closed - pt came by earlier - pt stable on monitor - call light in reach
--- NOTE | 2023-01-22 14:29 | NUR ---
Pt c/o pain, will medicate per md order - pt stable on monitor - call light in reach
--- NOTE | 2023-01-22 18:13 | NUR ---
pt denies any needs - stable on room air - call light in reach
--- NOTE | 2023-01-22 20:07 | NUR ---
INDUSTRIAL ILLUMINATING ENGINEER'S FROM MD YADAV PT TO ROOM 267 TO NADER MCKINNEY. PT VSS. NAD.
--- NOTE | 2023-01-22 20:15 | NUR ---
PATIENT RECIEVED FROM ICU VIA WHEELCHAIR-AWAKE ALERT AND ORIENTEDX3. O2 VIA NASAL CANNULA IN PLACE WITH O2 SAT OF 94%. TELE MONITOR IN PLACE. H/D CATH INTACT TO RIGHT UPPER CHEST. SALINE LOCK TO LAC INTACT. LUNGS WITH CRACKLES NOTED IN THE BASES. ABD IS SOFT WITH ACTIVE BS. PATIENT STATES THAT SHE IS FEELING BETTER SINCE STARTING H/D. SWELLING IS DOWN. FOR H/D AGAIN TOMORROW. DIALYSIS COORDINATOR AWAKE. ORIENTED TO ROOM AND SURROUNDINGS. SAFEETY PRECAUTIONS REINFORCED. CALL LIGHT IN REACH, WILL CONT TO MONITOR
--- NOTE | 2023-01-22 20:56 | NUR ---
REPORT GIVEN VIA PHONE TO HANK DOE ON MS UNIT.
--- NOTE | 2023-01-23 00:58 | NUR ---
RESTING IN BED WITH O2 VIA NASAL CANNULA IN PLACE AT 2LPM. NO COMPLAINTS AT THIS TIME. TELE MONITOR IN PLACE. RIGHT UPPER CHEST H/D CATH INTACT. SALINE LOCK TO LAC INTACT. CALL LIGHT IN REACH. WILL CONT TO MONITOR.
[2023-01-23 03:18] VITALS: BP 142/61
--- NOTE | 2023-01-23 04:31 | NUR ---
RESTING IN BED WITH O2 VIA NASAL CANNULA IN PLACE. EYES ARE CLOSED AND RESPS ARE EVEN AND UNLABORED. CALL LIGHT IN REACH. WILL CONT TO MONITOR.
--- NOTE | 2023-01-23 04:49 | NUR ---
PATIENT RESTING IN BED-C/O LEFT FOOT PAIN-7/10 ON PAIN SCALE. MEDICATED WITH ROXICODONE 5MG PO FOR PAIN, CALL LIGHT IN REACH, WILL CONT TO MONITOR.
[2023-01-23 05:49] LABS: HEMATOCRIT 25.7 % (37.0-47.0); HEMOGLOBIN 7.7 g/dl (12.0-16.0); MEAN CORPUSCULAR HGB 30.6 pG CALC (26.0-32.0); RED BLOOD COUNT 2.52 mill/uL (4.20-5.60); RED CELL DISTRI WIDTH 13.7 % (11.5-15.5)
[2023-01-23 05:58] LABS: BILIRUBIN, TOTAL 0.1 mg/dL (0.02-1.3); CREATININE 3.9 mg/dL (0.5-1.0); MAGNESIUM 1.7 mg/dL (1.6-2.3); POTASSIUM 3.6 mmol/l (3.5-5.1); TOTAL PROTEIN 5.7 g/dL (6.3-8.2)
[2023-01-23 06:00] VITALS: BP 131/59
--- NOTE | 2023-01-23 07:34 | NUR ---
PATIENT RESTING IN BED. GREETED, INTRODUCED RN. ALL SAFETY MEASURES IN PLACE.
--- NOTE | 2023-01-23 10:19 | NUR ---
pt on room air sat 93%
[2023-01-23 10:40] VITALS: BP 133/69
--- NOTE | 2023-01-23 12:08 | NUR ---
Attempted treatment this am, she reported just finishing a shower and then first on for dialysis this am. She was not up to PT at this time. Did discuss with pt progression of activities. She wants home with home health. [facility] as per evaluation.
[2023-01-23 14:57] VITALS: BP 120/57
[2023-01-23 14:58] VITALS: BP 123/56
--- NOTE | 2023-01-23 20:00 | NUR ---
Patient returned from dialysis. Report received from dialysis nurse at patient bedside. Patient c/o generalized pain. Assisted with positioning in bed then medicated for pain. Call light and personal items within reach.
[2023-01-24] VITALS (9 sets, daily range): BP systolic 106–146; BP diastolic 43–69
--- NOTE | 2023-01-24 02:33 | NUR ---
Patient c/o pain to right foot. States that the "pain started once I stared dialysis". Medicated for pain. Currently restung quietly in bed. Call light within reach.
[2023-01-24 05:25] LABS: HEMATOCRIT 26.3 % (37.0-47.0); HEMOGLOBIN 7.9 g/dl (12.0-16.0); MEAN CELL VOLUME 102.3 fL CALC (80.0-100.0); MEAN CORPUSCULAR HGB 30.7 pG CALC (26.0-32.0); RED BLOOD COUNT 2.57 mill/uL (4.20-5.60); RED CELL DISTRI WIDTH 13.6 % (11.5-15.5)
[2023-01-24 05:35] LABS: ALBUMIN 3.2 g/dL (3.2-5.0); MAGNESIUM 1.6 mg/dL (1.6-2.3); POTASSIUM 3.5 mmol/l (3.5-5.1); TOTAL PROTEIN 5.8 g/dL (6.3-8.2)
[2023-01-24 05:38] LABS: BILIRUBIN, TOTAL 0.2 mg/dL (0.02-1.3); CREATININE 2.9 mg/dL (0.5-1.0)
--- NOTE | 2023-01-24 07:50 | NUR ---
PT RESTING IN SEMIFOWLERSPOSITION A/OX3 ASSESSMENTAND VSCOMPLETED.HEARTRHYTHM NON TELE.RESPIRATIONS ON ROOM AIR IS SITE NOTED ALLSAFETY PRECAUTIONS IN REACH.PTDENIES ADDITIONAL NEEDS AT THE TIME.
--- NOTE | 2023-01-24 13:04 | NUR ---
PT DOES NOT WANT TO BE POKED AGAIN TO INFORM MD IV MED NOW PO.
--- NOTE | 2023-01-24 13:36 | NUR ---
PROVIDER AWARE OF NO IV IN PTPROVIDER STATED OKAY FOR PT TO HAVENO IV .
--- NOTE | 2023-01-24 16:35 | NUR ---
PT BP MEDICATION HELDPER PROVIDER.PROVIDER AWARE OF LOW BLOOD PRESSURES.
--- NOTE | 2023-01-24 20:06 | NUR ---
PT RESTING, NO DISTRESS IS NOTED, CALL LIGHT WITHIN REACHED, WILL CONT TO MONITOR
--- NOTE | 2023-01-25 01:38 | NUR ---
PT C/O GENERALIZE PAIN ROXICODONE 5MG PO Q4H WAS GIVEN, WILL REASSESS PAIN CALL LIGHT WITHIN REACHED, WILL CONT TO MONITOR
[2023-01-25 03:26] VITALS: BP 145/72
[2023-01-25 05:54] VITALS: BP 133/65
--- NOTE | 2023-01-25 08:11 | NUR ---
PT SLEEPING C/O NO PAIN, VITALS STABLE, CALL LIGHT WITHIN REACHED, WILL CONT TO MONITOR
[2023-01-25 08:44] LABS: CREATININE 3.5 mg/dL (0.5-1.0); POTASSIUM 3.9 mmol/l (3.5-5.1)
[2023-01-25 10:00] VITALS: BP 145/77
[2023-01-25] MEDS ORDERED: DOXYCYCLINE100 MG PO (12:43)
--- NOTE | 2023-01-25 13:27 | NUR ---
HEMODIALYSIS TREATMENT INITIATED AT 1327. SEE HEMODIALYSIS TREATMENT PROCESS INTERVENTION AND TABLO TREATMENT FLOWSHEET FOR TREATMENT SPECIFIC DETAILS.
[2023-01-25 16:04] VITALS: BP 153/80
--- NOTE | 2023-01-25 16:46 | NUR ---
HEMODIALYSIS TREATMENT INITIATED AT 1646. SEE HEMODIALYSIS TREATMENT PROCESS INTERVENTION AND TABLO TREATMENT FLOWSHEET FOR TREATMENT SPECIFIC DETAILS.
== END 2023-01-25 18:12 | disposition home health service (06) | DRG 291 ==
LOC: ED 01:04 → ED-I 03:55 → ED 05:29 → ED-I 05:30 → ICU 07:02 → MS2 01-22 20:40
PROVIDERS: Emergency Medicine; Internal Medicine Nephrology; ADMIT Internal Medicine; ATTEND Internal Medicine
PROC: 5A09357 Assistance with Respiratory Ventilation, Less than 24 Consecutive Hours, Continuous Positive Airway Pressure (ICD-10-PCS; principal; 2023-01-21)
PROC: 5A1D70Z Performance of Urinary Filtration, Intermittent, Less than 6 Hours Per Day (ICD-10-PCS; 2023-01-21)
PROC: 5A1D70Z Performance of Urinary Filtration, Intermittent, Less than 6 Hours Per Day (ICD-10-PCS; 2023-01-23)
PROC: 5A1D70Z Performance of Urinary Filtration, Intermittent, Less than 6 Hours Per Day (ICD-10-PCS; 2023-01-25)
DX: I13.2 Hypertensive heart and chronic kidney disease with heart failure and with stage 5 chronic kidney disease, or end stage renal disease (principal); I50.23 Acute on chronic systolic (congestive) heart failure; J18.9 Pneumonia, unspecified organism; N18.6 End stage renal disease; J44.0 Chronic obstructive pulmonary disease with (acute) lower respiratory infection; N25.81 Secondary hyperparathyroidism of renal origin; E11.22 Type 2 diabetes mellitus with diabetic chronic kidney disease; D63.1 Anemia in chronic kidney disease; B19.20 Unspecified viral hepatitis C without hepatic coma; K21.9 Gastro-esophageal reflux disease without esophagitis; F41.9 Anxiety disorder, unspecified; G47.33 Obstructive sleep apnea (adult) (pediatric); F32.A Depression, unspecified; F17.200 Nicotine dependence, unspecified, uncomplicated; M10.9 Gout, unspecified; Z99.2 Dependence on renal dialysis; Z95.0 Presence of cardiac pacemaker; Z20.822 Contact with and (suspected) exposure to COVID-19
CPT/HCPCS: J1644